=== PATIENT | female | born 1985 | race American Indian/Alaskan Native ===

== ENCOUNTER 2017-03-22 07:58 | Emergency (ER) | payer OTHER ==
--- NOTE | 2017-03-22 08:28 | Emergency Department Report ---
Minor Respiratory - HPI Chief Complaint: Sore Throat Stated Complaint: SORE THROAT Time Seen by Provider: 03/22/17 08:26 Duration: 3 Days Pain Location: Throat Severity: moderate Minor Respiratory: Yes Sore Throat, Yes Able to Tolerate Fluids, No Rhinorrhea, No Ear Pain, No Cough, No Sick Contacts (works in rest), No Hemoptysis, No Chest Pain, No Shortness of Breath, No Fever Other History: dm ED Review of Systems ROS: Stated complaint: SORE THROAT Other details as noted in HPI Comment: Unobtainable due to pts medical conditions Constitutional: no symptoms reported, see HPI. denies: chills, diaphoresis, fever, malaise, weakness Eyes: as per HPI. denies: eye pain, eye discharge, vision change ENT: as per HPI, throat pain, other (no exudate but does have 2 small opal appearing areas. no abscess.). denies: ear pain, dental pain, hearing loss, epistaxis, congestion Respiratory: no symptoms reported, see HPI. denies: cough, orthopnea, shortness of breath, SOB with exertion, SOB at rest, stridor, wheezing Cardiovascular: as per HPI. denies: chest pain, palpitations, dyspnea on exertion, orthopnea, edema, syncope, paroxysmal nocturnal dyspnea Endocrine: no symptoms reported, see HPI. denies: excessive sweating, flushing , intolerance to cold, intolerance to heat, increased hunger, increased thirst, increased urine, unexplained weight gain, unexplained weight loss Gastrointestinal: as per HPI. denies: abdominal pain, nausea, vomiting, diarrhea, constipation, hematemesis, melena, hematochezia Genitourinary: as per HPI. denies: urgency, dysuria, frequency, hematuria, discharge, abnormal menses, dyspareunia Musculoskeletal: as per HPI. denies: back pain, joint swelling, arthralgia, myalgia Skin: as per HPI. denies: rash, lesions, change in color, change in hair/nails , pruritus Neurological: as per HPI. denies: headache, weakness, numbness, paresthesias, confusion, abnormal gait, vertigo Psychiatric: as per HPI. denies: anxiety, depression, auditory hallucinations, visual hallucinations, homicidal thoughts, suicidal thoughts Hematological/Lymphatic: as per HPI. denies: easy bleeding, easy bruising, swollen glands ED Past Medical Hx - Past Medical History Previous Medical History?: Yes Hx Diabetes: Yes (for 3 y sees pcp) - Surgical History Past Surgical History?: Yes Additional Surgical History: 3 c-sections - Family History Family history: diabetes (mother) - Social History Smoking Status: Current Some Day Smoker Substance Use Type: None - Medications Home Medications: Home Medications Medication Instructions Recorded Confirmed Last Taken Type glipiZIDE [Glucotrol] 5 mg PO QDAY #30 tablet 07/18/14 05/14/15 05/14/15 08:00 Rx metFORMIN [Glucophage] 850 mg PO BID #60 tablet 07/18/14 05/14/15 05/14/15 08: 00 Rx Insulin Glargine [Lantus] 40 unit SUB-Q BID 05/14/15 05/14/15 Unknown History Amoxicillin [Trimox CAP] 500 mg PO BID #20 capsule 03/22/17 Unknown Rx Minor Respiratory Exam - Exam General: Vital signs noted. No distress. Alert and acting appropriately. HEENT: Yes Pharyngeal Erythema, Yes Moist Mucous Membranes, No Pharyngeal Exudates, No Rhinorrhea, No Conjuctival Injection, No Frontal Tenderness, No Maxillary Tenderness Ear: Neither TM Bulge, Neither TM Erythema, Neither EAC Pain, Neither EAC Discharge Neck: Yes Supple, No Adenopathy Lungs: Yes Good Air Exchange, No Wheezes, No Ronchi, No Stridor, No Cough, No Labored Respirations, No Retractions, No Use of Accessory Muscles, No Other Abnormal Lung Sounds Heart: Yes Regular, No Murmur Abdomen: Yes Normal Bowel Sounds, No Tenderness, No Peritoneal Signs Skin: No Rash, No Edema Neurologic: Alert and oriented, no deficits. Musculoskeletal: Unremarkable. 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 no cp no sob no dizziness no polyuria/dipsia/phasia did not take insulin today- she is only on insulin (not other meds on med rec on admit, rn notified) bs 494 insulin sq per orders pt educated given dm materials and referred to DM class at [facility]- free 03/22/17 09:50 bs trending down no tachy no hypotension no cp no sob no polyuria no polydipsia pt states pcp told her HgA1C was high but she can not remember number. She is not compliant w diet- she never got dm education bc her ins did not cover it. Reevaluation #2: 03/22/17 10:05 vss. no complaints on dc taking po bs trending down education reinforced fu pcp on Sunday ED Medical Decision Making - Medical Decision Making pharyngitis, non ill appearing DM- did not take insulin this am- hyperglycemic see note Critical care attestation.: If time is entered above; I have spent that time in minutes in the direct care of this critically ill patient, excluding procedure time. ED Disposition Clinical Impression: Pharyngitis, Diabetes, Hyperglycemia Disposition: DC-01 TO HOME OR SELFCARE Is pt being admited?: No Does the pt Need Aspirin: No Condition: Stable Instructions: How to Check Your Blood Sugar (ED), Diabetic Foot Care (ED), Diabetic Hypoglycemia (ED), Diabetes Mellitus Type 2 in Adults (ED), Managing Diabetes During Sick Days (ED), Hyperglycemia, Non-Diabetic (ED), Diabetic Hyperglycemia (ED) Additional Instructions: rest fluids good hand washing new tooth brush med as ordered monitor your blood sugar- it may go up due to illness, keep a record of bs in your phone or on paper to show your pcp. follow up pcp Sunday for recheck motrin and/or tylenol alternating for pain or fever diabetic diet as we discussed See attached papers diabetic class as we discussed Prescriptions: Amoxicillin [Trimox CAP] 500 mg PO BID #20 capsule Referrals: KODAK EPPERSON MD [Staff Physician] - 3-5 Days PRIMARY MD CELINA [Primary Care Provider] - 3-5 Days [facility] [Outside] - 3-5 Days [facility] [Outside] - 3-5 Days ASHISH MORALES MD [Referring] - 3-5 Days Forms: Work/School Release Form(ED) Time of Disposition: 08:39
[2017-03-22] MEDS ORDERED: TRIMOX PO ONE (08:37)
[2017-03-22 08:56] VITALS: BP 111/80
== END 2017-03-22 09:57 | disposition home or self-care (01) ==
LOC: ED 07:58
DX: J02.9 Acute pharyngitis, unspecified (principal); E11.65 Type 2 diabetes mellitus with hyperglycemia; Z72.0 Tobacco use; Z79.4 Long term (current) use of insulin
CPT/HCPCS: 82962; 96372; J1815

== ENCOUNTER 2017-09-24 10:05 | Inpatient (IN) | payer OTHER ==
[2017-09-24 10:45] LABS: BUN/Creatinine Ratio 16; Blood Urea Nitrogen 11 mg/dL (7-17); Calcium 9.1 mg/dL (8.4-10.2); Hemolysis Index 17
[2017-09-24 10:56] LABS: Basophils # (Auto) 0.1 K/mm3 (0.0-0.1); Basophils % (Auto) 0.5 % (0.0-1.8); Eosinophils % (Auto) 0.1 % (0.0-4.3); Hematocrit 50.1 % (30.3-42.9); Hemoglobin 16.2 gm/dl (10.1-14.3); Lymphocytes # (Auto) 1.8 K/mm3 (1.2-5.4); Lymphocytes % (Auto) 12.8 % (13.4-35.0); Mean Corpuscular HGB Conc 32 % (30-34); Mean Corpuscular Hemoglobin 32 pg (28-32); Mean Corpuscular Volume 99 fl (79-97); Monocytes # (Auto) 0.4 K/mm3 (0.0-0.8); Monocytes % (Auto) 2.9 % (0.0-7.3); Platelet Count 330 K/mm3 (140-440); Red Blood Count 5.09 M/mm3 (3.65-5.03); Red Cell Distribution Width 13.7 % (13.2-15.2)
[2017-09-24] MEDS ORDERED: NACL 0.9% 1000 ML 1,000 ML IV ONE ×2 (11:11→11:23)
[2017-09-24] MEDS ORDERED: D50W (25GM) Syringe IV PRN (11:12)
[2017-09-24 11:47] LABS: Bilirubin,Urine NEG (Negative); Blood,Urine SM (Negative); Color,Urine Straw (Yellow); Mucus,Urine FEW /HPF; Urobilinogen,Urine < 2.0 mg/dL (<2.0)
[2017-09-24 11:50] LABS: HCG Qualitative,Urine Negative (Negative)
[2017-09-24 12:18] LABS: INR 1.07 (0.87-1.13)
[2017-09-24 12:19] LABS: Partial Thromboplastin Time 24.2 Sec. (24.2-36.6)
[2017-09-24 12:28] LABS: BUN/Creatinine Ratio 17; Blood Urea Nitrogen 12 mg/dL (7-17); Calcium 9.2 mg/dL (8.4-10.2); Hemolysis Index 5
[2017-09-24 12:29] LABS: Creatine Kinase MB 2.2 ng/mL (0.0-4.0)
[2017-09-24 12:32] LABS: Albumin 5.1 g/dL (3.9-5); Bilirubin,Direct 0.3 mg/dL (0-0.2)
--- NOTE | 2017-09-24 12:44 | Emergency Department Report ---
ED General Adult HPI - General Chief complaint: Hyperglycemia Stated complaint: HIGH BLOOD SUGAR Time Seen by Provider: 09/24/17 11:06 Source: patient, family Mode of arrival: Ambulatory Limitations: No Limitations - History of Present Illness Initial comments: Patient is poorly communicative. She is able to communicate but is choosing not to at this point. She arrives here with her /significant other. He states that she always comes here and she was here last year for similar symptoms. I did not find a record of her being admitted for DKA here last year. In any case the principal concern has been elevated blood sugars. The patient herself is not answering questions. She takes 2 types of insulin but is not telling us which type. The gentleman with her in for his knee she has been vomiting. She took additional insulin during the night. -: Gradual, hour(s), days(s) Associated Symptoms: nausea/vomiting - Related Data Home Medications Medication Instructions Recorded Confirmed Last Taken Insulin Glargine [Lantus] 40 unit SUB-Q BID 05/14/15 05/14/15 Unknown Previous Rx's Medication Instructions Recorded Last Taken Type glipiZIDE [Glucotrol] 5 mg PO QDAY #30 tablet 07/18/14 05/14/15 08:00 Rx metFORMIN [Glucophage] 850 mg PO BID #60 tablet 07/18/14 05/14/15 08:00 Rx Amoxicillin [Trimox CAP] 500 mg PO BID #20 capsule 03/22/17 Unknown Rx Allergies Allergy/AdvReac Type Severity Reaction Status Date / Time No Known Allergies Allergy Verified 09/24/17 10:18 ED Review of Systems ROS: Stated complaint: HIGH BLOOD SUGAR Other details as noted in HPI Comment: Unobtainable due to pts medical conditions ED Past Medical Hx - Past Medical History Previous Medical History?: Yes Hx Diabetes: Yes - Surgical History Past Surgical History?: Yes Additional Surgical History: 3 c-sections - Social History Smoking Status: Current Every Day Smoker Substance Use Type: Alcohol - Medications Home Medications: Home Medications Medication Instructions Recorded Confirmed Last Taken Type glipiZIDE [Glucotrol] 5 mg PO QDAY #30 tablet 07/18/14 05/14/15 05/14/15 08:00 Rx metFORMIN [Glucophage] 850 mg PO BID #60 tablet 07/18/14 05/14/15 05/14/15 08: 00 Rx Insulin Glargine [Lantus] 40 unit SUB-Q BID 05/14/15 05/14/15 Unknown History Amoxicillin [Trimox CAP] 500 mg PO BID #20 capsule 03/22/17 Unknown Rx ED Physical Exam - General Limitations: Altered Mental Status General appearance: alert, lethargic - Head Head exam: Present: atraumatic, normocephalic - Eye Eye exam: Present: normal appearance. Absent: scleral icterus - ENT ENT exam: Present: mucous membranes dry - Neck Neck exam: Present: normal inspection. Absent: tenderness, meningismus - Respiratory Respiratory exam: Present: normal lung sounds bilaterally. Absent: respiratory distress - Cardiovascular Cardiovascular Exam: Present: normal rhythm, tachycardia. Absent: systolic murmur, diastolic murmur, rubs, gallop - GI/Abdominal GI/Abdominal exam: Present: soft, tenderness (past has some tenderness in the left lower quadrant without peritoneal signs), normal bowel sounds. Absent: distended, guarding, rebound, rigid, organomegaly, mass, bruit, pulsatile mass, hernia - Extremities Exam Extremities exam: Present: normal inspection - Back Exam Back exam: Present: normal inspection - Neurological Exam Neurological exam: Present: altered, CN II-XII intact. Absent: motor sensory deficit - Psychiatric Psychiatric exam: Present: anxious, flat affect - Skin Skin exam: Present: warm, dry, intact, normal color. Absent: rash ED Course Vital Signs 09/24/17 09/24/17 09/24/17 10:16 11:07 11:15 Temperature 97.4 F L Pulse Rate 104 H 94 H 99 H Respiratory 16 14 18 Rate Blood Pressure 107/72 118/77 O2 Sat by Pulse 100 98 100 Oximetry 09/24/17 09/24/17 09/24/17 11:31 11:45 12:05 Temperature Pulse Rate 100 H 101 H Respiratory 19 18 14 Rate Blood Pressure 120/78 127/82 O2 Sat by Pulse 99 99 98 Oximetry - Reevaluation(s) Reevaluation #1: Patient is getting IV fluids. Insulin drip has been ordered. She did have an elevated lactic acid level. Empiric antibiotics (Zosyn and vancomycin) have been ordered. CT of the abdomen and pelvis is pending. Hospitalist has been informed of the ICU admission. I have paged the eICU physician as well. 09/24/17 12:50 ED Medical Decision Making - Lab Data Result diagrams: 09/24/17 10:21 09/24/17 11:45 Laboratory Results - last 24 hr 09/24/17 09/24/17 09/24/17 10:21 10:21 10:21 WBC 13.8 H RBC 5.09 H Hgb 16.2 H Hct 50.1 H MCV 99 H MCH 32 MCHC 32 RDW 13.7 Plt Count 330 Lymph % (Auto) 12.8 L Alfalfa % (Auto) 2.9 Eos % (Auto) 0.1 Baso % (Auto) 0.5 Lymph # 1.8 Alfalfa # 0.4 Eos # 0.0 Baso # 0.1 Seg Neutrophils % 83.7 H Seg Neutrophils # 11.6 H PT INR APTT VBG pH 7.010 L* Sodium 132 L Potassium 4.5 Chloride 96.4 L Carbon Dioxide 9 L* Anion Gap 31 BUN 11 Creatinine 0.7 Estimated GFR > 60 BUN/Creatinine Ratio 16 Glucose 317 H POC Glucose Lactic Acid Calcium 9.1 Phosphorus Magnesium Total Bilirubin Direct Bilirubin Indirect Bilirubin AST ALT Alkaline Phosphatase Total Creatine Kinase CK-MB (CK-2) CK-MB (CK-2) Rel Index Troponin T Total Protein Albumin Albumin/Globulin Ratio HCG, Qual Urine Color Urine Turbidity Urine pH Ur Specific [place] Urine Protein Urine Glucose (UA) Urine Ketones Urine Blood Urine Nitrite Urine Bilirubin Urine Urobilinogen Ur Leukocyte Esterase Urine WBC (Auto) Urine RBC (Auto) U Epithel Cells (Auto) Urine Mucus Urine HCG, Qual 09/24/17 09/24/17 09/24/17 11:29 11:33 11:45 WBC RBC Hgb Hct MCV MCH MCHC RDW Plt Count Lymph % (Auto) Alfalfa % (Auto) Eos % (Auto) Baso % (Auto) Lymph # Alfalfa # Eos # Baso # Seg Neutrophils % Seg Neutrophils # PT INR APTT VBG pH Sodium Potassium Chloride Carbon Dioxide Anion Gap BUN Creatinine Estimated GFR BUN/Creatinine Ratio Glucose POC Glucose 269 H Lactic Acid Calcium Phosphorus 3.20 Magnesium 2.10 Total Bilirubin Direct Bilirubin Indirect Bilirubin AST ALT Alkaline Phosphatase Total Creatine Kinase CK-MB (CK-2) CK-MB (CK-2) Rel Index Troponin T Total Protein Albumin Albumin/Globulin Ratio HCG, Qual Urine Color Straw Urine Turbidity Clear Urine pH 5.0 Ur Specific [place] 1.022 Urine Protein 100 mg/dl Urine Glucose (UA) >=500 Urine Ketones 80 Urine Blood Sm Urine Nitrite Neg Urine Bilirubin Neg Urine Urobilinogen < 2.0 Ur Leukocyte Esterase Neg Urine WBC (Auto) 4.0 Urine RBC (Auto) 3.0 U Epithel Cells (Auto) 3.0 Urine Mucus Few Urine HCG, Qual Negative 09/24/17 09/24/17 09/24/17 11:45 11:45 11:45 WBC RBC Hgb Hct MCV MCH MCHC RDW Plt Count Lymph % (Auto) Alfalfa % (Auto) Eos % (Auto) Baso % (Auto) Lymph # Alfalfa # Eos # Baso # Seg Neutrophils % Seg Neutrophils # PT 14.5 INR 1.07 APTT 24.2 VBG pH Sodium 133 L Potassium 4.9 Chloride 95.5 L Carbon Dioxide 6 L* Anion Gap 36 BUN 12 Creatinine 0.7 Estimated GFR > 60 BUN/Creatinine Ratio 17 Glucose 326 H POC Glucose Lactic Acid Calcium 9.2 Phosphorus Magnesium Total Bilirubin 0.80 Direct Bilirubin 0.3 H Indirect Bilirubin 0.5 AST 16 ALT 18 Alkaline Phosphatase 109 Total Creatine Kinase 101 CK-MB (CK-2) 2.2 CK-MB (CK-2) Rel Index 2.1 Troponin T Total Protein 8.7 H Albumin 5.1 H Albumin/Globulin Ratio 1.4 HCG, Qual Urine Color Urine Turbidity Urine pH Ur Specific [place] Urine Protein Urine Glucose (UA) Urine Ketones Urine Blood Urine Nitrite Urine Bilirubin Urine Urobilinogen Ur Leukocyte Esterase Urine WBC (Auto) Urine RBC (Auto) U Epithel Cells (Auto) Urine Mucus Urine HCG, Qual 09/24/17 09/24/17 09/24/17 11:45 11:45 11:50 WBC RBC Hgb Hct MCV MCH MCHC RDW Plt Count Lymph % (Auto) Alfalfa % (Auto) Eos % (Auto) Baso % (Auto) Lymph # [place]alf[place] # Eos # Baso # Seg Neutrophils % Seg Neutrophils # PT INR APTT VBG pH Sodium Potassium Chloride Carbon Dioxide Anion Gap BUN Creatinine Estimated GFR BUN/Creatinine Ratio Glucose POC Glucose Lactic Acid 2.60 H* Calcium Phosphorus Magnesium Total Bilirubin Direct Bilirubin Indirect Bilirubin AST ALT Alkaline Phosphatase Total Creatine Kinase CK-MB (CK-2) CK-MB (CK-2) Rel Index Troponin T < 0.010 Total Protein Albumin Albumin/Globulin Ratio HCG, Qual Negative Urine Color Urine Turbidity Urine pH Ur Specific [place] Urine Protein Urine Glucose (UA) Urine Ketones Urine Blood Urine Nitrite Urine Bilirubin Urine Urobilinogen Ur Leukocyte Esterase Urine WBC (Auto) Urine RBC (Auto) U Epithel Cells (Auto) Urine Mucus Urine HCG, Qual Critical Care Time: Yes Critical care time in (mins) excluding proc time.: 75 Critical care attestation.: If time is entered above; I have spent that time in minutes in the direct care of this critically ill patient, excluding procedure time. ED Disposition Clinical Impression: Elevated lactic acid level DKA (diabetic ketoacidoses) Qualifiers: Diabetes mellitus type: type 1 Diabetes mellitus complication detail: without coma Qualified Code(s): E10.10 - Type 1 diabetes mellitus with ketoacidosis without coma Abdominal pain Qualifiers: Abdominal location: left lower quadrant Qualified Code(s): R10.32 - Left lower quadrant pain Disposition: DC-09 OP ADMIT IP TO THIS HOSP Is pt being admited?: Yes Does the pt Need Aspirin: Yes Condition: Stable Instructions: Diabetic Ketoacidosis (ED) Time of Disposition: 12:54
[2017-09-24] MEDS ORDERED: ZOSYN/NS 4.5GM/100ML 4.5 GM/100 ML VIAL IV SCH (13:00)
[2017-09-24] MEDS: HumuLIN R 100 UNITS in NACL 0.9% 99 ML IV SCH (13:10)
--- NOTE | 2017-09-24 13:19 | XRay Report ---
AP CHEST: HISTORY: Hypertension AP view of the chest demonstrates a normal mediastinal and cardiac contour with clear lungs and normal bony and soft tissue structures. IMPRESSION: Unremarkable AP chest.
--- NOTE | 2017-09-24 13:46 | Consultation ---
History of Present Illness Consult date: 09/24/17 Reason for consult: other (nausea,vomiting, uncontrolled BS/DKA) History of present illness: 32 y/o AAF , been admitted to the CCU with history of nausea, vomits, prostration,mild mid abdominal pain. Sx noted last night, presented to ED this morniong. No fever or chills. Some diarrhes or soft stool. HX provided by , patient not very communicative.On 2 insulin TX at home, reportedly compliant. No additional complains reported at this point. Medications and Allergies Allergies Allergy/AdvReac Type Severity Reaction Status Date / Time No Known Allergies Allergy Verified 09/24/17 10:18 Home Medications Medication Instructions Recorded Confirmed Last Taken Type glipiZIDE [Glucotrol] 5 mg PO QDAY #30 tablet 07/18/14 05/14/15 05/14/15 08:00 Rx metFORMIN [Glucophage] 850 mg PO BID #60 tablet 07/18/14 05/14/15 05/14/15 08: 00 Rx Insulin Glargine [Lantus] 40 unit SUB-Q BID 05/14/15 05/14/15 Unknown History Amoxicillin [Trimox CAP] 500 mg PO BID #20 capsule 03/22/17 Unknown Rx Active Meds: Active Medications Dextrose (D50w (25gm) Syringe) 0 ml IV ONCE PRN PRN Reason: Hypoglycemia Insulin Human Regular 100 (units/ Sodium Chloride) 100 mls @ 1 mls/hr IV TITR KATIE; Protocol Piperacillin Sod/Tazobactam Sod (Zosyn/Ns 4.5gm/100ml) 4.5 gm in 100 mls @ 200 mls/hr IV ONCE KATIE Physical Examination Vital signs: Vital Signs Temp Pulse Resp BP Pulse Ox 97.4 F L 104 H 16 107/72 100 09/24/17 10:16 09/24/17 10:16 09/24/17 10:16 09/24/17 10:16 09/24/17 10:16 General appearance: lethargic Eyes: non-icteric ENT: oropharynx dry Neck: supple, no JVD Ascultation: Bilateral: clear Cardiovascular: regular rate and rhythm Gastrointestinal: normoactive bowel sounds, non-distended Integumentary: normal Extremities: no cyanosis, no edema Musculoskeletal: no deformities non-focal exam, pupils equal and round, CN II-XII normal, motor strength normal and, other (partially cooperative, avoids talking herself) depressed Results - Laboratory Findings CBC and BMP: 09/24/17 10:21 09/24/17 11:45 PT/INR, D-dimer PT 14.5 Sec. (12.2-14.9) 09/24/17 11:45 INR 1.07 (0.87-1.13) 09/24/17 11:45 Abnormal lab findings: Abnormal Labs 09/24/17 09/24/17 09/24/17 10:21 10:21 10:21 WBC 13.8 H RBC 5.09 H Hgb 16.2 H Hct 50.1 H MCV 99 H Lymph % (Auto) 12.8 L Seg Neutrophils % 83.7 H Seg Neutrophils # 11.6 H VBG pH 7.010 L* Sodium 132 L Chloride 96.4 L Carbon Dioxide 9 L* Glucose 317 H POC Glucose Lactic Acid Direct Bilirubin Total Protein Albumin Salicylates 09/24/17 09/24/17 09/24/17 11:29 11:45 11:45 WBC RBC Hgb Hct MCV Lymph % (Auto) Seg Neutrophils % Seg Neutrophils # VBG pH Sodium 133 L Chloride 95.5 L Carbon Dioxide 6 L* Glucose 326 H POC Glucose 269 H Lactic Acid Direct Bilirubin 0.3 H Total Protein 8.7 H Albumin 5.1 H Salicylates 09/24/17 09/24/17 11:45 11:50 WBC RBC Hgb Hct MCV Lymph % (Auto) Seg Neutrophils % Seg Neutrophils # VBG pH Sodium Chloride Carbon Dioxide Glucose POC Glucose Lactic Acid 2.60 H* Direct Bilirubin Total Protein Albumin Salicylates < 0.3 L - Diagnostic Findings Chest x-ray: report reviewed Assessment and Plan DKA Metabolic/ lactate acidosis Abdominal pain. HCG negative. No obvious UTI per U/A. Lipase is normal Recommendations Agree with admission to the ICU Insulin drip , follow-up DKA protocol orders. Initiate insulin, sliding scale blood sugar monitoring closely Replace IV fluid normal saline 1 L, then follow with 0.45% saline at 200-250 mL per hour next 12-24 hours. Switch to 0.45/D5W once blood sugars under 250 mg/DL Monitor ph, serial electrolytes,AG, osmolality (avoid rapid drops) closely q 2- 4 hr Serial lactate levels Update ABGs once hydration in process of the ICU. Agree with Zosyn IV Procalcitonin level Continue oxygen support The patient nothing by mouth for the moment, initiate oral nutrition with blood sugar back to normal and anion gap has closed Discussed with staff in detail. Critical care time was 31 minutes of [id number] evaluation and coordination of care
[2017-09-24 13:53] LABS: BUN/Creatinine Ratio 18; Blood Urea Nitrogen 11 mg/dL (7-17); Calcium 8.4 mg/dL (8.4-10.2); Hemolysis Index 9
--- NOTE | 2017-09-24 14:42 | Cat Scan Report ---
CT ABDOMEN PELVIS WITH CONTRAST: HISTORY: Lower quadrant abdominal pain, lactic acidosis, diabetic ketoacidosis. COMPARISON: none. TECHNIQUE: Helical CT in 1.25mm intervals following IV contrast. Sagittal and coronal reconstructions. FINDINGS: Lung bases: Normal. Liver: Normal. Biliary system: Normal. Pancreas: Normal. Spleen: Normal. Kidneys/ureters/bladder: Within normal limits. Few tiny cysts measuring less than 1 cm are noted in the left kidney. Adrenal glands: Normal. Aorta: Normal. Intestines: Normal. Appendix: Normal. Pelvic viscera: Normal. An intrauterine device appears to be in good position. Ascites: None. Adenopathy: None. Musculoskeletal: Normal. IMPRESSION: Unremarkable CT scan of the abdomen and pelvis with contrast.
[2017-09-24 14:52] LABS: Amphetamine Screen,Urine PRESUMPTIVE NEGATIVE; Benzodiazepines Screen,Urine PRESUMPTIVE NEGATIVE; Cannabinoid Screen,Urine PRESUMPTIVE NEGATIVE; Cocaine Screen,Urine PRESUMPTIVE NEGATIVE; Methadone Screen,Urine PRESUMPTIVE NEGATIVE; Opiate Screen,Urine PRESUMPTIVE NEGATIVE
[2017-09-24] MEDS ORDERED: NACL 0.9% 1000 ML 1,000 ML ONE (15:27)
[2017-09-24 15:55] LABS: BUN/Creatinine Ratio 18; Blood Urea Nitrogen 11 mg/dL (7-17); Calcium 8.5 mg/dL (8.4-10.2); Hemolysis Index 61
--- NOTE | 2017-09-24 17:56 | History and Physical Report ---
History of Present Illness Date of examination: 09/24/17 Date of admission: 09/24/17 13:02 Chief complaint: CC:Nauseous and weak for 2 days History of present illness: History of Present Illness: A [age]-year-old -Polish female with history of diabetes not taking her insulin for the last 2 days comes in for feeling weak and nauseous. vomited couple of times Some abdominal discomfort present. No fever no chills. Patient has DKA's in the past. Intermittently noncompliant with medications. No shortness of breath. No recent travel. Past Medical History Previous Me onlydical History?: Yes Hx Diabetes: Yes - Surgical History Past Surgical History?: Yes Additional Surgical History: 3 c-sections - Social History Smoking Status: Current Every Day Smoker Substance Use Type: Alcohol Family history Htn - Medications Home Medications: Home Medications Medication Instructions Recorded Confirmed Last Taken Type glipiZIDE [Glucotrol] 5 mg PO QDAY #30 tablet 07/18/14 05/14/15 05/14/15 08:00 Rx metFORMIN [Glucophage] 850 mg PO BID #60 tablet 07/18/14 05/14/15 05/14/15 08: 00 Rx Insulin Glargine [Lantus] 40 unit SUB-Q BID 05/14/15 05/14/15 Unknown History Amoxicillin [Trimox CAP] 500 mg PO BID #20 capsule 03/22/17 Unknown Rx Medications and Allergies Allergies Allergy/AdvReac Type Severity Reaction Status Date / Time No Known Allergies Allergy Verified 09/24/17 10:18 Home Medications Medication Instructions Recorded Confirmed Last Taken Type Insulin Aspart [NovoLOG Flexpen] 10 units SQ AC 09/24/17 09/24/17 Unknown History Insulin Glargine/Lixisenatide 60 unit SQ DAILY 09/24/17 09/24/17 Unknown History [Soliqua 100 Unit-33 Mcg/ml Pen] Active Meds: Active Medications Dextrose (D50w (25gm) Syringe) 0 ml IV ONCE PRN PRN Reason: Hypoglycemia Insulin Human Regular 100 (units/ Sodium Chloride) 100 mls @ 1 mls/hr IV TITR KATIE; Protocol Piperacillin Sod/Tazobactam Sod (Zosyn/Ns 4.5gm/100ml) 4.5 gm in 100 mls @ 200 mls/hr IV ONCE KATIE Review of Systems All systems: negative Constitutional: no weight loss, no weight gain, no fever, no chills, no sweats, no night sweats Ears, nose, mouth and throat: no hoarseness, no sore throat, no swelling in mouth, no swelling in throat Breasts: deferred Cardiovascular: no chest pain, no orthopnea, no palpitations, no rapid/ irregular heart beat, no edema, no syncope, no lightheadedness, no shortness of breath Respiratory: no cough, no cough with sputum, no excessive sputum, no hemoptysis , no shortness of breath, no dyspnea on exertion Gastrointestinal: no abdominal pain, no nausea, no vomiting, no diarrhea, no constipation, no change in bowel habits, no hematemesis, no coffee ground emesis Genitourinary Female: no dysuria, no urinary frequency, no urgency, no stress incontinence, no post void dribbling, no incomplete emptying, no urge incontinence Rectal: no pain Musculoskeletal: no neck stiffness, no neck pain, no shooting arm pain, no arm numbness/tingling, no low back pain, no shooting leg pain, no leg numbness/ tingling, no redness of joints Integumentary: no rash, no pruritis, no redness, no sores, no wounds, no jaundice, no boils, no blisters Neurological: no seizures, no syncope Psychiatric: no anxiety, no memory loss, no change in sleep habits, no sleep disturbances, no insomnia, no hypersomnia, no change in appetite, no change in libido, no suicidal ideation, no disorientation, no hallucinations Endocrine: polyphagia, excessive thirst, polydipsia, nocturia, no cold intolerance, no heat intolerance, no polyuria Hematologic/Lymphatic: no easy bruising, no easy bleeding Allergic/Immunologic: no urticaria, no allergic rhinitis, no wheezing Exam - Constitutional Vitals: Temp Pulse Resp BP Pulse Ox 97.4 F L 101 H 14 127/82 98 09/24/17 10:16 09/24/17 11:45 09/24/17 12:05 09/24/17 11:45 09/24/17 12:05 General appearance: Present: mild distress, well-nourished - EENT Eyes: Present: PERRL ENT: hearing intact, clear oral mucosa - Neck Neck: Present: supple, normal ROM - Respiratory Respiratory effort: normal Respiratory: bilateral: CTA - Cardiovascular Heart rate: 80 Rhythm: regular Heart Sounds: Present: S1 & S2. Absent: rub, click - Extremities Extremities: no ischemia, pulses intact, pulses symmetrical, No edema Peripheral Pulses: within normal limits - Abdominal General gastrointestinal: Present: soft, non-tender, non-distended, normal bowel sounds Female genitourinary: Present: normal - Rectal Rectal Exam: deferred - Integumentary Integumentary: Present: clear, warm, dry - Musculoskeletal Musculoskeletal: gait normal, strength equal bilaterally - Psychiatric Psychiatric: appropriate mood/affect, intact judgment & insight - Neurologic Neurologic: CNII-XII intact, moves all extremities - Allied Health Allied health notes reviewed: nursing, case management Results - Labs CBC & Chem 7: 09/24/17 10:21 09/24/17 15:13 Labs: Laboratory Last Values WBC 13.8 K/mm3 (4.5-11.0) H 09/24/17 10:21 RBC 5.09 M/mm3 (3.65-5.03) H 09/24/17 10:21 Hgb 16.2 gm/dl (10.1-14.3) H 09/24/17 10:21 Hct 50.1 % (30.3-42.9) H 09/24/17 10:21 MCV 99 fl (79-97) H 09/24/17 10:21 MCH 32 pg (28-32) 09/24/17 10:21 MCHC 32 % (30-34) 09/24/17 10:21 RDW 13.7 % (13.2-15.2) 09/24/17 10:21 Plt Count 330 K/mm3 (140-440) 09/24/17 10:21 Lymph % (Auto) 12.8 % (13.4-35.0) L 09/24/17 10:21 [place] % (Auto) 2.9 % (0.0-7.3) 09/24/17 10:21 Eos % (Auto) 0.1 % (0.0-4.3) 09/24/17 10:21 Baso % (Auto) 0.5 % (0.0-1.8) 09/24/17 10:21 Lymph # 1.8 K/mm3 (1.2-5.4) 09/24/17 10:21 [place] # 0.4 K/mm3 (0.0-0.8) 09/24/17 10:21 Eos # 0.0 K/mm3 (0.0-0.4) 09/24/17 10:21 Baso # 0.1 K/mm3 (0.0-0.1) 09/24/17 10:21 Seg Neutrophils % 83.7 % (40.0-70.0) H 09/24/17 10:21 Seg Neutrophils # 11.6 K/mm3 (1.8-7.7) H 09/24/17 10:21 PT 14.5 Sec. (12.2-14.9) 09/24/17 11:45 INR 1.07 (0.87-1.13) 09/24/17 11:45 APTT 24.2 Sec. (24.2-36.6) 09/24/17 11:45 VBG pH 7.010 (7.320-7.420) L* 09/24/17 10:21 Sodium 137 mmol/L (137-145) 09/24/17 15:13 Potassium 5.1 mmol/L (3.6-5.0) H 09/24/17 15:13 Chloride 103.3 mmol/L (98-107) 09/24/17 15:13 Carbon Dioxide 3 mmol/L (22-30) L* 09/24/17 15:13 Anion Gap 36 mmol/L 09/24/17 15:13 BUN 11 mg/dL (7-17) 09/24/17 15:13 Creatinine 0.6 mg/dL (0.7-1.2) L 09/24/17 15:13 Estimated GFR > 60 ml/min 09/24/17 15:13 BUN/Creatinine Ratio 18 % 09/24/17 15:13 Glucose 245 mg/dL (65-100) H 09/24/17 15:13 POC Glucose 237 (70-105) H 09/24/17 17:34 Lactic Acid 2.50 mmol/L (0.7-2.0) H* 09/24/17 15:13 Calcium 8.5 mg/dL (8.4-10.2) 09/24/17 15:13 Phosphorus 3.20 mg/dL (2.5-4.5) 09/24/17 11:45 Magnesium 2.10 mg/dL (1.7-2.3) 09/24/17 11:45 Total Bilirubin 0.80 mg/dL (0.1-1.2) 09/24/17 11:45 Direct Bilirubin 0.3 mg/dL (0-0.2) H 09/24/17 11:45 Indirect Bilirubin 0.5 mg/dL 09/24/17 11:45 AST 16 units/L (5-40) 09/24/17 11:45 ALT 18 units/L (7-56) 09/24/17 11:45 Alkaline Phosphatase 109 units/L (35-129) 09/24/17 11:45 Total Creatine Kinase 101 units/L (30-135) 09/24/17 11:45 CK-MB (CK-2) 2.2 ng/mL (0.0-4.0) 09/24/17 11:45 CK-MB (CK-2) Rel Index 2.1 (0-4) 09/24/17 11:45 Troponin T < 0.010 ng/mL (0.00-0.029) 09/24/17 11:45 Total Protein 8.7 g/dL (6.3-8.2) H 09/24/17 11:45 Albumin 5.1 g/dL (3.9-5) H 09/24/17 11:45 Albumin/Globulin Ratio 1.4 % 09/24/17 11:45 Lipase 15 units/L (13-60) 09/24/17 11:45 HCG, Qual Negative (Negative) 09/24/17 11:45 Urine Color Straw (Yellow) 09/24/17 11:33 Urine Turbidity Clear (Clear) 09/24/17 11:33 Urine pH 5.0 (5.0-7.0) 09/24/17 11:33 Ur Specific [place] 1.022 (1.003-1.030) 09/24/17 11:33 Urine Protein 100 mg/dl mg/dL (Negative) 09/24/17 11:33 Urine Glucose (UA) >=500 mg/dL (Negative) 09/24/17 11:33 Urine Ketones 80 mg/dL (Negative) 09/24/17 11:33 Urine Blood Sm (Negative) 09/24/17 11:33 Urine Nitrite Neg (Negative) 09/24/17 11:33 Urine Bilirubin Neg (Negative) 09/24/17 11:33 Urine Urobilinogen < 2.0 mg/dL (<2.0) 09/24/17 11:33 Ur Leukocyte Esterase Neg (Negative) 09/24/17 11:33 Urine WBC (Auto) 4.0 /HPF (0.0-6.0) 09/24/17 11:33 Urine RBC (Auto) 3.0 /HPF (0.0-6.0) 09/24/17 11:33 U Epithel Cells (Auto) 3.0 /HPF (0-13.0) 09/24/17 11:33 Urine Mucus Few /HPF 09/24/17 11:33 Urine HCG, Qual Negative (Negative) 09/24/17 11:33 Salicylates < 0.3 mg/dL (2.8-20.0) L 09/24/17 11:45 Urine Opiates Screen Presumptive negative 09/24/17 Unknown Urine Methadone Screen Presumptive negative 09/24/17 Unknown Acetaminophen < 15.0 ug/mL (10.0-30.0) 09/24/17 11:45 Ur Barbiturates Screen Presumptive negative 09/24/17 Unknown Ur Phencyclidine Scrn Presumptive negative 09/24/17 Unknown Ur Amphetamines Screen Presumptive negative 09/24/17 Unknown U Benzodiazepines Scrn Presumptive negative 09/24/17 Unknown Urine Cocaine Screen Presumptive negative 09/24/17 Unknown U Marijuana (THC) Screen Presumptive negative 09/24/17 Unknown Drugs of Abuse Note Disclamer 09/24/17 Unknown Short CBC 09/24/17 Range/Units 10:21 WBC 13.8 H (4.5-11.0) K/mm3 Hgb 16.2 H (10.1-14.3) gm/dl Hct 50.1 H (30.3-42.9) % Plt Count 330 (140-440) K/mm3 BMP 09/24/17 09/24/17 09/24/17 10:21 11:45 13:19 Sodium 132 L 133 L 135 L Potassium 4.5 4.9 4.6 Chloride 96.4 L 95.5 L 102.6 Carbon Dioxide 9 L* 6 L* 4 L* BUN 11 12 11 Creatinine 0.7 0.7 0.6 L Glucose 317 H 326 H 278 H Calcium 9.1 9.2 8.4 09/24/17 15:13 Sodium 137 Potassium 5.1 H Chloride 103.3 Carbon Dioxide 3 L* BUN 11 Creatinine 0.6 L Glucose 245 H Calcium 8.5 Cardiac Enzymes 09/24/17 09/24/17 Range/Units 11:45 11:45 Total Creatine Kinase 101 (30-135) units/L CK-MB (CK-2) 2.2 (0.0-4.0) ng/mL Troponin T < 0.010 (0.00-0.029) ng/mL Liver Function 09/24/17 Range/Units 11:45 Total Bilirubin 0.80 (0.1-1.2) mg/dL Direct Bilirubin 0.3 H (0-0.2) mg/dL AST 16 (5-40) units/L ALT 18 (7-56) units/L Alkaline Phosphatase 109 (35-129) units/L Albumin 5.1 H (3.9-5) g/dL Urine 09/24/17 Range/Units 11:33 Urine Color Straw (Yellow) Urine pH 5.0 (5.0-7.0) Ur Specific [place] 1.022 (1.003-1.030) Urine Protein 100 mg/dl (Negative) mg/dL Urine Glucose (UA) >=500 (Negative) mg/dL US revisional Assessment and Plan Assessment and plan: Critical care statement The high probability of a clinically significant sudden or life-threatening deterioration of the pulmonary cardiac and renal systems required my full and direct attention intervention and personal management. The end and radiates critical care time was 32 minutes. This time is in addition to times when performing reported procedures but includes the following. 1 date of review and interpretation 2 patient assessment and monitoring of vital signs 3 documentation 4 Medication orders and management Advance Directives: Yes (full code) VTE prophylaxis?: Chemical Plan of care discussed with patient/family: Yes - Patient Problems (1) DKA (diabetic ketoacidoses) Current Visit: Yes Status: Acute Qualifiers: Diabetes mellitus type: type 1 Diabetes mellitus complication detail: without coma Qualified Code(s): E10.10 - Type 1 diabetes mellitus with ketoacidosis without coma Plan to address problem: Patient is noncompliant. Hence DKA after not taking insulin for 2 days. Patient counseled about compliance. DKA protocol initiated. Patient has severe metabolic acidosis with anion gap of about 33. IV insulin for now IV fluids for now (2) Metabolic acidosis Current Visit: Yes Status: Acute Plan to address problem: continue DKA protocol and monitor electrolytes (3) Obesity Current Visit: Yes Status: Acute Plan to address problem: Counseled (4) DVT prophylaxis Current Visit: Yes Status: Acute
[2017-09-24] MEDS ORDERED: PERCOCET 5/325 PO PRN (18:44)
[2017-09-24] MEDS ORDERED: SODIUM CHLORIDE FLUSH SYRINGE 10 ML IV PRN (18:44)
[2017-09-24] MEDS ORDERED: MORPHINE IV PRN (18:44)
[2017-09-24] MEDS ORDERED: DILAUDID IV PRN (18:44)
[2017-09-24] MEDS: ZOFRAN IV PRN (19:59)
[2017-09-24 20:44] LABS: BUN/Creatinine Ratio 15; Blood Urea Nitrogen 9 mg/dL (7-17); Calcium 8.8 mg/dL (8.4-10.2); Hemolysis Index 42
[2017-09-24] MEDS: SODIUM CHLORIDE FLUSH SYRINGE 10 ML IV SCH (22:05)
[2017-09-24] MEDS: D5/0.45NS 1,000 ML IV SCH (22:06)
[2017-09-24 23:52] LABS: BUN/Creatinine Ratio 15; Blood Urea Nitrogen 9 mg/dL (7-17); Hemolysis Index 11
[2017-09-25 03:59] LABS: BUN/Creatinine Ratio 20; Blood Urea Nitrogen 10 mg/dL (7-17); Calcium 8.8 mg/dL (8.4-10.2); Hemolysis Index 7
[2017-09-25] MEDS: ZOFRAN IV PRN ×3 (05:28→21:55)
[2017-09-25] MEDS: D5/0.45NS 1,000 ML IV SCH ×2 (05:32→16:24)
[2017-09-25] MEDS: HumuLIN R 100 UNITS in NACL 0.9% 99 ML IV SCH ×4 (08:00→11:20)
[2017-09-25] MEDS: SODIUM CHLORIDE FLUSH SYRINGE 10 ML IV SCH (09:13)
--- NOTE | 2017-09-25 09:24 | Progress Note ---
Assessment and Plan DKA. Currently improved and almost controlled. Responded to ongoing treatment , DKA protocol Metabolic/ lactate acidosis. Improved, lactate normal. AG improving Abdominal pain. HCG negative. No obvious UTI per U/A. Lipase is normal Recommendations Continue with Insulin drip , follow-up DKA protocol orders. We'll give some extra fluids, 1 L, then follow with 0.45% saline at 200-250 mL per hour next 12-24 hours. Switch to 0.45/D5W once blood sugars under 250 mg/DL Monitor ph, serial electrolytes,AG, osmolality (avoid rapid drops) closely q 2- 4 hr Initiate by mouth feedings once AG normal Procalcitonin level Once the above is completed, we'll consider transfer as per the ICU for additional management in the floor. We'll continue following patient at the ICU and will sign off once transferred out. not available for case discussion. Discussed with staff in detail. Critical care time was 31 minutes of [id number] evaluation and coordination of care Subjective Date of service: 09/25/17 Principal diagnosis: DKA,lactic acidosis Interval history: Patient asking for chicken broth. She denies any abdominal symptoms at the present time. No respiratory complaints. Objective Vital Signs - 12hr 09/24/17 09/24/17 09/24/17 21:30 21:46 22:00 Temperature Pulse Rate 131 H 131 H 135 H Pulse Rate [ From Monitor] Respiratory 20 19 21 Rate Blood Pressure 117/79 117/79 123/68 Blood Pressure [Left] O2 Sat by Pulse 98 95 98 Oximetry 09/24/17 09/24/17 09/24/17 22:10 22:16 22:58 Temperature 98.6 F Pulse Rate 131 H 135 H Pulse Rate [ 125 H From Monitor] Respiratory 19 20 21 Rate Blood Pressure 123/68 Blood Pressure 123/68 [Left] O2 Sat by Pulse 99 99 Oximetry 09/24/17 09/25/17 09/25/17 23:53 08:00 09:05 Temperature 98.4 F 98.0 F Pulse Rate 107 H Pulse Rate [ From Monitor] Respiratory 15 Rate Blood Pressure Blood Pressure [Left] O2 Sat by Pulse 100 Oximetry Constitutional: alert, lethargic Eyes: non-icteric ENT: oropharynx dry Neck: supple, no JVD Ascultation: Bilateral: clear Cardiovascular: regular rate and rhythm Gastrointestinal: normoactive bowel sounds, non-distended Integumentary: normal Extremities: no cyanosis, no edema Neurologic: non-focal exam, pupils equal and round, CN II-XII normal, motor strength normal and, other (partially cooperative, avoids talking herself) Psychiatric: other (evasive) CBC and BMP: 09/24/17 10:21 09/25/17 10:53 ABG, PT/INR, D-dimer: PT/INR, D-dimer PT 14.5 Sec. (12.2-14.9) 09/24/17 11:45 INR 1.07 (0.87-1.13) 09/24/17 11:45 Abnormal lab findings: Abnormal Labs 09/24/17 09/24/17 09/24/17 10:21 10:21 10:21 WBC 13.8 H RBC 5.09 H Hgb 16.2 H Hct 50.1 H MCV 99 H Lymph % (Auto) 12.8 L Seg Neutrophils % 83.7 H Seg Neutrophils # 11.6 H VBG pH 7.010 L* Sodium 132 L Potassium Chloride 96.4 L Carbon Dioxide 9 L* Creatinine Glucose 317 H POC Glucose Lactic Acid Direct Bilirubin Total Protein Albumin Salicylates 09/24/17 09/24/17 09/24/17 11:29 11:45 11:45 WBC RBC Hgb Hct MCV Lymph % (Auto) Seg Neutrophils % Seg Neutrophils # VBG pH Sodium 133 L Potassium Chloride 95.5 L Carbon Dioxide 6 L* Creatinine Glucose 326 H POC Glucose 269 H Lactic Acid Direct Bilirubin 0.3 H Total Protein 8.7 H Albumin 5.1 H Salicylates 09/24/17 09/24/17 09/24/17 11:45 11:50 13:19 WBC RBC Hgb Hct MCV Lymph % (Auto) Seg Neutrophils % Seg Neutrophils # VBG pH Sodium 135 L Potassium Chloride Carbon Dioxide 4 L* Creatinine 0.6 L Glucose 278 H POC Glucose Lactic Acid 2.60 H* Direct Bilirubin Total Protein Albumin Salicylates < 0.3 L 09/24/17 09/24/17 09/24/17 13:19 15:13 15:13 WBC RBC Hgb Hct MCV Lymph % (Auto) Seg Neutrophils % Seg Neutrophils # VBG pH Sodium Potassium 5.1 H Chloride Carbon Dioxide 3 L* Creatinine 0.6 L Glucose 245 H POC Glucose Lactic Acid 2.30 H* 2.50 H* Direct Bilirubin Total Protein Albumin Salicylates 09/24/17 09/24/17 09/24/17 17:34 19:10 20:09 WBC RBC Hgb Hct MCV Lymph % (Auto) Seg Neutrophils % Seg Neutrophils # VBG pH Sodium Potassium Chloride Carbon Dioxide 6 L* Creatinine 0.6 L Glucose 198 H POC Glucose 237 H 215 H Lactic Acid Direct Bilirubin Total Protein Albumin Salicylates 09/24/17 09/24/17 09/24/17 20:09 20:14 21:22 WBC RBC Hgb Hct MCV Lymph % (Auto) Seg Neutrophils % Seg Neutrophils # VBG pH Sodium Potassium Chloride Carbon Dioxide Creatinine Glucose POC Glucose 189 H 176 H Lactic Acid 2.10 H* Direct Bilirubin Total Protein Albumin Salicylates 09/24/17 09/24/17 09/24/17 22:19 23:10 23:10 WBC RBC Hgb Hct MCV Lymph % (Auto) Seg Neutrophils % Seg Neutrophils # VBG pH Sodium Potassium Chloride Carbon Dioxide 6 L* Creatinine 0.6 L Glucose 207 H POC Glucose 187 H Lactic Acid 2.60 H* Direct Bilirubin Total Protein Albumin Salicylates 09/24/17 09/25/17 09/25/17 23:25 00:15 00:54 WBC RBC Hgb Hct MCV Lymph % (Auto) Seg Neutrophils % Seg Neutrophils # VBG pH Sodium Potassium Chloride Carbon Dioxide Creatinine Glucose POC Glucose 212 H 219 H 223 H Lactic Acid Direct Bilirubin Total Protein Albumin Salicylates 09/25/17 09/25/17 09/25/17 03:24 04:01 05:13 WBC RBC Hgb Hct MCV Lymph % (Auto) Seg Neutrophils % Seg Neutrophils # VBG pH Sodium Potassium Chloride 107.7 H Carbon Dioxide 11 L Creatinine 0.5 L Glucose 186 H POC Glucose 178 H 215 H Lactic Acid Direct Bilirubin Total Protein Albumin Salicylates 09/25/17 09/25/17 06:07 06:47 WBC RBC Hgb Hct MCV Lymph % (Auto) Seg Neutrophils % Seg Neutrophils # VBG pH Sodium Potassium Chloride Carbon Dioxide Creatinine Glucose POC Glucose 169 H 163 H Lactic Acid Direct Bilirubin Total Protein Albumin Salicylates Chest x-ray: report reviewed, image reviewed CT scan - chest: report reviewed
--- NOTE | 2017-09-25 10:31 | Progress Note ---
Assessment and Plan Assessment and plan: A 32-year-old -[place] female with history of diabetes not taking her insulin for the last 2 days comes in for feeling weak and nauseous. vomited couple of times Some abdominal discomfort present. Admitted with DKA likely secondary to noncompliance of medication DKA Uncontrolled type 1 diabetes mellitus with hyperglycemia Severe metabolic acidosis likely secondary to DKA Peritoneal irritation Tobacco use disorder Plan * Continue supportive care in the ICU and DIC until gap closes and patient, transitioned to long-acting insulin therapy. * Consider insulin drip, continue half normal saline and D5 W metabolic sugar control wants about 250. * Per pateint did not have insurance to cover meds, will review any assistance available on discharg * Doubt an infectious process will likely recommend discontinuation of antibiotic therapy. * Taper off Nacrotics * CT Abd and chest xray unremarkable * Serial BMP * Counselling 15 mins provided on need to quit tobacco use * DVT and GI prophylaxis * Extensive counseling provided to the patient but compliant medication. The high probability of a clinically significant, sudden or life threatening deterioration of the [Endocrine] system(s) required my full and direct attention , intervention and personal management. The aggregate critical care time was [35 ] minutes. This time is in addition to time spent performing reported procedures but includes the following: [x] Data Review and interpretation [x] Patient assessment and monitoring of vital signs [x] Documentation [x] Medication orders and management History Interval history: Patient seen and examined in no acute distress. Hospitalist Physical - Physical exam Narrative exam: General appearance: Present: mild distress, well-nourished - EENT Eyes: Present: PERRL ENT: hearing intact, clear oral mucosa - Neck Neck: Present: supple, normal ROM - Respiratory Respiratory effort: normal Respiratory: bilateral: CTA - Cardiovascular Heart rate: 80 Rhythm: regular Heart Sounds: Present: S1 & S2. Absent: rub, click - Extremities Extremities: no ischemia, pulses intact, pulses symmetrical, No edema Peripheral Pulses: within normal limits - Abdominal General gastrointestinal: Present: soft, non-tender, non-distended, normal bowel sounds Female genitourinary: Present: normal - Rectal Rectal Exam: deferred - Integumentary Integumentary: Present: clear, warm, dry - Musculoskeletal Musculoskeletal: gait normal, strength equal bilaterally - Psychiatric Psychiatric: appropriate mood/affect, intact judgment & insight - Neurologic Neurologic: CNII-XII intact, moves all extremities - Allied Health Allied health notes reviewed: nursing, case management - Constitutional Vitals: Temp Pulse Resp BP Pulse Ox 98.0 F 107 H 15 123/68 100 09/25/17 08:00 09/25/17 09:05 09/25/17 08:00 09/24/17 22:58 09/25/17 08:00 General appearance: Present: mild distress, well-nourished Results - Labs CBC & Chem 7: 09/26/17 03:50 09/26/17 03:50 Labs: Laboratory Last Values WBC 13.8 K/mm3 (4.5-11.0) H 09/24/17 10:21 RBC 5.09 M/mm3 (3.65-5.03) H 09/24/17 10:21 Hgb 16.2 gm/dl (10.1-14.3) H 09/24/17 10:21 Hct 50.1 % (30.3-42.9) H 09/24/17 10:21 MCV 99 fl (79-97) H 09/24/17 10:21 MCH 32 pg (28-32) 09/24/17 10:21 MCHC 32 % (30-34) 09/24/17 10:21 RDW 13.7 % (13.2-15.2) 09/24/17 10:21 Plt Count 330 K/mm3 (140-440) 09/24/17 10:21 Lymph % (Auto) 12.8 % (13.4-35.0) L 09/24/17 10:21 [place] % (Auto) 2.9 % (0.0-7.3) 09/24/17 10:21 Eos % (Auto) 0.1 % (0.0-4.3) 09/24/17 10:21 Baso % (Auto) 0.5 % (0.0-1.8) 09/24/17 10:21 Lymph # 1.8 K/mm3 (1.2-5.4) 09/24/17 10:21 [place] # 0.4 K/mm3 (0.0-0.8) 09/24/17 10:21 Eos # 0.0 K/mm3 (0.0-0.4) 09/24/17 10:21 Baso # 0.1 K/mm3 (0.0-0.1) 09/24/17 10:21 Seg Neutrophils % 83.7 % (40.0-70.0) H 09/24/17 10:21 Seg Neutrophils # 11.6 K/mm3 (1.8-7.7) H 09/24/17 10:21 PT 14.5 Sec. (12.2-14.9) 09/24/17 11:45 INR 1.07 (0.87-1.13) 09/24/17 11:45 APTT 24.2 Sec. (24.2-36.6) 09/24/17 11:45 VBG pH 7.010 (7.320-7.420) L* 09/24/17 10:21 Sodium 138 mmol/L (137-145) 09/25/17 03:24 Potassium 3.9 mmol/L (3.6-5.0) 09/25/17 03:24 Chloride 107.7 mmol/L (98-107) H 09/25/17 03:24 Carbon Dioxide 11 mmol/L (22-30) L 09/25/17 03:24 Anion Gap 23 mmol/L 09/25/17 03:24 BUN 10 mg/dL (7-17) 09/25/17 03:24 Creatinine 0.5 mg/dL (0.7-1.2) L 09/25/17 03:24 Estimated GFR > 60 ml/min 09/25/17 03:24 BUN/Creatinine Ratio 20 % 09/25/17 03:24 Glucose 186 mg/dL (65-100) H 09/25/17 03:24 POC Glucose 147 (70-105) H 09/25/17 10:24 Lactic Acid 1.90 mmol/L (0.7-2.0) 09/25/17 03:24 Calcium 8.8 mg/dL (8.4-10.2) 09/25/17 03:24 Phosphorus 3.20 mg/dL (2.5-4.5) 09/24/17 11:45 Magnesium 2.10 mg/dL (1.7-2.3) 09/24/17 11:45 Total Bilirubin 0.80 mg/dL (0.1-1.2) 09/24/17 11:45 Direct Bilirubin 0.3 mg/dL (0-0.2) H 09/24/17 11:45 Indirect Bilirubin 0.5 mg/dL 09/24/17 11:45 AST 16 units/L (5-40) 09/24/17 11:45 ALT 18 units/L (7-56) 09/24/17 11:45 Alkaline Phosphatase 109 units/L (35-129) 09/24/17 11:45 Total Creatine Kinase 101 units/L (30-135) 09/24/17 11:45 CK-MB (CK-2) 2.2 ng/mL (0.0-4.0) 09/24/17 11:45 CK-MB (CK-2) Rel Index 2.1 (0-4) 09/24/17 11:45 Troponin T < 0.010 ng/mL (0.00-0.029) 09/24/17 11:45 Total Protein 8.7 g/dL (6.3-8.2) H 09/24/17 11:45 Albumin 5.1 g/dL (3.9-5) H 09/24/17 11:45 Albumin/Globulin Ratio 1.4 % 09/24/17 11:45 Lipase 15 units/L (13-60) 09/24/17 11:45 HCG, Qual Negative (Negative) 09/24/17 11:45 Urine Color Straw (Yellow) 09/24/17 11:33 Urine Turbidity Clear (Clear) 09/24/17 11:33 Urine pH 5.0 (5.0-7.0) 09/24/17 11:33 Ur Specific [place] 1.022 (1.003-1.030) 09/24/17 11:33 Urine Protein 100 mg/dl mg/dL (Negative) 09/24/17 11:33 Urine Glucose (UA) >=500 mg/dL (Negative) 09/24/17 11:33 Urine Ketones 80 mg/dL (Negative) 09/24/17 11:33 Urine Blood Sm (Negative) 09/24/17 11:33 Urine Nitrite Neg (Negative) 09/24/17 11:33 Urine Bilirubin Neg (Negative) 09/24/17 11:33 Urine Urobilinogen < 2.0 mg/dL (<2.0) 09/24/17 11:33 Ur Leukocyte Esterase Neg (Negative) 09/24/17 11:33 Urine WBC (Auto) 4.0 /HPF (0.0-6.0) 09/24/17 11:33 Urine RBC (Auto) 3.0 /HPF (0.0-6.0) 09/24/17 11:33 U Epithel Cells (Auto) 3.0 /HPF (0-13.0) 09/24/17 11:33 Urine Mucus Few /HPF 09/24/17 11:33 Urine HCG, Qual Negative (Negative) 09/24/17 11:33 Salicylates < 0.3 mg/dL (2.8-20.0) L 09/24/17 11:45 Urine Opiates Screen Presumptive negative 09/24/17 Unknown Urine Methadone Screen Presumptive negative 09/24/17 Unknown Acetaminophen < 15.0 ug/mL (10.0-30.0) 09/24/17 11:45 Ur Barbiturates Screen Presumptive negative 09/24/17 Unknown Ur Phencyclidine Scrn Presumptive negative 09/24/17 Unknown Ur Amphetamines Screen Presumptive negative 09/24/17 Unknown U Benzodiazepines Scrn Presumptive negative 09/24/17 Unknown Urine Cocaine Screen Presumptive negative 09/24/17 Unknown U Marijuana (THC) Screen Presumptive negative 09/24/17 Unknown Drugs of Abuse Note Disclamer 09/24/17 Unknown
[2017-09-25 11:23] LABS: BUN/Creatinine Ratio 22; Blood Urea Nitrogen 11 mg/dL (7-17); Calcium 8.9 mg/dL (8.4-10.2); Hemolysis Index 16
[2017-09-25] MEDS ORDERED: NACL 0.9% 1000 ML 1,000 ML IV ONE (12:00)
[2017-09-25 20:01] LABS: BUN/Creatinine Ratio 25; Blood Urea Nitrogen 10 mg/dL (7-17); Calcium 8.3 mg/dL (8.4-10.2); Hemolysis Index 40
[2017-09-25] MEDS: NACL 0.9% 1000 ML 1,000 ML IV SCH (21:55)
[2017-09-25] MEDS ORDERED: HumuLIN R SUB-Q SCH (22:00)
[2017-09-26] MEDS: SODIUM CHLORIDE FLUSH SYRINGE 10 ML IV SCH ×3 (01:42→22:28)
[2017-09-26 04:39] LABS: Hematocrit 39.4 % (30.3-42.9); Hemoglobin 13.6 gm/dl (10.1-14.3); Mean Corpuscular HGB Conc 35 % (30-34); Mean Corpuscular Hemoglobin 32 pg (28-32); Mean Corpuscular Volume 92 fl (79-97); Platelet Count 212 K/mm3 (140-440); Red Blood Count 4.27 M/mm3 (3.65-5.03); Red Cell Distribution Width 13.2 % (13.2-15.2)
[2017-09-26 04:56] LABS: BUN/Creatinine Ratio 23; Blood Urea Nitrogen 9 mg/dL (7-17); Calcium 8.5 mg/dL (8.4-10.2); Hemolysis Index 2
[2017-09-26] MEDS ORDERED: D50W (25GM) Syringe IV PRN (05:30)
[2017-09-26] MEDS ORDERED: NACL 0.9% 1000 ML 1,000 ML IV ONE (05:32)
[2017-09-26] MEDS: HumaLOG SUB-Q SCH ×4 (08:21→22:58)
[2017-09-26] MEDS: ZOFRAN IV PRN ×2 (08:21→13:56)
--- NOTE | 2017-09-26 09:31 | Progress Note ---
Assessment and Plan DKA. Currently improved and almost controlled. Responded to ongoing treatment , DKA protocol Metabolic/ lactate acidosis. Improved, lactate normal. AG improving Abdominal pain. HCG negative. No obvious UTI per U/A. Lipase is normal Tobacco abuse HX Recommendations Continue with Insulin drip , follow-up DKA protocol orders. K+ replacement Gentle 0.45/D5W hydration PO feedings, long support insulin once AG closes Once the above is completed, we'll consider transfer as per the ICU for additional management in the floor. Discussed with staff in detail. Critical care time was 31 minutes of [id number] evaluation and coordination of care Subjective Date of service: 09/26/17 Principal diagnosis: DKA,lactic acidosis Objective Vital Signs - 12hr 09/25/17 09/25/17 09/25/17 21:30 22:00 22:30 Temperature Pulse Rate 90 90 100 H Pulse Rate [ From Monitor] Respiratory 18 15 17 Rate Blood Pressure 109/75 105/68 105/68 O2 Sat by Pulse 100 100 100 Oximetry 09/25/17 09/25/17 09/26/17 23:00 23:31 00:00 Temperature 98.8 F Pulse Rate 93 H 100 H 96 H Pulse Rate [ From Monitor] Respiratory 21 16 16 Rate Blood Pressure 110/77 110/77 110/78 O2 Sat by Pulse 100 100 Oximetry 09/26/17 09/26/17 09/26/17 00:08 00:31 01:00 Temperature Pulse Rate 90 88 88 Pulse Rate [ 94 H From Monitor] Respiratory 14 15 15 Rate Blood Pressure 110/78 110/78 117/74 O2 Sat by Pulse 100 100 100 Oximetry 09/26/17 09/26/17 09/26/17 01:30 02:00 02:30 Temperature Pulse Rate 98 H 94 H 79 Pulse Rate [ From Monitor] Respiratory 17 15 14 Rate Blood Pressure 117/74 117/74 117/74 O2 Sat by Pulse 100 100 100 Oximetry 09/26/17 09/26/17 09/26/17 03:00 03:30 04:00 Temperature 98.6 F Pulse Rate 83 91 H 90 Pulse Rate [ From Monitor] Respiratory 14 17 14 Rate Blood Pressure 107/71 107/71 103/65 O2 Sat by Pulse 100 100 Oximetry 09/26/17 09/26/17 09/26/17 04:30 05:00 05:30 Temperature Pulse Rate 77 95 H 87 Pulse Rate [ From Monitor] Respiratory 14 14 15 Rate Blood Pressure 103/65 110/70 110/70 O2 Sat by Pulse 100 100 100 Oximetry 09/26/17 09/26/17 09/26/17 06:00 06:30 07:00 Temperature Pulse Rate 81 83 94 H Pulse Rate [ From Monitor] Respiratory 14 13 14 Rate Blood Pressure 110/75 110/75 106/72 O2 Sat by Pulse 100 100 Oximetry 09/26/17 09/26/17 09/26/17 07:30 08:00 08:30 Temperature 98.7 F Pulse Rate 79 79 81 Pulse Rate [ From Monitor] Respiratory 14 15 13 Rate Blood Pressure 106/72 102/67 102/67 O2 Sat by Pulse 100 100 Oximetry Constitutional: alert, lethargic Eyes: non-icteric ENT: oropharynx dry Neck: supple, no JVD Ascultation: Bilateral: clear Cardiovascular: regular rate and rhythm Gastrointestinal: normoactive bowel sounds, non-distended Integumentary: normal Extremities: no cyanosis, no edema Neurologic: non-focal exam, pupils equal and round, CN II-XII normal, motor strength normal and, other (partially cooperative, avoids talking herself) Psychiatric: other (evasive) CBC and BMP: 09/26/17 03:50 09/26/17 03:50 ABG, PT/INR, D-dimer: PT/INR, D-dimer PT 14.5 Sec. (12.2-14.9) 09/24/17 11:45 INR 1.07 (0.87-1.13) 09/24/17 11:45 Abnormal lab findings: Abnormal Labs 09/24/17 09/24/17 09/24/17 10:21 10:21 10:21 WBC 13.8 H RBC 5.09 H Hgb 16.2 H Hct 50.1 H MCV 99 H MCHC Lymph % (Auto) 12.8 L Seg Neutrophils % 83.7 H Seg Neutrophils # 11.6 H VBG pH 7.010 L* Sodium 132 L Potassium Chloride 96.4 L Carbon Dioxide 9 L* Creatinine Glucose 317 H POC Glucose Lactic Acid Calcium Direct Bilirubin Total Protein Albumin Salicylates 09/24/17 09/24/17 09/24/17 11:29 11:45 11:45 WBC RBC Hgb Hct MCV MCHC Lymph % (Auto) Seg Neutrophils % Seg Neutrophils # VBG pH Sodium 133 L Potassium Chloride 95.5 L Carbon Dioxide 6 L* Creatinine Glucose 326 H POC Glucose 269 H Lactic Acid Calcium Direct Bilirubin 0.3 H Total Protein 8.7 H Albumin 5.1 H Salicylates 09/24/17 09/24/17 09/24/17 11:45 11:50 13:19 WBC RBC Hgb Hct MCV MCHC Lymph % (Auto) Seg Neutrophils % Seg Neutrophils # VBG pH Sodium 135 L Potassium Chloride Carbon Dioxide 4 L* Creatinine 0.6 L Glucose 278 H POC Glucose Lactic Acid 2.60 H* Calcium Direct Bilirubin Total Protein Albumin Salicylates < 0.3 L 09/24/17 09/24/17 09/24/17 13:19 15:13 15:13 WBC RBC Hgb Hct MCV MCHC Lymph % (Auto) Seg Neutrophils % Seg Neutrophils # VBG pH Sodium Potassium 5.1 H Chloride Carbon Dioxide 3 L* Creatinine 0.6 L Glucose 245 H POC Glucose Lactic Acid 2.30 H* 2.50 H* Calcium Direct Bilirubin Total Protein Albumin Salicylates 09/24/17 09/24/17 09/24/17 17:34 19:10 20:09 WBC RBC Hgb Hct MCV MCHC Lymph % (Auto) Seg Neutrophils % Seg Neutrophils # VBG pH Sodium Potassium Chloride Carbon Dioxide 6 L* Creatinine 0.6 L Glucose 198 H POC Glucose 237 H 215 H Lactic Acid Calcium Direct Bilirubin Total Protein Albumin Salicylates 09/24/17 09/24/17 09/24/17 20:09 20:14 21:22 WBC RBC Hgb Hct MCV MCHC Lymph % (Auto) Seg Neutrophils % Seg Neutrophils # VBG pH Sodium Potassium Chloride Carbon Dioxide Creatinine Glucose POC Glucose 189 H 176 H Lactic Acid 2.10 H* Calcium Direct Bilirubin Total Protein Albumin Salicylates 09/24/17 09/24/17 09/24/17 22:19 23:10 23:10 WBC RBC Hgb Hct MCV MCHC Lymph % (Auto) Seg Neutrophils % Seg Neutrophils # VBG pH Sodium Potassium Chloride Carbon Dioxide 6 L* Creatinine 0.6 L Glucose 207 H POC Glucose 187 H Lactic Acid 2.60 H* Calcium Direct Bilirubin Total Protein Albumin Salicylates 09/24/17 09/25/17 09/25/17 23:25 00:15 00:54 WBC RBC Hgb Hct MCV MCHC Lymph % (Auto) Seg Neutrophils % Seg Neutrophils # VBG pH Sodium Potassium Chloride Carbon Dioxide Creatinine Glucose POC Glucose 212 H 219 H 223 H Lactic Acid Calcium Direct Bilirubin Total Protein Albumin Salicylates 09/25/17 09/25/17 09/25/17 02:12 03:24 03:29 WBC RBC Hgb Hct MCV MCHC Lymph % (Auto) Seg Neutrophils % Seg Neutrophils # VBG pH Sodium Potassium Chloride 107.7 H Carbon Dioxide 11 L Creatinine 0.5 L Glucose 186 H POC Glucose 233 H 185 H Lactic Acid Calcium Direct Bilirubin Total Protein Albumin Salicylates 09/25/17 09/25/17 09/25/17 04:01 05:13 06:07 WBC RBC Hgb Hct MCV MCHC Lymph % (Auto) Seg Neutrophils % Seg Neutrophils # VBG pH Sodium Potassium Chloride Carbon Dioxide Creatinine Glucose POC Glucose 178 H 215 H 169 H Lactic Acid Calcium Direct Bilirubin Total Protein Albumin Salicylates 09/25/17 09/25/17 09/25/17 06:47 09:07 10:24 WBC RBC Hgb Hct MCV MCHC Lymph % (Auto) Seg Neutrophils % Seg Neutrophils # VBG pH Sodium Potassium Chloride Carbon Dioxide Creatinine Glucose POC Glucose 163 H 138 H 147 H Lactic Acid Calcium Direct Bilirubin Total Protein Albumin Salicylates 09/25/17 09/25/17 09/25/17 10:53 12:53 14:21 WBC RBC Hgb Hct MCV MCHC Lymph % (Auto) Seg Neutrophils % Seg Neutrophils # VBG pH Sodium 135 L Potassium Chloride Carbon Dioxide 13 L Creatinine 0.5 L Glucose 146 H POC Glucose 147 H 139 H Lactic Acid Calcium Direct Bilirubin Total Protein Albumin Salicylates 09/25/17 09/25/17 09/25/17 15:04 18:54 19:18 WBC RBC Hgb Hct MCV MCHC Lymph % (Auto) Seg Neutrophils % Seg Neutrophils # VBG pH Sodium 133 L Potassium Chloride Carbon Dioxide 15 L Creatinine 0.4 L Glucose 212 H POC Glucose 233 H 201 H Lactic Acid Calcium 8.3 L Direct Bilirubin Total Protein Albumin Salicylates 09/25/17 09/26/17 09/26/17 20:29 03:50 03:50 WBC 12.1 H RBC Hgb Hct MCV MCHC 35 H Lymph % (Auto) Seg Neutrophils % Seg Neutrophils # VBG pH Sodium 135 L Potassium 3.2 L Chloride Carbon Dioxide 18 L Creatinine 0.4 L Glucose 194 H POC Glucose 237 H Lactic Acid Calcium Direct Bilirubin Total Protein Albumin Salicylates 09/26/17 07:25 WBC RBC Hgb Hct MCV MCHC Lymph % (Auto) Seg Neutrophils % Seg Neutrophils # VBG pH Sodium Potassium Chloride Carbon Dioxide Creatinine Glucose POC Glucose 180 H Lactic Acid Calcium Direct Bilirubin Total Protein Albumin Salicylates
[2017-09-26] MEDS: REGLAN IV PRN (15:49)
[2017-09-26] MEDS ORDERED: HALDOL IM ONE (17:00)
[2017-09-26 19:49] LABS: BUN/Creatinine Ratio 20; Blood Urea Nitrogen 8 mg/dL (7-17); Calcium 8.4 mg/dL (8.4-10.2); Hemolysis Index 5
--- NOTE | 2017-09-26 22:23 | Progress Note ---
Assessment and Plan Assessment and plan: A 32-year-old -[place] female with history of diabetes not taking her insulin for the last 2 days comes in for feeling weak and nauseous. vomited couple of times Some abdominal discomfort present. Admitted with DKA likely secondary to noncompliance of medication DKA Uncontrolled type 1 diabetes mellitus with hyperglycemia Severe metabolic acidosis likely secondary to DKA Peritoneal irritation Tobacco use disorder Hypokalemia Plan * Continue supportive care * Transition to long acting insulin and transfer to [facility] * Diabetic diet * Per patient did not have insurance to cover meds, will review any assistance available on discharge * Doubt an infectious process will likely recommend discontinuation of antibiotic therapy. * Taper off Nacrotics * CT Abd and chest xray unremarkable * Serial BMP * Counselling 15 mins provided on need to quit tobacco use * DVT and GI prophylaxis * Extensive counseling provided to the patient but compliant medication. * Transfer to medical floor History Interval history: Patient seen and examined in no acute distress. Doing well this am, reports still intermittent nausea with vomiiting and reports of retained Brianna IUD Hospitalist Physical - Physical exam Narrative exam: General appearance: Present: mild distress, well-nourished - EENT Eyes: Present: PERRL ENT: hearing intact, clear oral mucosa - Neck Neck: Present: supple, normal ROM - Respiratory Respiratory effort: normal Respiratory: bilateral: CTA - Cardiovascular Heart rate: 80 Rhythm: regular Heart Sounds: Present: S1 & S2. Absent: rub, click - Extremities Extremities: no ischemia, pulses intact, pulses symmetrical, No edema Peripheral Pulses: within normal limits - Abdominal General gastrointestinal: Present: soft, non-tender, non-distended, normal bowel sounds Female genitourinary: Present: normal - Rectal Rectal Exam: deferred - Integumentary Integumentary: Present: clear, warm, dry - Musculoskeletal Musculoskeletal: gait normal, strength equal bilaterally - Psychiatric Psychiatric: appropriate mood/affect, intact judgment & insight - Neurologic Neurologic: CNII-XII intact, moves all extremities - Allied Health Allied health notes reviewed: nursing, case management - Constitutional Vitals: Temp Pulse Resp BP Pulse Ox 98.6 F 64 18 102/72 100 09/26/17 19:28 09/26/17 19:28 09/26/17 19:28 09/26/17 19:28 09/26/17 19:28 General appearance: Present: mild distress, well-nourished Results - Labs CBC & Chem 7: 09/26/17 03:50 09/27/17 03:30 Labs: Laboratory Last Values WBC 12.1 K/mm3 (4.5-11.0) H 09/26/17 03:50 RBC 4.27 M/mm3 (3.65-5.03) 09/26/17 03:50 Hgb 13.6 gm/dl (10.1-14.3) 09/26/17 03:50 Hct 39.4 % (30.3-42.9) D 09/26/17 03:50 MCV 92 fl (79-97) 09/26/17 03:50 MCH 32 pg (28-32) 09/26/17 03:50 MCHC 35 % (30-34) H 09/26/17 03:50 RDW 13.2 % (13.2-15.2) 09/26/17 03:50 Plt Count 212 K/mm3 (140-440) 09/26/17 03:50 Lymph % (Auto) 12.8 % (13.4-35.0) L 09/24/17 10:21 [place] % (Auto) 2.9 % (0.0-7.3) 09/24/17 10:21 Eos % (Auto) 0.1 % (0.0-4.3) 09/24/17 10:21 Baso % (Auto) 0.5 % (0.0-1.8) 09/24/17 10:21 Lymph # 1.8 K/mm3 (1.2-5.4) 09/24/17 10:21 [place] # 0.4 K/mm3 (0.0-0.8) 09/24/17 10:21 Eos # 0.0 K/mm3 (0.0-0.4) 09/24/17 10:21 Baso # 0.1 K/mm3 (0.0-0.1) 09/24/17 10:21 Seg Neutrophils % 83.7 % (40.0-70.0) H 09/24/17 10:21 Seg Neutrophils # 11.6 K/mm3 (1.8-7.7) H 09/24/17 10:21 PT 14.5 Sec. (12.2-14.9) 09/24/17 11:45 INR 1.07 (0.87-1.13) 09/24/17 11:45 APTT 24.2 Sec. (24.2-36.6) 09/24/17 11:45 VBG pH 7.010 (7.320-7.420) L* 09/24/17 10:21 Sodium 135 mmol/L (137-145) L 09/26/17 19:13 Potassium 3.2 mmol/L (3.6-5.0) L 09/26/17 19:13 Chloride 98.2 mmol/L (98-107) 09/26/17 19:13 Carbon Dioxide 20 mmol/L (22-30) L 09/26/17 19:13 Anion Gap 20 mmol/L 09/26/17 19:13 BUN 8 mg/dL (7-17) 09/26/17 19:13 Creatinine 0.4 mg/dL (0.7-1.2) L 09/26/17 19:13 Estimated GFR > 60 ml/min 09/26/17 19:13 BUN/Creatinine Ratio 20 % 09/26/17 19:13 Glucose 165 mg/dL (65-100) H 09/26/17 19:13 POC Glucose 145 (70-105) H 09/26/17 21:43 Lactic Acid 1.90 mmol/L (0.7-2.0) 09/25/17 03:24 Calcium 8.4 mg/dL (8.4-10.2) 09/26/17 19:13 Phosphorus 3.20 mg/dL (2.5-4.5) 09/24/17 11:45 Magnesium 2.10 mg/dL (1.7-2.3) 09/24/17 11:45 Total Bilirubin 0.80 mg/dL (0.1-1.2) 09/24/17 11:45 Direct Bilirubin 0.3 mg/dL (0-0.2) H 09/24/17 11:45 Indirect Bilirubin 0.5 mg/dL 09/24/17 11:45 AST 16 units/L (5-40) 09/24/17 11:45 ALT 18 units/L (7-56) 09/24/17 11:45 Alkaline Phosphatase 109 units/L (35-129) 09/24/17 11:45 Total Creatine Kinase 101 units/L (30-135) 09/24/17 11:45 CK-MB (CK-2) 2.2 ng/mL (0.0-4.0) 09/24/17 11:45 CK-MB (CK-2) Rel Index 2.1 (0-4) 09/24/17 11:45 Troponin T < 0.010 ng/mL (0.00-0.029) 09/24/17 11:45 Total Protein 8.7 g/dL (6.3-8.2) H 09/24/17 11:45 Albumin 5.1 g/dL (3.9-5) H 09/24/17 11:45 Albumin/Globulin Ratio 1.4 % 09/24/17 11:45 Lipase 15 units/L (13-60) 09/24/17 11:45 HCG, Qual Negative (Negative) 09/24/17 11:45 Urine Color Straw (Yellow) 09/24/17 11:33 Urine Turbidity Clear (Clear) 09/24/17 11:33 Urine pH 5.0 (5.0-7.0) 09/24/17 11:33 Ur Specific [place] 1.022 (1.003-1.030) 09/24/17 11:33 Urine Protein 100 mg/dl mg/dL (Negative) 09/24/17 11:33 Urine Glucose (UA) >=500 mg/dL (Negative) 09/24/17 11:33 Urine Ketones 80 mg/dL (Negative) 09/24/17 11:33 Urine Blood Sm (Negative) 09/24/17 11:33 Urine Nitrite Neg (Negative) 09/24/17 11:33 Urine Bilirubin Neg (Negative) 09/24/17 11:33 Urine Urobilinogen < 2.0 mg/dL (<2.0) 09/24/17 11:33 Ur Leukocyte Esterase Neg (Negative) 09/24/17 11:33 Urine WBC (Auto) 4.0 /HPF (0.0-6.0) 09/24/17 11:33 Urine RBC (Auto) 3.0 /HPF (0.0-6.0) 09/24/17 11:33 U Epithel Cells (Auto) 3.0 /HPF (0-13.0) 09/24/17 11:33 Urine Mucus Few /HPF 09/24/17 11:33 Urine HCG, Qual Negative (Negative) 09/24/17 11:33 Salicylates < 0.3 mg/dL (2.8-20.0) L 09/24/17 11:45 Urine Opiates Screen Presumptive negative 09/24/17 Unknown Urine Methadone Screen Presumptive negative 09/24/17 Unknown Acetaminophen < 15.0 ug/mL (10.0-30.0) 09/24/17 11:45 Ur Barbiturates Screen Presumptive negative 09/24/17 Unknown Ur Phencyclidine Scrn Presumptive negative 09/24/17 Unknown Ur Amphetamines Screen Presumptive negative 09/24/17 Unknown U Benzodiazepines Scrn Presumptive negative 09/24/17 Unknown Urine Cocaine Screen Presumptive negative 09/24/17 Unknown U Marijuana (THC) Screen Presumptive negative 09/24/17 Unknown Drugs of Abuse Note Disclamer 09/24/17 Unknown
[2017-09-27 04:03] LABS: BUN/Creatinine Ratio 23; Blood Urea Nitrogen 7 mg/dL (7-17); Calcium 8.1 mg/dL (8.4-10.2); Hemolysis Index 16
[2017-09-27] MEDS: NACL 0.9% 1000 ML 1,000 ML IV SCH (06:27)
[2017-09-27] MEDS: HumaLOG SUB-Q SCH ×3 (07:30→16:04)
[2017-09-27] MEDS: REGLAN IV PRN ×2 (09:12→16:02)
[2017-09-27] MEDS: SODIUM CHLORIDE FLUSH SYRINGE 10 ML IV SCH (09:20)
--- NOTE | 2017-09-27 11:00 | Discharge Summary ---
Providers - Providers Date of Admission: 09/24/17 13:02 Attending physician: ELDON VÁZQUEZ MD 09/24/17 11:12 Consult to Case Management [CONS] Routine Services Needed at Discharge: Other Notified:: kari 09/24/17 13:04 Consult to Physician [CONS] Urgent Consulting Provider: LIZABETH COTTON Reason For Exam: ICU admission Notified:: page 09/24/17 18:45 Consult to Dietitian/Nutrition [CONS] Routine Physician Instructions: Reason For Exam: Reason for Consult: Diet education 09/25/17 21:10 Consult to Dietitian/Nutrition [CONS] Routine Physician Instructions: Reason For Exam: Reason for Consult: Diet education Primary care physician: [employer] Hospitalization Condition: Stable Hospital course: A 32-year-old -[place] female with history of diabetes not taking her insulin for the last 2 days comes in for feeling weak and nauseous. vomited couple of times Some abdominal discomfort present. Admitted with DKA likely secondary to noncompliance of medication DKA Uncontrolled type 1 diabetes mellitus with hyperglycemia Severe metabolic acidosis likely secondary to DKA Peritoneal irritation Tobacco use disorder Hypokalemia Plan * Continue supportive care * Transition to long acting insulin and transfer to [facility] * Diabetic diet * Per patient did not have insurance to cover meds, will review any assistance available on discharge * Doubt an infectious process will likely recommend discontinuation of antibiotic therapy. * Taper off Nacrotics * CT Abd and chest xray unremarkable * Serial BMP * Counselling 15 mins provided on need to quit tobacco use * DVT and GI prophylaxis * Extensive counseling provided to the patient but compliant medication. * Transfer to medical floor Disposition: TO HOME OR SELFCARE Time spent for discharge: 35 mins Core Measure Documentation - Palliative Care Palliative Care/ Comfort Measures: Not Applicable - Core Measures Any of the following diagnoses?: none - VTE Discharge Requirements Deep Vein Thrombosis/Pulmonary Embolism Present on Admission: Yes Exam - Physical Exam Narrative exam: General appearance: Present: mild distress, well-nourished - EENT Eyes: Present: PERRL ENT: hearing intact, clear oral mucosa - Neck Neck: Present: supple, normal ROM - Respiratory Respiratory effort: normal Respiratory: bilateral: CTA - Cardiovascular Heart rate: 80 Rhythm: regular Heart Sounds: Present: S1 & S2. Absent: rub, click - Extremities Extremities: no ischemia, pulses intact, pulses symmetrical, No edema Peripheral Pulses: within normal limits - Abdominal General gastrointestinal: Present: soft, non-tender, non-distended, normal bowel sounds Female genitourinary: Present: normal - Rectal Rectal Exam: deferred - Integumentary Integumentary: Present: clear, warm, dry - Musculoskeletal Musculoskeletal: gait normal, strength equal bilaterally - Psychiatric Psychiatric: appropriate mood/affect, intact judgment & insight - Neurologic Neurologic: CNII-XII intact, moves all extremities - Allied Health Allied health notes reviewed: nursing, case management - Constitutional Vitals: Temp Pulse Resp BP Pulse Ox 98.5 F 93 H 18 94/61 98 09/27/17 08:05 09/27/17 08:05 09/27/17 08:05 09/27/17 08:05 09/27/17 08:05 Plan Activity: advance as tolerated, fall precautions Diet: low cholesterol Special Instructions: record daily weights, record daily BP diary, record blood sugar diary Follow up with: PRIMARY CAREMD [Primary Care Provider] - 3-5 Days SHERRIE JUNIOR MD [Staff Physician] - 7 Days Forms: Accompanied Note Prescriptions: Insulin NPH/Regular [NovoLIN 70/30] 40 unit SUB-Q BIDDIAB #1 units Ondansetron [Zofran Odt] 4 mg PO Q4-6H PRN #30 tab.rapdis PRN Reason: Nausea
--- NOTE | 2017-09-27 17:29 | Event Note ---
Date: 09/27/17 Already outside the ICU with possible impending discharge. We'll sign off unless needed
[2017-09-27] MEDS ORDERED: REGLAN IV PRN (22:14)
--- NOTE | 2017-09-27 22:19 | Progress Note ---
Assessment and Plan Assessment and plan: A 32-year-old -[place] female with history of diabetes not taking her insulin for the last 2 days comes in for feeling weak and nauseous. vomited couple of times Some abdominal discomfort present. Admitted with DKA likely secondary to noncompliance of medication DKA Uncontrolled type 1 diabetes mellitus with hyperglycemia Severe metabolic acidosis likely secondary to DKA possible Diabetic Gastroparesis Peritoneal irritation Tobacco use disorder Hypokalemia Plan * Continue supportive care * Continue long acting insulin * Gastric Emptying scan * Diabetic diet * Per patient did not have insurance to cover meds, will review any assistance available on discharge * No new fever * Doubt an infectious process will likely recommend discontinuation of antibiotic therapy. * Taper off Nacrotics * CT Abd and chest xray unremarkable * Serial BMP * Counselling 15 mins provided on need to quit tobacco use * DVT and GI prophylaxis * Extensive counseling provided to the patient but compliant medication. History Interval history: Patient seen and examined in no acute distress. still with nasuea and vomiting, was pending discharge then began vomiting again. Hospitalist Physical - Physical exam Narrative exam: General appearance: Present: athergic, well-nourished - EENT Eyes: Present: PERRL ENT: hearing intact, clear oral mucosa - Neck Neck: Present: supple, normal ROM - Respiratory Respiratory effort: normal Respiratory: bilateral: CTA - Cardiovascular Heart rate: 80 Rhythm: regular Heart Sounds: Present: S1 & S2. Absent: rub, click - Extremities Extremities: no ischemia, pulses intact, pulses symmetrical, No edema Peripheral Pulses: within normal limits - Abdominal General gastrointestinal: Present: soft, non-tender, non-distended, normal bowel sounds Female genitourinary: Present: normal - Rectal Rectal Exam: deferred - Integumentary Integumentary: Present: clear, warm, dry - Musculoskeletal Musculoskeletal: gait normal, strength equal bilaterally - Psychiatric Psychiatric: appropriate mood/affect, intact judgment & insight - Neurologic Neurologic: CNII-XII intact, moves all extremities - Allied Health Allied health notes reviewed: nursing, case management - Constitutional Vitals: Temp Pulse Resp BP Pulse Ox 98.9 F 77 18 133/83 100 09/27/17 15:16 09/27/17 15:16 09/27/17 15:16 09/27/17 15:16 09/27/17 15:16 General appearance: Present: mild distress, well-nourished Results - Labs CBC & Chem 7: 09/26/17 03:50 09/27/17 03:30 Labs: Laboratory Last Values WBC 12.1 K/mm3 (4.5-11.0) H 09/26/17 03:50 RBC 4.27 M/mm3 (3.65-5.03) 09/26/17 03:50 Hgb 13.6 gm/dl (10.1-14.3) 09/26/17 03:50 Hct 39.4 % (30.3-42.9) D 09/26/17 03:50 MCV 92 fl (79-97) 09/26/17 03:50 MCH 32 pg (28-32) 09/26/17 03:50 MCHC 35 % (30-34) H 09/26/17 03:50 RDW 13.2 % (13.2-15.2) 09/26/17 03:50 Plt Count 212 K/mm3 (140-440) 09/26/17 03:50 Lymph % (Auto) 12.8 % (13.4-35.0) L 09/24/17 10:21 [place] % (Auto) 2.9 % (0.0-7.3) 09/24/17 10:21 Eos % (Auto) 0.1 % (0.0-4.3) 09/24/17 10:21 Baso % (Auto) 0.5 % (0.0-1.8) 09/24/17 10:21 Lymph # 1.8 K/mm3 (1.2-5.4) 09/24/17 10:21 [place] # 0.4 K/mm3 (0.0-0.8) 09/24/17 10:21 Eos # 0.0 K/mm3 (0.0-0.4) 09/24/17 10:21 Baso # 0.1 K/mm3 (0.0-0.1) 09/24/17 10:21 Seg Neutrophils % 83.7 % (40.0-70.0) H 09/24/17 10:21 Seg Neutrophils # 11.6 K/mm3 (1.8-7.7) H 09/24/17 10:21 PT 14.5 Sec. (12.2-14.9) 09/24/17 11:45 INR 1.07 (0.87-1.13) 09/24/17 11:45 APTT 24.2 Sec. (24.2-36.6) 09/24/17 11:45 VBG pH 7.010 (7.320-7.420) L* 09/24/17 10:21 Sodium 137 mmol/L (137-145) 09/27/17 03:30 Potassium 3.2 mmol/L (3.6-5.0) L 09/27/17 03:30 Chloride 98.9 mmol/L (98-107) 09/27/17 03:30 Carbon Dioxide 19 mmol/L (22-30) L 09/27/17 03:30 Anion Gap 22 mmol/L 09/27/17 03:30 BUN 7 mg/dL (7-17) 09/27/17 03:30 Creatinine 0.3 mg/dL (0.7-1.2) L 09/27/17 03:30 Estimated GFR > 60 ml/min 09/27/17 03:30 BUN/Creatinine Ratio 23 % 09/27/17 03:30 Glucose 232 mg/dL (65-100) H 09/27/17 03:30 POC Glucose 265 (70-105) H 09/27/17 06:26 Lactic Acid 1.90 mmol/L (0.7-2.0) 09/25/17 03:24 Calcium 8.1 mg/dL (8.4-10.2) L 09/27/17 03:30 Phosphorus 3.20 mg/dL (2.5-4.5) 09/24/17 11:45 Magnesium 2.10 mg/dL (1.7-2.3) 09/24/17 11:45 Total Bilirubin 0.80 mg/dL (0.1-1.2) 09/24/17 11:45 Direct Bilirubin 0.3 mg/dL (0-0.2) H 09/24/17 11:45 Indirect Bilirubin 0.5 mg/dL 09/24/17 11:45 AST 16 units/L (5-40) 09/24/17 11:45 ALT 18 units/L (7-56) 09/24/17 11:45 Alkaline Phosphatase 109 units/L (35-129) 09/24/17 11:45 Total Creatine Kinase 101 units/L (30-135) 09/24/17 11:45 CK-MB (CK-2) 2.2 ng/mL (0.0-4.0) 09/24/17 11:45 CK-MB (CK-2) Rel Index 2.1 (0-4) 09/24/17 11:45 Troponin T < 0.010 ng/mL (0.00-0.029) 09/24/17 11:45 Total Protein 8.7 g/dL (6.3-8.2) H 09/24/17 11:45 Albumin 5.1 g/dL (3.9-5) H 09/24/17 11:45 Albumin/Globulin Ratio 1.4 % 09/24/17 11:45 Lipase 15 units/L (13-60) 09/24/17 11:45 HCG, Qual Negative (Negative) 09/24/17 11:45 Urine Color Straw (Yellow) 09/24/17 11:33 Urine Turbidity Clear (Clear) 09/24/17 11:33 Urine pH 5.0 (5.0-7.0) 09/24/17 11:33 Ur Specific [place] 1.022 (1.003-1.030) 09/24/17 11:33 Urine Protein 100 mg/dl mg/dL (Negative) 09/24/17 11:33 Urine Glucose (UA) >=500 mg/dL (Negative) 09/24/17 11:33 Urine Ketones 80 mg/dL (Negative) 09/24/17 11:33 Urine Blood Sm (Negative) 09/24/17 11:33 Urine Nitrite Neg (Negative) 09/24/17 11:33 Urine Bilirubin Neg (Negative) 09/24/17 11:33 Urine Urobilinogen < 2.0 mg/dL (<2.0) 09/24/17 11:33 Ur Leukocyte Esterase Neg (Negative) 09/24/17 11:33 Urine WBC (Auto) 4.0 /HPF (0.0-6.0) 09/24/17 11:33 Urine RBC (Auto) 3.0 /HPF (0.0-6.0) 09/24/17 11:33 U Epithel Cells (Auto) 3.0 /HPF (0-13.0) 09/24/17 11:33 Urine Mucus Few /HPF 09/24/17 11:33 Urine HCG, Qual Negative (Negative) 09/24/17 11:33 Salicylates < 0.3 mg/dL (2.8-20.0) L 09/24/17 11:45 Urine Opiates Screen Presumptive negative 09/24/17 Unknown Urine Methadone Screen Presumptive negative 09/24/17 Unknown Acetaminophen < 15.0 ug/mL (10.0-30.0) 09/24/17 11:45 Ur Barbiturates Screen Presumptive negative 09/24/17 Unknown Ur Phencyclidine Scrn Presumptive negative 09/24/17 Unknown Ur Amphetamines Screen Presumptive negative 09/24/17 Unknown U Benzodiazepines Scrn Presumptive negative 09/24/17 Unknown Urine Cocaine Screen Presumptive negative 09/24/17 Unknown U Marijuana (THC) Screen Presumptive negative 09/24/17 Unknown Drugs of Abuse Note Disclamer 09/24/17 Unknown
[2017-09-28] MEDS: HumaLOG SUB-Q SCH ×5 (00:29→22:29)
[2017-09-28] MEDS: NACL 0.9% 1000 ML 1,000 ML IV SCH ×2 (00:33→16:31)
[2017-09-28] MEDS: SODIUM CHLORIDE FLUSH SYRINGE 10 ML IV SCH ×3 (00:35→22:31)
[2017-09-28 05:28] LABS: BUN/Creatinine Ratio 25; Blood Urea Nitrogen 5 mg/dL (7-17); Calcium 8.3 mg/dL (8.4-10.2); Hemolysis Index 13
[2017-09-28] MEDS: ZOFRAN IV PRN ×3 (06:21→19:23)
[2017-09-28] MEDS ORDERED: KCL 10MEQ/100ML 10 MEQ/100 ML BAG IV SCH ×3 (07:00→16:00)
[2017-09-28] MEDS ORDERED: KCL 20 MEQ in NACL 0.9% 250ML 250 ML IV ONE ×2 (07:00→15:30)
[2017-09-28] MEDS ORDERED: MAGNESIUM SULFATE IV ONE (07:45)
[2017-09-28] MEDS ORDERED: DILAUDID IV PRN (07:52)
--- NOTE | 2017-09-28 07:53 | Progress Note ---
Assessment and Plan Assessment and plan: A 32-year-old -[place] Citizen female with history of diabetes not taking her insulin for the last 2 days comes in for feeling weak and nauseous. vomited couple of times Some abdominal discomfort present. Admitted with DKA likely secondary to noncompliance of medication DKA Uncontrolled type 1 diabetes mellitus with hyperglycemia Severe metabolic acidosis likely secondary to DKA Hypokalemia-severe possible Diabetic Gastroparesis Peritoneal irritation Tobacco use disorder Hypokalemia Plan * Continue supportive care. Patient still a persistent nausea and vomiting we' ll hold discharge and perform gastric emptying scan * Continue long acting insulin * Will likely need adjustment of 70/30 that was sent to the pharmacy yesterday in anticipation of discharge. * Replace potassium and magnesium and recheck in am * Diabetic diet * Per patient did not have insurance to cover meds, will review any assistance available on discharge * Still remains afebrile * Taper off Nacrotics * CT Abd and chest xray unremarkable * Serial BMP * Counselling 15 mins provided on need to quit tobacco use * DVT and GI prophylaxis * Extensive counseling provided to the patient but compliant medication. * Discussed with nursing staff. History Interval history: Patient seen and examined in no acute distress. still with nasuea and vomiting, was pending discharge then began vomiting again. Hospitalist Physical - Physical exam Narrative exam: - Physical exam Narrative exam: General appearance: Present: athergic, well-nourished - EENT Eyes: Present: PERRL ENT: hearing intact, clear oral mucosa - Neck Neck: Present: supple, normal ROM - Respiratory Respiratory effort: normal Respiratory: bilateral: CTA - Cardiovascular Heart rate: 80 Rhythm: regular Heart Sounds: Present: S1 & S2. Absent: rub, click - Extremities Extremities: no ischemia, pulses intact, pulses symmetrical, No edema Peripheral Pulses: within normal limits - Abdominal General gastrointestinal: Present: soft, non-tender, non-distended, normal bowel sounds Female genitourinary: Present: normal - Rectal Rectal Exam: deferred - Integumentary Integumentary: Present: clear, warm, dry - Musculoskeletal Musculoskeletal: gait normal, strength equal bilaterally - Psychiatric Psychiatric: appropriate mood/affect, intact judgment & insight - Neurologic Neurologic: CNII-XII intact, moves all extremities - Allied Health Allied health notes reviewed: nursing, case management - Constitutional Vitals: Temp Pulse Resp BP Pulse Ox 98.9 F 80 20 133/83 100 09/27/17 15:16 09/27/17 22:00 09/27/17 22:00 09/27/17 15:16 09/27/17 15:16 General appearance: Present: mild distress, well-nourished Results - Labs CBC & Chem 7: 09/26/17 03:50 09/28/17 04:25 Labs: Laboratory Last Values WBC 12.1 K/mm3 (4.5-11.0) H 09/26/17 03:50 RBC 4.27 M/mm3 (3.65-5.03) 09/26/17 03:50 Hgb 13.6 gm/dl (10.1-14.3) 09/26/17 03:50 Hct 39.4 % (30.3-42.9) D 09/26/17 03:50 MCV 92 fl (79-97) 09/26/17 03:50 MCH 32 pg (28-32) 09/26/17 03:50 MCHC 35 % (30-34) H 09/26/17 03:50 RDW 13.2 % (13.2-15.2) 09/26/17 03:50 Plt Count 212 K/mm3 (140-440) 09/26/17 03:50 Lymph % (Auto) 12.8 % (13.4-35.0) L 09/24/17 10:21 [place] % (Auto) 2.9 % (0.0-7.3) 09/24/17 10:21 Eos % (Auto) 0.1 % (0.0-4.3) 09/24/17 10:21 Baso % (Auto) 0.5 % (0.0-1.8) 09/24/17 10:21 Lymph # 1.8 K/mm3 (1.2-5.4) 09/24/17 10:21 [place] # 0.4 K/mm3 (0.0-0.8) 09/24/17 10:21 Eos # 0.0 K/mm3 (0.0-0.4) 09/24/17 10:21 Baso # 0.1 K/mm3 (0.0-0.1) 09/24/17 10:21 Seg Neutrophils % 83.7 % (40.0-70.0) H 09/24/17 10:21 Seg Neutrophils # 11.6 K/mm3 (1.8-7.7) H 09/24/17 10:21 PT 14.5 Sec. (12.2-14.9) 09/24/17 11:45 INR 1.07 (0.87-1.13) 09/24/17 11:45 APTT 24.2 Sec. (24.2-36.6) 09/24/17 11:45 VBG pH 7.010 (7.320-7.420) L* 09/24/17 10:21 Sodium 140 mmol/L (137-145) 09/28/17 04:25 Potassium 2.6 mmol/L (3.6-5.0) L* 09/28/17 04:25 Chloride 101.2 mmol/L (98-107) 09/28/17 04:25 Carbon Dioxide 22 mmol/L (22-30) 09/28/17 04:25 Anion Gap 19 mmol/L 09/28/17 04:25 BUN 5 mg/dL (7-17) L 09/28/17 04:25 Creatinine 0.2 mg/dL (0.7-1.2) L 09/28/17 04:25 Estimated GFR > 60 ml/min 09/28/17 04:25 BUN/Creatinine Ratio 25 % 09/28/17 04:25 Glucose 95 mg/dL (65-100) 09/28/17 04:25 POC Glucose 265 (70-105) H 09/27/17 06:26 Lactic Acid 1.90 mmol/L (0.7-2.0) 09/25/17 03:24 Calcium 8.3 mg/dL (8.4-10.2) L 09/28/17 04:25 Phosphorus 3.20 mg/dL (2.5-4.5) 09/24/17 11:45 Magnesium 2.10 mg/dL (1.7-2.3) 09/24/17 11:45 Total Bilirubin 0.80 mg/dL (0.1-1.2) 09/24/17 11:45 Direct Bilirubin 0.3 mg/dL (0-0.2) H 09/24/17 11:45 Indirect Bilirubin 0.5 mg/dL 09/24/17 11:45 AST 16 units/L (5-40) 09/24/17 11:45 ALT 18 units/L (7-56) 09/24/17 11:45 Alkaline Phosphatase 109 units/L (35-129) 09/24/17 11:45 Total Creatine Kinase 101 units/L (30-135) 09/24/17 11:45 CK-MB (CK-2) 2.2 ng/mL (0.0-4.0) 09/24/17 11:45 CK-MB (CK-2) Rel Index 2.1 (0-4) 09/24/17 11:45 Troponin T < 0.010 ng/mL (0.00-0.029) 09/24/17 11:45 Total Protein 8.7 g/dL (6.3-8.2) H 09/24/17 11:45 Albumin 5.1 g/dL (3.9-5) H 09/24/17 11:45 Albumin/Globulin Ratio 1.4 % 09/24/17 11:45 Lipase 15 units/L (13-60) 09/24/17 11:45 HCG, Qual Negative (Negative) 09/24/17 11:45 Urine Color Straw (Yellow) 09/24/17 11:33 Urine Turbidity Clear (Clear) 09/24/17 11:33 Urine pH 5.0 (5.0-7.0) 09/24/17 11:33 Ur Specific [place] 1.022 (1.003-1.030) 09/24/17 11:33 Urine Protein 100 mg/dl mg/dL (Negative) 09/24/17 11:33 Urine Glucose (UA) >=500 mg/dL (Negative) 09/24/17 11:33 Urine Ketones 80 mg/dL (Negative) 09/24/17 11:33 Urine Blood Sm (Negative) 09/24/17 11:33 Urine Nitrite Neg (Negative) 09/24/17 11:33 Urine Bilirubin Neg (Negative) 09/24/17 11:33 Urine Urobilinogen < 2.0 mg/dL (<2.0) 09/24/17 11:33 Ur Leukocyte Esterase Neg (Negative) 09/24/17 11:33 Urine WBC (Auto) 4.0 /HPF (0.0-6.0) 09/24/17 11:33 Urine RBC (Auto) 3.0 /HPF (0.0-6.0) 09/24/17 11:33 U Epithel Cells (Auto) 3.0 /HPF (0-13.0) 09/24/17 11:33 Urine Mucus Few /HPF 09/24/17 11:33 Urine HCG, Qual Negative (Negative) 09/24/17 11:33 Salicylates < 0.3 mg/dL (2.8-20.0) L 09/24/17 11:45 Urine Opiates Screen Presumptive negative 09/24/17 Unknown Urine Methadone Screen Presumptive negative 09/24/17 Unknown Acetaminophen < 15.0 ug/mL (10.0-30.0) 09/24/17 11:45 Ur Barbiturates Screen Presumptive negative 09/24/17 Unknown Ur Phencyclidine Scrn Presumptive negative 09/24/17 Unknown Ur Amphetamines Screen Presumptive negative 09/24/17 Unknown U Benzodiazepines Scrn Presumptive negative 09/24/17 Unknown Urine Cocaine Screen Presumptive negative 09/24/17 Unknown U Marijuana (THC) Screen Presumptive negative 09/24/17 Unknown Drugs of Abuse Note Disclamer 09/24/17 Unknown
[2017-09-28] MEDS ORDERED: MAGNESIUM SULFATE 1 GM in NACL 0.9% 50 ML IV ONE (10:00)
[2017-09-28] MEDS ORDERED: KCL 40 MEQ in NACL 0.9% 500 ML 500 ML IV ONE (11:00)
[2017-09-29 06:22] LABS: Hematocrit 40.1 % (30.3-42.9); Mean Corpuscular HGB Conc 35 % (30-34); Mean Corpuscular Hemoglobin 32 pg (28-32); Mean Corpuscular Volume 92 fl (79-97); Platelet Count 209 K/mm3 (140-440); Red Blood Count 4.36 M/mm3 (3.65-5.03); Red Cell Distribution Width 12.9 % (13.2-15.2)
[2017-09-29 06:37] LABS: BUN/Creatinine Ratio 13; Blood Urea Nitrogen 4 mg/dL (7-17); Calcium 8.3 mg/dL (8.4-10.2); Hemolysis Index 2
[2017-09-29 08:10] VITALS: BP 132/91
--- NOTE | 2017-09-29 08:11 | Discharge Summary ---
Providers - Providers Date of Admission: 09/24/17 13:02 Date of discharge: 09/29/17 Attending physician: CHENTE BOONE 09/24/17 11:12 Consult to Case Management [CONS] Routine Services Needed at Discharge: Other Notified:: kari 09/24/17 13:04 Consult to Physician [CONS] Urgent Consulting Provider: LIZABETH COTTON Reason For Exam: ICU admission Notified:: lisandra 09/24/17 18:45 Consult to Dietitian/Nutrition [CONS] Routine Physician Instructions: Reason For Exam: Reason for Consult: Diet education 09/25/17 21:10 Consult to Dietitian/Nutrition [CONS] Routine Physician Instructions: Reason For Exam: Reason for Consult: Diet education Primary care physician: BEHAVIORAL HEALTH THERAPIST Hospitalization Reason for admission: DKA Condition: Stable Hospital course: A 32-year-old -[place] female with history of diabetes not taking her insulin for the last 2 days prior to admission presented to the ER with complaints of nausea and fatigue.patient reportedly vomited couple of times and had abdominal discomfort. She was admitted with DKA likely secondary to noncompliance of medication. The patient was placed on DKA protocol and treated with IV fluid hydration and IV insulin drip. The DKA resolved and patient was transferred to the floor out of the ICU. Other consultations during hospital stay included the abdominal discomfort. X-rays and CT scan of the abdomen and pelvis were found to be unremarkable. Etiology was felt to be most likely to gastroparesis and gastric emptying nuclear study is pending. The results can be followed up as an outpatient. The patient is able to tolerate by mouth and will be discharged home. Dedicated discharge time 32 minutes. Disposition: - TO HOME OR SELFCARE Time spent for discharge: 32 - Discharge Diagnoses (1) Abdominal pain Status: Acute Qualifiers: Abdominal location: left lower quadrant Qualified Code(s): R10.32 - Left lower quadrant pain (2) DKA (diabetic ketoacidoses) Status: Acute Qualifiers: Diabetes mellitus type: type 1 Diabetes mellitus complication detail: without coma Qualified Code(s): E10.10 - Type 1 diabetes mellitus with ketoacidosis without coma (3) Metabolic acidosis Status: Acute (4) Obesity Status: Acute (5) Hyperglycemia Status: Acute (6) Uncontrolled diabetes mellitus Status: Acute Core Measure Documentation - Palliative Care Palliative Care/ Comfort Measures: Not Applicable - Core Measures Any of the following diagnoses?: none Exam - Constitutional Vitals: Temp Pulse Resp BP Pulse Ox 99.0 F 99 H 18 123/80 100 09/28/17 23:11 09/28/17 23:11 09/28/17 23:11 09/28/17 23:11 09/28/17 23:11 General appearance: Present: no acute distress, well-nourished - EENT Eyes: Present: PERRL ENT: hearing intact, clear oral mucosa - Neck Neck: Present: supple, normal ROM - Respiratory Respiratory effort: normal Respiratory: bilateral: CTA - Cardiovascular Heart Sounds: Present: S1 & S2. Absent: rub, click - Extremities Extremities: pulses symmetrical, No edema Peripheral Pulses: within normal limits - Abdominal General gastrointestinal: Present: soft, non-tender, non-distended, normal bowel sounds Female genitourinary: Present: normal - Integumentary Integumentary: Present: clear, warm, dry - Musculoskeletal Musculoskeletal: gait normal, strength equal bilaterally - Psychiatric Psychiatric: appropriate mood/affect, intact judgment & insight - Neurologic Neurologic: CNII-XII intact, moves all extremities Plan Activity: no restrictions Weight Bearing Status: Weight Bear as Tolerated Diet: diabetic Follow up with: SHERRIE JUNIOR MD [Staff Physician] - 7 Days PRIMARY CARE, [Primary Care Provider] - 3-5 Days Forms: Accompanied Note Prescriptions: Insulin NPH/Regular [NovoLIN 70/30] 40 unit SUB-Q BIDDIAB #1 units Metoclopramide [Reglan] 10 mg PO TID #60 tab Ondansetron [Zofran Odt] 4 mg PO Q4-6H PRN #30 tab.rapdis PRN Reason: Nausea oxyCODONE /ACETAMINOPHEN [Percocet 5/325 mg] 1 tab PO Q6H PRN #20 tablet PRN Reason: Pain, Moderate (4-6)
[2017-09-29] MEDS: HumaLOG SUB-Q SCH (08:59)
--- NOTE | 2017-10-01 08:44 | Nuclear Medicine Report ---
GASTRIC EMPTYING SCAN History: Nausea. Findings: Anterior scintigraphic images were obtained for 90 minutes following ingestion of 1.0 mCi of technetium 99m sulfur colloid. The images demonstrate a half life for gastric imaging measuring 158 minutes. No scintigraphic evidence for reflux disease. Impression: Gastroparesis.
== END 2017-09-29 12:10 | disposition home or self-care (01) | DRG 74 ==
LOC: ED 10:05 → CC1 13:02 → 3A 09-26 09:39
PROVIDERS: ADMIT Internal Medicine; ATTEND Hospitalist
DX: E10.43 Type 1 diabetes mellitus with diabetic autonomic (poly)neuropathy (principal); E10.10 Type 1 diabetes mellitus with ketoacidosis without coma; F17.200 Nicotine dependence, unspecified, uncomplicated; E87.6 Hypokalemia; E66.9 Obesity, unspecified; K31.84 Gastroparesis; Z79.4 Long term (current) use of insulin; Z79.2 Long term (current) use of antibiotics; Z68.21 Body mass index [BMI] 21.0-21.9, adult; Z91.14 Patient's other noncompliance with medication regimen
CPT/HCPCS: 36415; 71045; 74177; 78264; 80048; 80074; 80307; 80320; 81001; 81025; 82140; 82550; 82553; 82805; 82962; 83690; 83735; 84100; 84484; 84703; 85025; 85027; 85610; 85730; 87040; 87086; 96361; 96365; 99291; A9541; G0480; J1630; J1815; J2405; J2543; J2765; J3475; J3480; J7030; J7040; J7050; Q9967

== ENCOUNTER 2018-10-20 16:42 | Emergency (ER) | payer OTHER ==
[2018-10-20 19:14] LABS: Basophils # (Auto) 0.1 K/mm3 (0.0-0.1); Basophils % (Auto) 0.9 % (0.0-1.8); Eosinophils % (Auto) 0.1 % (0.0-4.3); Hematocrit 36.7 % (30.3-42.9); Hemoglobin 12.8 gm/dl (10.1-14.3); Lymphocytes # (Auto) 1.6 K/mm3 (1.2-5.4); Lymphocytes % (Auto) 25.7 % (13.4-35.0); Mean Corpuscular HGB Conc 35 % (30-34); Mean Corpuscular Volume 94 fl (79-97); Monocytes # (Auto) 0.5 K/mm3 (0.0-0.8); Monocytes % (Auto) 7.2 % (0.0-7.3); Platelet Count 259 K/mm3 (140-440); Red Blood Count 3.91 M/mm3 (3.65-5.03); Red Cell Distribution Width 12.8 % (13.2-15.2)
[2018-10-20 19:26] LABS: Alanine Aminotransferase 32 units/L (7-56); Albumin 4.1 g/dL (3.9-5); BUN/Creatinine Ratio 20; Blood Urea Nitrogen 10 mg/dL (7-17); Hemolysis Index 5
[2018-10-20 20:22] LABS: Bilirubin,Urine NEG (Negative); Blood,Urine NEG (Negative); Color,Urine Yellow (Yellow); HCG Qualitative,Urine Negative (Negative); Mucus,Urine FEW /HPF; Protein,Urine <15 mg/dL mg/dL (Negative); Urobilinogen,Urine < 2.0 mg/dL (<2.0); WBC,Urine < 1.0 /HPF (0.0-6.0)
[2018-10-20] MEDS ORDERED: ZOFRAN IV ONE (21:33)
[2018-10-20] MEDS ORDERED: HumuLIN R IV ONE (21:33)
[2018-10-20] MEDS ORDERED: NACL 0.9% 1000 ML 1,000 ML IV ONE ×2 (21:33)
[2018-10-20] MEDS ORDERED: ATIVAN IV ONE (21:34)
--- NOTE | 2018-10-20 23:26 | XRay Report ---
PROCEDURE: XR CHEST ROUTINE 2V HISTORY: presyncope and tachycardia FINDINGS: Frontal and lateral views the chest were acquired and compared to the prior examination of April 26, 2018. The heart is normal in size. The lungs appear clear. The pleura and mediastinum are within normal alcantara its. IMPRESSION: No active disease in the chest This document is electronically signed by Wes Jeff MD., October 20 2018 11:24:46 PM ET
[2018-10-21 00:09] VITALS: BP 102/68
--- NOTE | 2018-10-21 00:55 | Emergency Department Report ---
ED General Adult HPI - General Chief complaint: Hyperglycemia Stated complaint: DIABETIC PROBLEMS Time Seen by Provider: 10/20/18 21:28 Source: patient Mode of arrival: Ambulatory Limitations: No Limitations - History of Present Illness Initial comments: Patient is a 33-year-old Female who states that work today she was feeling some lightheadedness and was having palpitations and trouble breathing. Patient felt as though she was having an anxiety attack. Patient's was seen to have elevated blood sugar per EMS. The patient has a history of diabetes and takes Novolin 70/30. Patient denies any vomiting but has mild nausea. States has been no maki st pain shortness of breath cough or congestion. Severity scale (0 -10): 0 - Related Data Previous Rx's Medication Instructions Recorded Last Taken Type Insulin NPH/Regular [NovoLIN 70/30] 40 unit SUB-Q BIDDIAB #1 units 09/27/17 Unknown Rx Ondansetron [Zofran Odt] 4 mg PO Q4-6H PRN #30 tab.rapdis 09/27/17 Unknown Rx oxyCODONE /ACETAMINOPHEN [Percocet 1 tab PO Q6H PRN #20 tablet 09/29/17 Unknown Rx 5/325 mg] oxyCODONE /ACETAMINOPHEN [Percocet 1 tab PO Q8H PRN #12 tablet 04/28/18 Unknown Rx 5/325 mg] Allergies Allergy/AdvReac Type Severity Reaction Status Date / Time No Known Allergies Allergy Verified 09/24/17 10:18 ED Review of Systems ROS: Stated complaint: DIABETIC PROBLEMS Other details as noted in HPI Comment: All other systems reviewed and negative ED Past Medical Hx - Past Medical History Hx Congestive Heart Failure: No Hx Diabetes: Yes Hx Asthma: No Hx COPD: No - Surgical History Additional Surgical History: 3 c-sections - Social History Smoking Status: Current Every Day Smoker Substance Use Type: Alcohol, Marijuana - Medications Home Medications: Home Medications Medication Instructions Recorded Confirmed Last Taken Type Insulin NPH/Regular [NovoLIN 70/30] 40 unit SUB-Q BIDDIAB #1 units 09/27/17 04/27/18 Unknown Rx Ondansetron [Zofran Odt] 4 mg PO Q4-6H PRN #30 tab.rapdis 09/27/17 04/27/18 Unknown Rx oxyCODONE /ACETAMINOPHEN [Percocet 1 tab PO Q6H PRN #20 tablet 09/29/17 04/27/18 Unknown Rx 5/325 mg] oxyCODONE /ACETAMINOPHEN [Percocet 1 tab PO Q8H PRN #12 tablet 04/28/18 Unknown Rx 5/325 mg] ED Physical Exam - General Limitations: No Limitations General appearance: alert, anxious - Head Head exam: Present: atraumatic, normocephalic - Eye Eye exam: Present: normal appearance, PERRL, EOMI - ENT ENT exam: Present: normal orophraynx, mucous membranes moist - Neck Neck exam: Present: normal inspection - Respiratory Respiratory exam: Present: normal lung sounds bilaterally. Absent: respiratory distress, wheezes, rales, rhonchi - Cardiovascular Cardiovascular Exam: Present: regular rate, tachycardia. Absent: systolic murmur, diastolic murmur, rubs, gallop - GI/Abdominal GI/Abdominal exam: Present: soft, normal bowel sounds. Absent: distended, tenderness, guarding, rebound - Extremities Exam Extremities exam: Present: normal inspection - Back Exam Back exam: Present: normal inspection - Neurological Exam Neurological exam: Present: alert, oriented X3 - Psychiatric Psychiatric exam: Present: normal affect, normal mood - Skin Skin exam: Present: warm, dry, intact, normal color. Absent: rash ED Course Vital Signs 10/20/18 10/20/18 10/20/18 17:28 22:04 22:16 Temperature 98.8 F Pulse Rate 127 H 95 H Respiratory 18 25 H 30 H Rate Blood Pressure 102/66 121/86 O2 Sat by Pulse 98 100 100 Oximetry 10/20/18 10/20/18 10/20/18 22:30 22:46 23:00 Temperature Pulse Rate 100 H 105 H 107 H Respiratory 23 13 18 Rate Blood Pressure 112/75 121/86 121/87 O2 Sat by Pulse 100 100 89 Oximetry 10/20/18 10/20/18 10/20/18 23:16 23:30 23:46 Temperature Pulse Rate 104 H 101 H 98 H Respiratory 20 24 17 Rate Blood Pressure 121/87 106/78 106/78 O2 Sat by Pulse 100 100 100 Oximetry 10/21/18 00:00 Temperature Pulse Rate 106 H Respiratory 18 Rate Blood Pressure 102/68 O2 Sat by Pulse 94 Oximetry ED Medical Decision Making - Lab Data Result diagrams: 10/20/18 19:03 10/20/18 19:03 Lab Results 10/20/18 10/20/18 10/20/18 Range/Units 16:52 19:03 19:03 WBC 6.4 (4.5-11.0) K/mm3 RBC 3.91 (3.65-5.03) M/mm3 Hgb 12.8 (10.1-14.3) gm/dl Hct 36.7 (30.3-42.9) % MCV 94 (79-97) fl MCH 33 H (28-32) pg MCHC 35 H (30-34) % RDW 12.8 L (13.2-15.2) % Plt Count 259 (140-440) K/mm3 Lymph % (Auto) 25.7 (13.4-35.0) % Dale % (Auto) 7.2 (0.0-7.3) % Eos % (Auto) 0.1 (0.0-4.3) % Baso % (Auto) 0.9 (0.0-1.8) % Lymph # 1.6 (1.2-5.4) K/mm3 Dale # 0.5 (0.0-0.8) K/mm3 Eos # 0.0 (0.0-0.4) K/mm3 Baso # 0.1 (0.0-0.1) K/mm3 Seg Neutrophils % 66.1 (40.0-70.0) % Seg Neutrophils # 4.2 (1.8-7.7) K/mm3 POC ABG pH (7.35-7.45) POC ABG pCO2 (35-45) POC ABG pO2 (80-105) POC ABG HCO3 (22-26 mml/L) POC ABG Total CO2 (23-27mmol/L) POC ABG O2 Sat POC ABG Base Excess ((-2) - (+3)mmol/L) FiO2 % Sodium 131 L (137-145) mmol/L Potassium 3.9 (3.6-5.0) mmol/L Chloride 95.6 L (98-107) mmol/L Carbon Dioxide 22 (22-30) mmol/L Anion Gap 17 mmol/L BUN 10 (7-17) mg/dL Creatinine 0.5 L (0.7-1.2) mg/dL Estimated GFR > 60 ml/min BUN/Creatinine Ratio 20 % Glucose 390 H (65-100) mg/dL POC Glucose 390 H (70-105) Calcium 9.0 (8.4-10.2) mg/dL Total Bilirubin 1.20 (0.1-1.2) mg/dL AST 22 (5-40) units/L ALT 32 (7-56) units/L Alkaline Phosphatase 137 H (35-129) units/L Total Protein 6.6 (6.3-8.2) g/dL Albumin 4.1 (3.9-5) g/dL Albumin/Globulin Ratio 1.6 % Urine Color (Yellow) Urine Turbidity (Clear) Urine pH (5.0-7.0) Urine Protein (Negative) mg/dL Urine Glucose (UA) (Negative) mg/dL Urine Ketones (Negative) mg/dL Urine Blood (Negative) Urine Nitrite (Negative) Urine Bilirubin (Negative) Urine Urobilinogen (<2.0) mg/dL Ur Leukocyte Esterase (Negative) Urine WBC (Auto) (0.0-6.0) /HPF Urine RBC (Auto) (0.0-6.0) /HPF U Epithel Cells (Auto) (0-13.0) /HPF Urine Mucus /HPF Urine HCG, Qual (Negative) 10/20/18 10/21/18 10/21/18 Range/Units Unknown 00:03 00:06 WBC (4.5-11.0) K/mm3 RBC (3.65-5.03) M/mm3 Hgb (10.1-14.3) gm/dl Hct (30.3-42.9) % MCV (79-97) fl MCH (28-32) pg MCHC (30-34) % RDW (13.2-15.2) % Plt Count (140-440) K/mm3 Lymph % (Auto) (13.4-35.0) % Dale % (Auto) (0.0-7.3) % Eos % (Auto) (0.0-4.3) % Baso % (Auto) (0.0-1.8) % Lymph # (1.2-5.4) K/mm3 Dale # (0.0-0.8) K/mm3 Eos # (0.0-0.4) K/mm3 Baso # (0.0-0.1) K/mm3 Seg Neutrophils % (40.0-70.0) % Seg Neutrophils # (1.8-7.7) K/mm3 POC ABG pH 7.454 H (7.35-7.45) POC ABG pCO2 34.0 L (35-45) POC ABG pO2 131 H (80-105) POC ABG HCO3 23.9 (22-26 mml/L) POC ABG Total CO2 25 (23-27mmol/L) POC ABG O2 Sat 99 POC ABG Base Excess 0 ((-2) - (+3)mmol/L) FiO2 21 % Sodium (137-145) mmol/L Potassium (3.6-5.0) mmol/L Chloride (98-107) mmol/L Carbon Dioxide (22-30) mmol/L Anion Gap mmol/L BUN (7-17) mg/dL Creatinine (0.7-1.2) mg/dL Estimated GFR ml/min BUN/Creatinine Ratio % Glucose (65-100) mg/dL POC Glucose 183 H (70-105) Calcium (8.4-10.2) mg/dL Total Bilirubin (0.1-1.2) mg/dL AST (5-40) units/L ALT (7-56) units/L Alkaline Phosphatase (35-129) units/L Total Protein (6.3-8.2) g/dL Albumin (3.9-5) g/dL Albumin/Globulin Ratio % Urine Color Yellow (Yellow) Urine Turbidity Slightly-cloudy (Clear) Urine pH 5.0 (5.0-7.0) Urine Protein <15 mg/dl (Negative) mg/dL Urine Glucose (UA) >=500 (Negative) mg/dL Urine Ketones 80 (Negative) mg/dL Urine Blood Neg (Negative) Urine Nitrite Neg (Negative) Urine Bilirubin Neg (Negative) Urine Urobilinogen < 2.0 (<2.0) mg/dL Ur Leukocyte Esterase Neg (Negative) Urine WBC (Auto) < 1.0 (0.0-6.0) /HPF Urine RBC (Auto) 3.0 (0.0-6.0) /HPF U Epithel Cells (Auto) < 1.0 (0-13.0) /HPF Urine Mucus Few /HPF Urine HCG, Qual Negative (Negative) - Radiology Data Radiology results: report reviewed (CXR WNL) - Medical Decision Making Patient is a 33-year-old asthmatic female presenting with some lightheadedness and elevated blood glucose. Patient states she has not missed any doses of her insulin. Patient's ABG shows that she is not in DKA. Patient does have some ketones present and the patient was aggressively hydrated. Patient was given 5 of insulin and her blood sugar is improving. Patient's likely with some dehydration causing ketosis and elevated glucose. Patient stable for discharge home. Critical care attestation.: If time is entered above; I have spent that time in minutes in the direct care of this critically ill patient, excluding procedure time. ED Disposition Clinical Impression: Hyperglycemia, Dehydration, Ketonuria Disposition: DC- TO HOME OR SELFCARE Is pt being admited?: No Does the pt Need Aspirin: No Condition: Stable Instructions: Dehydration (ED), Diabetic Hyperglycemia (ED) Referrals: ELENI CALDWELL MD [Primary Care Provider] - 3-5 Days Time of Disposition: 00:54
== END 2018-10-21 01:08 | disposition home or self-care (01) ==
LOC: ED 16:42
DX: E86.0 Dehydration (principal); R82.4 Acetonuria; R00.2 Palpitations; R06.00 Dyspnea, unspecified; E11.65 Type 2 diabetes mellitus with hyperglycemia; F17.200 Nicotine dependence, unspecified, uncomplicated; F12.10 Cannabis abuse, uncomplicated; Z79.4 Long term (current) use of insulin
CPT/HCPCS: 36415; 71046; 80053; 81001; 81025; 82803; 82962; 85025; 96361; 96374; 96375; 99284; J2060; J2405; J7030; J1815

== ENCOUNTER 2019-02-28 02:54 | Inpatient (IN) | payer OTHER ==
[2019-02-28] MEDS ORDERED: HumuLIN R IV ONE (03:26)
[2019-02-28] MEDS ORDERED: NACL 0.9% 1000 ML 1,000 ML IV ONE ×5 (03:26→22:44)
[2019-02-28] MEDS ORDERED: ZOFRAN IV ONE (03:26)
[2019-02-28] MEDS ORDERED: D50W (25GM) Syringe IV PRN ×2 (03:27→15:48)
[2019-02-28] MEDS ORDERED: NACL 0.9% 1000 ML 2,000 ML ONE ×2 (03:31→16:27)
[2019-02-28] MEDS ORDERED: HumuLIN R ONE (03:31)
[2019-02-28] MEDS ORDERED: HumuLIN R 100 UNITS in NACL 0.9% 99 ML IV SCH (04:00)
[2019-02-28 04:20] LABS: Basophils # (Auto) 0.1 K/mm3 (0.0-0.1); Eosinophils % (Auto) 0.2 % (0.0-4.3); Hematocrit 41.2 % (30.3-42.9); Hemoglobin 13.7 gm/dl (10.1-14.3); Lymphocytes # (Auto) 1.8 K/mm3 (1.2-5.4); Mean Corpuscular HGB Conc 33 % (30-34); Mean Corpuscular Volume 99 fl (79-97); Monocytes # (Auto) 0.4 K/mm3 (0.0-0.8); Monocytes % (Auto) 5.2 % (0.0-7.3); Platelet Count 273 K/mm3 (140-440); Red Blood Count 4.18 M/mm3 (3.65-5.03); Red Cell Distribution Width 13.2 % (13.2-15.2)
[2019-02-28 04:30] LABS: BUN/Creatinine Ratio 18; Blood Urea Nitrogen 11 mg/dL (7-17); Calcium 9.4 mg/dL (8.4-10.2); Hemolysis Index 5
[2019-02-28 04:32] LABS: Albumin 4.7 g/dL (3.9-5); Bilirubin,Direct 0.5 mg/dL (0-0.2)
--- NOTE | 2019-02-28 04:41 | Emergency Department Report ---
ED Altered Mental Status HPI - General Chief Complaint: Hyperglycemia Stated Complaint: VOMITING/DKA Time Seen by Provider: 02/28/19 03:23 Source: patient, family Mode of arrival: Wheelchair Limitations: Altered Mental Status - History of Present Illness Initial Comments: 33-year-old female with a past medical history insulin-dependent diabetes and previous TIA this hospital with altered mental status and nausea and vomiting since yesterday. She is brought in by her boyfriend. At the bedside she is is lethargic and unable to give any history of present illness. It is unclear whether or not patient has been compliant with her medication. As per RN boyfriend dropped her off stating he was going to move the car. He did not return back to the ED. He did mention that they got into a big argument last night. MD Complaint: altered mental status - Related Data Previous Rx's Medication Instructions Recorded Last Taken Type Insulin NPH/Regular [NovoLIN 70/30] 40 unit SUB-Q BIDDIAB #1 units 09/27/17 Unknown Rx Ondansetron [Zofran Odt] 4 mg PO Q4-6H PRN #30 tab.rapdis 09/27/17 Unknown Rx oxyCODONE /ACETAMINOPHEN [Percocet 1 tab PO Q6H PRN #20 tablet 09/29/17 Unknown Rx 5/325 mg] oxyCODONE /ACETAMINOPHEN [Percocet 1 tab PO Q8H PRN #12 tablet 04/28/18 Unknown Rx 5/325 mg] Allergies Allergy/AdvReac Type Severity Reaction Status Date / Time No Known Allergies Allergy Verified 09/24/17 10:18 ED Review of Systems ROS: Stated complaint: VOMITING/DKA Other details as noted in HPI Comment: Unobtainable due to pts medical conditions ED Past Medical Hx - Past Medical History Previous Medical History?: Yes Hx Congestive Heart Failure: No Hx Diabetes: Yes Hx Asthma: No Hx COPD: No - Surgical History Past Surgical History?: Yes Additional Surgical History: 3 c-sections - Social History Smoking Status: Current Every Day Smoker Substance Use Type: Marijuana - Medications Home Medications: Home Medications Medication Instructions Recorded Confirmed Last Taken Type Insulin NPH/Regular [NovoLIN 70/30] 40 unit SUB-Q BIDDIAB #1 units 18 04/27/18 Unknown Rx Ondansetron [Zofran Odt] 4 mg PO Q4-6H PRN #30 tab.rapdis 09/27/17 04/27/18 Unknown Rx oxyCODONE /ACETAMINOPHEN [Percocet 1 tab PO Q6H PRN #20 tablet 09/29/17 04/27/18 Unknown Rx 5/325 mg] oxyCODONE /ACETAMINOPHEN [Percocet 1 tab PO Q8H PRN #12 tablet 04/28/18 Unknown Rx 5/325 mg] ED Physical Exam - General Limitations: No Limitations - Other Other exam information: General: Altered Eyes: Normal appearance, pupils equal reactive to light ENT: Normal oropharynx Neck: Normal appearance, no C-spine tenderness, no meningismus Chest: Clear to auscultation bilaterally, no wheezes, rales, or crackles Cardiovascular: Regular rate and rhythm Abdomen: Soft, nondistended, lower abd tenderness, no rebound or guarding, normal bowel sounds Back: Normal inspection, nontender Extremity: Normal inspection, no deformity, full range of motion Neuro: lethargic, nods in response to questions then falls back asleep. No gross motor sensory deficit Skin: No rash, warmth or erythema ED Course Vital Signs 02/28/19 02/28/19 03:02 05:51 Temperature 98 F Pulse Rate 95 H 104 H Respiratory 20 18 Rate Blood Pressure 144/90 Blood Pressure 106/80 [Left] O2 Sat by Pulse 99 98 Oximetry - Reevaluation(s) Reevaluation #1: 02/28/19 04:45 pt appears to be in dka, however given hx the RN told me about the boyfriend and argument I added aspirin, Tylenol, and alcohol to blood work. Also with scant patient's head and abdomen to rule out other causes of alteration in mental status. - Lab Data Result diagrams: 02/28/19 03:27 02/28/19 03:27 Lab Results 02/28/19 02/28/19 02/28/19 Range/Units 03:05 03:27 03:27 WBC 7.1 (4.5-11.0) K/mm3 RBC 4.18 (3.65-5.03) M/mm3 Hgb 13.7 (10.1-14.3) gm/dl Hct 41.2 (30.3-42.9) % MCV 99 H (79-97) fl MCH 33 H (28-32) pg MCHC 33 (30-34) % RDW 13.2 (13.2-15.2) % Plt Count 273 (140-440) K/mm3 Lymph % (Auto) 25.0 (13.4-35.0) % [place] % (Auto) 5.2 (0.0-7.3) % Eos % (Auto) 0.2 (0.0-4.3) % Baso % (Auto) 1.0 (0.0-1.8) % Lymph # 1.8 (1.2-5.4) K/mm3 [place] # 0.4 (0.0-0.8) K/mm3 Eos # 0.0 (0.0-0.4) K/mm3 Baso # 0.1 (0.0-0.1) K/mm3 Seg Neutrophils % 68.6 (40.0-70.0) % Seg Neutrophils # 4.9 (1.8-7.7) K/mm3 VBG pH (7.320-7.420) Sodium 133 L (137-145) mmol/L Potassium 4.6 (3.6-5.0) mmol/L Chloride 94.6 L (98-107) mmol/L Carbon Dioxide 11 L (22-30) mmol/L Anion Gap 32 mmol/L BUN 11 (7-17) mg/dL Creatinine 0.6 L (0.7-1.2) mg/dL Estimated GFR > 60 ml/min BUN/Creatinine Ratio 18 % Glucose 582 H* (65-100) mg/dL POC Glucose > 500 H (70-105) Calcium 9.4 (8.4-10.2) mg/dL Phosphorus (2.5-4.5) mg/dL Magnesium (1.7-2.3) mg/dL Total Bilirubin (0.1-1.2) mg/dL Direct Bilirubin (0-0.2) mg/dL Indirect Bilirubin mg/dL AST (5-40) units/L ALT (7-56) units/L Alkaline Phosphatase (35-129) units/L Total Protein (6.3-8.2) g/dL Albumin (3.9-5) g/dL Albumin/Globulin Ratio % Lipase (13-60) units/L HCG, Qual (Negative) 02/28/19 02/28/1902/28/19 Range/Units 03:27 03:27 03:27 WBC (4.5-11.0) K/mm3 RBC (3.65-5.03) M/mm3 Hgb (10.1-14.3) gm/dl Hct (30.3-42.9) % MCV (79-97) fl MCH (28-32) pg MCHC (30-34) % RDW (13.2-15.2) % Plt Count (140-440) K/mm3 Lymph % (Auto) (13.4-35.0) % [place] % (Auto) (0.0-7.3) % Eos % (Auto) (0.0-4.3) % Baso % (Auto) (0.0-1.8) % Lymph # (1.2-5.4) K/mm3 [place] # (0.0-0.8) K/mm3 Eos # (0.0-0.4) K/mm3 Baso # (0.0-0.1) K/mm3 Seg Neutrophils % (40.0-70.0) % Seg Neutrophils # (1.8-7.7) K/mm3 VBG pH 7.150 L* (7.320-7.420) Sodium (137-145) mmol/L Potassium (3.6-5.0) mmol/L Chloride (98-107) mmol/L Carbon Dioxide (22-30) mmol/L Anion Gap mmol/L BUN (7-17) mg/dL Creatinine (0.7-1.2) mg/dL Estimated GFR ml/min BUN/Creatinine Ratio % Glucose (65-100) mg/dL POC Glucose (70-105) Calcium (8.4-10.2) mg/dL Phosphorus (2.5-4.5) mg/dL Magnesium (1.7-2.3) mg/dL Total Bilirubin 1.70 H (0.1-1.2) mg/dL Direct Bilirubin 0.5 H (0-0.2) mg/dL Indirect Bilirubin 1.2 mg/dL AST 26 (5-40) units/L ALT 38 (7-56) units/L Alkaline Phosphatase 180 H (35-129) units/L Total Protein 8.0 (6.3-8.2) g/dL Albumin 4.7 (3.9-5) g/dL Albumin/Globulin Ratio 1.4 % Lipase 14 (13-60) units/L HCG, Qual Negative (Negative) 02/28/19 Range/Units 03:27 WBC (4.5-11.0) K/mm3 RBC (3.65-5.03) M/mm3 Hgb (10.1-14.3) gm/dl Hct (30.3-42.9) % MCV (79-97) fl MCH (28-32) pg MCHC (30-34) % RDW (13.2-15.2) % Plt Count (140-440) K/mm3 Lymph % (Auto) (13.4-35.0) % [place] % (Auto) (0.0-7.3) % Eos % (Auto) (0.0-4.3) % Baso % (Auto) (0.0-1.8) % Lymph # (1.2-5.4) K/mm3 [place] # (0.0-0.8) K/mm3 Eos # (0.0-0.4) K/mm3 Baso # (0.0-0.1) K/mm3 Seg Neutrophils % (40.0-70.0) % Seg Neutrophils # (1.8-7.7) K/mm3 VBG pH (7.320-7.420) Sodium (137-145) mmol/L Potassium (3.6-5.0) mmol/L Chloride (98-107) mmol/L Carbon Dioxide (22-30) mmol/L Anion Gap mmol/L BUN (7-17) mg/dL Creatinine (0.7-1.2) mg/dL Estimated GFR ml/min BUN/Creatinine Ratio % Glucose (65-100) mg/dL POC Glucose (70-105) Calcium (8.4-10.2) mg/dL Phosphorus 3.10 (2.5-4.5) mg/dL Magnesium 2.10 (1.7-2.3) mg/dL Total Bilirubin (0.1-1.2) mg/dL Direct Bilirubin (0-0.2) mg/dL Indirect Bilirubin mg/dL AST (5-40) units/L ALT (7-56) units/L Alkaline Phosphatase (35-129) units/L Total Protein (6.3-8.2) g/dL Albumin (3.9-5) g/dL Albumin/Globulin Ratio % Lipase (13-60) units/L HCG, Qual (Negative) - EKG Data -: EKG Interpreted by [place] EKG shows normal: sinus rhythm (q), axis (qrs 57), QRS complexes (qrs ), ST-T waves (no stemi/t inv) Rate: tachycardia (101) - Radiology Data Radiology results: report reviewed CT ABDOMEN AND PELVIS WITH CONTRAST HISTORY: n,v, abd pain. COMPARISON: CT abdomen/pelvis from 09/24/2017 TECHNIQUE: CT images of the abdomen and pelvis were obtained following administration of intravenous contrast. All CT scans at this location are performed using CT dose reduction for ALARA by means of automated exposure control. CONTRAST: 100 ml of intravenous contrast administered. FINDINGS: Lungs/bones: Lung bases are clear. There is no acute osseous abnormality or significant DJD. Abdomen/pelvis: There is heterogeneous low attenuation along the ligamentum in the liver likely representing fatty infiltration. Liver otherwise appears unremarkable. The gallbladder, spleen, pancreas, adrenals, right kidney, and proximal GI tract appear unremarkable. There are simple cysts in the upper pole of the left kidney. Urinary bladder is unremarkable. An IUD is positioned within the uterus. There small bilateral ovarian follicles and trace simple pelvic free fluid. No acute colonic abnormality identified. The terminal ileum and appendix appear unremarkable. IMPRESSION: 1. No acute abnormality identified. 2. Incidental findings as above. CT head without contrast INDICATION : ams, possible dka. TECHNIQUE: Axial imaging performed from the skull apex through the skull base without the use of contrast. All CT scans at this location are performed using CT dose reduction for [place] by means of automated exposure control. COMPARISON: None FINDINGS: Parenchyma: No acute intracranial hemorrhage or parenchymal abnormality. Ventricles: Ventricles are normal in size and appear symmetric. Soft tissues: Soft tissues including the orbits appear normal. Bones: No acute osseous abnormality. Sinuses: Small left maxillary sinus mucus retention cyst. Remaining sinuses and mastoid air cells are clear. IMPRESSION: No acute abnormality. - Medical Decision Making DKA with alteration in mental status as well as nausea and vomiting. Imaging tests unremarkable. Patient treated with insulin bolus, drip, and normal saline. Hospitalist so far for admission. Patient will require ICU admission. urine collection/asa/tylenol/etoh pending at disp - Differential Diagnosis DKA, Overdose, encephalopathy, ICH, gastritis, pancreatitis, intra-abdomina Critical Care Time: Yes Critical care time in (mins) excluding proc time.: 60 Critical care attestation.: If time is entered above; I have spent that time in minutes in the direct care of this critically ill patient, excluding procedure time. ED Disposition Clinical Impression: DKA (diabetic ketoacidoses), Acute alteration in mental status Disposition: DC-09 OP ADMIT IP TO THIS HOSP Is pt being admited?: Yes Condition: Stable Time of Disposition: 05:56 (DR Pino/hosp)
--- NOTE | 2019-02-28 05:48 | Cat Scan Report ---
CT head without contrast INDICATION : ams, possible dka. TECHNIQUE: Axial imaging performed from the skull apex through the skull base without the use of con trast. All CT scans at this location are performed using CT dose reduction for ALARA by means of aut omated exposure control. COMPARISON: None FINDINGS: Parenchyma: No acute intracranial hemorrhage or parenchymal abnormality. Ventricles: Ventricles are normal in size and appear symmetric. Soft tissues: Soft tissues including the orbits appear normal. Bones: No acute osseous abnormality. Sinuses: Small left maxillary sinus mucus retention cyst. Remaining sinuses and mastoid air cells ar e clear. IMPRESSION: No acute abnormality. Signer Name: Armani Pina MD Signed: 02/28/2019 5:44 AM Workstation Name: [id number]
--- NOTE | 2019-02-28 05:51 | Cat Scan Report ---
CT ABDOMEN AND PELVIS WITH CONTRAST HISTORY: n,v, abd pain. COMPARISON: CT abdomen/pelvis from 09/24/2017 TECHNIQUE: CT images of the abdomen and pelvis were obtained following administration of intravenous contrast. All CT scans at this location are performed using CT dose reduction for ALARA by means of automated exposure control. CONTRAST: 100 ml of intravenous contrast administered. FINDINGS: Lungs/bones: Lung bases are clear. There is no acute osseous abnormality or significant DJD. Abdomen/pelvis: There is heterogeneous low attenuation along the ligamentum in the liver likely repre senting fatty infiltration. Liver otherwise appears unremarkable. The gallbladder, spleen, pancreas, adrenals, right kidney, and proximal GI tract appear unremarkable. There are simple cysts in the uppe r pole of the left kidney. Urinary bladder is unremarkable. An IUD is positioned within the uterus. There small bilateral ovaria n follicles and trace simple pelvic free fluid. No acute colonic abnormality identified. The terminal ileum and appendix appear unremarkable. IMPRESSION: 1. No acute abnormality identified. 2. Incidental findings as above. Signer Name: Armani Pina MD Signed: 02/28/2019 5:47 AM Workstation Name: [id number]
[2019-02-28 06:05] LABS: BUN/Creatinine Ratio 20; Blood Urea Nitrogen 10 mg/dL (7-17); Calcium 8.3 mg/dL (8.4-10.2); Hemolysis Index 4
[2019-02-28] MEDS ORDERED: ZOFRAN IV PRN (06:08)
[2019-02-28] MEDS ORDERED: SODIUM CHLORIDE FLUSH SYRINGE 10 ML IV PRN (06:08)
[2019-02-28] MEDS ORDERED: TYLENOL PO PRN (06:08)
--- NOTE | 2019-02-28 06:16 | History and Physical Report ---
History of Present Illness Chief complaint: Brought in by boyfriend for lethargy History of present illness: 33-year-old woman with history of insulin-dependent diabetes, previous TIA. She is brought in by her boyfriend for lethargy. Her boyfriend [facility] and demonstrated ER. It's unclear what happened prior to her coming, we do not know if she was compliant with her medications that she had any other symptoms. Her boyfriend dropped her off stating he had to move his car and he did not return. Prior to boyfriend he had a very big argument that night. Past medical history type 1 diabetes, insulin-dependent Past surgical history; 3 C-sections Social history; current every day smoker, marijuana abuse, alcohol use, unclear how much alcohol she drinks Family history; unknown Medications and Allergies Allergies Allergy/AdvReac Type Severity Reaction Status Date / Time No Known Allergies Allergy Verified 09/24/17 10:18 Home Medications Medication Instructions Recorded Confirmed Last Taken Type Insulin NPH/Regular [NovoLIN 70/30] 40 unit SUB-Q BIDDIAB #1 units 09/27/17 04/27/18 Unknown Rx Ondansetron [Zofran Odt] 4 mg PO Q4-6H PRN #30 tab.rapdis 09/27/17 04/27/18 Unknown Rx oxyCODONE /ACETAMINOPHEN [Percocet 1 tab PO Q6H PRN #20 tablet 09/29/17 04/27/18 Unknown Rx 5/325 mg] oxyCODONE /ACETAMINOPHEN [Percocet 1 tab PO Q8H PRN #12 tablet 04/28/18 Unknown Rx 5/325 mg] Active Meds: Active Medications Acetaminophen (Tylenol) 650 mg PO Q4H PRN PRN Reason: Pain MILD(1-3)/Fever >100.5/FRANCES Dextrose (D50w (25gm) Syringe) 0 ml IV PRN PRN PRN Reason: Hypoglycemia Enoxaparin Sodium (Lovenox) 40 mg SUB-Q QDAY KATIE Insulin Human Regular 100 (units/ Sodium Chloride) 100 mls @ 1 mls/hr IV TITR KATIE; Protocol Last Admin: 02/28/19 05:30 Dose: 6 units/hr, 6 mls/hr Documented by: Sodium Chloride (Nacl 0.9% 1000 Ml) 1,000 mls @ 999 mls/hr IV BOLUS ONE Stop: 02/28/19 06:36 Last Admin: 02/28/19 05:44 Dose: 999 mls/hr Documented by: Sodium Chloride (Nacl 0.9% 1000 Ml) 1,000 mls @ 150 mls/hr IV DIRECT KATIE Ondansetron HCl (Zofran) 4 mg IV Q8H PRN PRN Reason: Nausea And Vomiting Sodium Chloride (Sodium Chloride Flush Syringe 10 Ml) 10 ml IV BID KATIE Sodium Chloride (Sodium Chloride Flush Syringe 10 Ml) 10 ml IV PRN PRN PRN Reason: LINE FLUSH Review of Systems ROS unobtainable: due to mental status Exam - Constitutional Vitals: Temp Pulse Resp BP Pulse Ox 98 F 104 H 18 106/80 98 02/28/19 03:02 02/28/19 05:51 02/28/19 05:51 02/28/19 05:51 02/28/19 05:51 General appearance: Present: no acute distress, well-nourished, obese - EENT Eyes: Present: PERRL ENT: clear oral mucosa - Neck Neck: Present: supple, normal ROM - Respiratory Respiratory effort: normal Respiratory: bilateral: CTA - Cardiovascular Heart Sounds: Present: S1 & S2. Absent: rub, click - Extremities Extremities: pulses symmetrical, No edema Peripheral Pulses: within normal limits - Abdominal General gastrointestinal: Present: soft, non-tender, non-distended, normal bowel sounds Female genitourinary: Present: normal - Integumentary Integumentary: Present: clear, warm, dry - Musculoskeletal Musculoskeletal: gait normal, strength equal bilaterally - Psychiatric Psychiatric: no intact judgment & insight, other (lethargic) - Neurologic Neurologic: CNII-XII intact, moves all extremities Results - Labs CBC & Chem 7: 02/28/19 03:27 02/28/19 05:32 Labs: Laboratory Last Values WBC 7.1 K/mm3 (4.5-11.0) 02/28/19 03:27 RBC 4.18 M/mm3 (3.65-5.03) 02/28/19 03:27 Hgb 13.7 gm/dl (10.1-14.3) 02/28/19 03:27 Hct 41.2 % (30.3-42.9) 02/28/19 03:27 MCV 99 fl (79-97) H 02/28/19 03:27 MCH 33 pg (28-32) H 02/28/19 03:27 MCHC 33 % (30-34) 02/28/19 03:27 RDW 13.2 % (13.2-15.2) 02/28/19 03:27 Plt Count 273 K/mm3 (140-440) 02/28/19 03:27 Lymph % (Auto) 25.0 % (13.4-35.0) 02/28/19 03:27 [place] % (Auto) 5.2 % (0.0-7.3) 02/28/19 03:27 Eos % (Auto) 0.2 % (0.0-4.3) 02/28/19 03:27 Baso % (Auto) 1.0 % (0.0-1.8) 02/28/19 03:27 Lymph # 1.8 K/mm3 (1.2-5.4) 02/28/19 03:27 [place] # 0.4 K/mm3 (0.0-0.8) 02/28/19 03:27 Eos # 0.0 K/mm3 (0.0-0.4) 02/28/19 03:27 Baso # 0.1 K/mm3 (0.0-0.1) 02/28/19 03:27 Seg Neutrophils % 68.6 % (40.0-70.0) 02/28/19 03:27 Seg Neutrophils # 4.9 K/mm3 (1.8-7.7) 02/28/19 03:27 VBG pH 7.150 (7.320-7.420) L* 02/28/19 03:27 Sodium 136 mmol/L (137-145) L 02/28/19 05:32 Potassium 4.2 mmol/L (3.6-5.0) 02/28/19 05:32 Chloride 104.2 mmol/L (98-107) 02/28/19 05:32 Carbon Dioxide 13 mmol/L (22-30) L 02/28/19 05:32 23 mmol/L 02/28/19 05:32 BUN 10 mg/dL (7-17) 02/28/19 05:32 0.5 mg/dL (0.7-1.2) L 02/28/19 05:32 Estimated GFR > 60 ml/min 02/28/19 05:32 20 % 02/28/19 05:32 Glucose 329 mg/dL (65-100) H 02/28/19 05:32 POC Glucose > 500 (70-105) H 02/28/19 03:05 Calcium 8.3 mg/dL (8.4-10.2) L 02/28/19 05:32 Phosphorus 3.10 mg/dL (2.5-4.5) 02/28/19 03:27 Magnesium 2.10 mg/dL (1.7-2.3) 02/28/19 03:27 1.70 mg/dL (0.1-1.2) H 02/28/19 03:27 0.5 mg/dL (0-0.2) H 02/28/19 03:27 1.2 mg/dL 02/28/19 03:27 AST 26 units/L (5-40) 02/28/19 03:27 ALT 38 units/L (7-56) 02/28/19 03:27 180 units/L (35-129) H 02/28/19 03:27 8.0 g/dL (6.3-8.2) 02/28/19 03:27 4.7 g/dL (3.9-5) 02/28/19 03:27 1.4 % 02/28/19 03:27 14 units/L (13-60) 02/28/19 03:27 HCG, Qual Negative (Negative) 02/28/19 03:27 Salicylates < 0.3 mg/dL (2.8-20.0) L 02/28/19 05:32 Acetaminophen < 5.0 ug/mL (10.0-30.0) L 02/28/19 05:32 Plasma/Serum Alcohol < 0.01 % (0-0.07) 02/28/19 05:32 Assessment and Plan Assessment and plan: 33-year-old woman who is brought in by her boyfriend for lethargy, found to have DKA, unable to get any further history, patient was lethargic and her boyfriend left to go move his car and did not return CT abdomen and pelvis; no acute findings CT head, no acute abnormalities DKA Insulin ip, IV fluids, infectious workup including UA chest x-ray blood cultures which have been ordered Acute metabolic encephalopathy Most likely due to DKA Tobacco abuse Smoking cessation counseling , nicotine patches when necessary Follow-up UDS DVT prophylaxis; chemical CCT 33 mins
--- NOTE | 2019-02-28 06:38 | XRay Report ---
CHEST 1 VIEW INDICATION: lethargy. COMPARISON: 10/20/2018 FINDINGS: Support devices: None. Heart: Within normal limits. Lungs/Pleura: No acute air space or interstitial disease. Additional findings: None. IMPRESSION: 1. No acute findings. Signer Name: Armani Pina MD Signed: 02/28/2019 6:33 AM Workstation Name: [email or web address]
[2019-02-28] MEDS ORDERED: NACL 0.9% 1000 ML 1,000 ML IV SCH (07:00)
[2019-02-28] MEDS ORDERED: D5W/0.45% NACL/KCL 20 MEQ 20 MEQ/1,000 ML BAG IV SCH (08:00)
[2019-02-28] MEDS: HABITROL TD SCH (09:33)
[2019-02-28] MEDS: SODIUM CHLORIDE FLUSH SYRINGE 10 ML IV SCH ×2 (09:33→21:48)
[2019-02-28] MEDS: LOVENOX SUB-Q SCH (09:47)
[2019-02-28] MEDS ORDERED: LOVENOX SUB-Q ONE (09:48)
[2019-02-28 11:11] LABS: BUN/Creatinine Ratio 30; Blood Urea Nitrogen 9 mg/dL (7-17); Calcium 8.9 mg/dL (8.4-10.2); Hemolysis Index 59
[2019-02-28] MEDS ORDERED: NACL 0.9% 1000 ML 2,000 ML IV ONE (12:50)
[2019-02-28 13:40] LABS: BUN/Creatinine Ratio TNR; Blood Urea Nitrogen TNR mg/dL (7-17); Calcium TNR mg/dL (8.4-10.2); Hemolysis Index TNR
[2019-02-28 14:08] LABS: BUN/Creatinine Ratio 14; Blood Urea Nitrogen 7 mg/dL (7-17); Calcium 8.9 mg/dL (8.4-10.2); Hemolysis Index 19
--- NOTE | 2019-02-28 15:58 | Event Note ---
Date: 02/28/19 patient seen and evaluated, will continue current treatment as outlined.
[2019-02-28] MEDS: NACL 0.9% 1000 ML 1,000 ML IV SCH (16:29)
[2019-02-28] MEDS: HumuLIN R SUB-Q SCH ×3 (16:37→23:09)
[2019-02-28] MEDS: HumaLOG SUB-Q SCH (16:41)
--- NOTE | 2019-02-28 18:13 | Event Note ---
Date: 02/28/19 Patient down-graded to floor. Will cancel ICU consult. Please call if any questions.
[2019-02-28 21:56] LABS: BUN/Creatinine Ratio 20; Blood Urea Nitrogen 6 mg/dL (7-17); Calcium 8.7 mg/dL (8.4-10.2); Hemolysis Index 12
[2019-03-01] MEDS: HumuLIN R SUB-Q SCH ×2 (02:22→05:08)
[2019-03-01 06:00] LABS: Hematocrit 36.9 % (30.3-42.9); Hemoglobin 12.7 gm/dl (10.1-14.3); Mean Corpuscular HGB Conc 35 % (30-34); Mean Corpuscular Volume 96 fl (79-97); Platelet Count 240 K/mm3 (140-440); Red Blood Count 3.85 M/mm3 (3.65-5.03); Red Cell Distribution Width 13.1 % (13.2-15.2)
[2019-03-01 06:20] LABS: BUN/Creatinine Ratio 17; Blood Urea Nitrogen 5 mg/dL (7-17); Calcium 8.4 mg/dL (8.4-10.2); Hemolysis Index 6
[2019-03-01] MEDS: HumaLOG SUB-Q SCH ×4 (07:34→22:07)
[2019-03-01] MEDS: LOVENOX SUB-Q SCH (09:13)
[2019-03-01] MEDS: HABITROL TD SCH (09:13)
[2019-03-01] MEDS: ZOFRAN IV PRN ×2 (09:16→14:35)
[2019-03-01] MEDS: SODIUM CHLORIDE FLUSH SYRINGE 10 ML IV SCH ×2 (10:00→22:04)
[2019-03-01 14:50] LABS: Bilirubin,Urine NEG (Negative); Blood,Urine NEG (Negative); Color,Urine Yellow (Yellow); Mucus,Urine FEW /HPF; Protein,Urine <15 mg/dL mg/dL (Negative); Urobilinogen,Urine < 2.0 mg/dL (<2.0)
[2019-03-01 14:57] LABS: Amphetamine Screen,Urine PRESUMPTIVE NEGATIVE; Benzodiazepines Screen,Urine PRESUMPTIVE NEGATIVE; Cocaine Screen,Urine PRESUMPTIVE NEGATIVE; Methadone Screen,Urine PRESUMPTIVE NEGATIVE; Opiate Screen,Urine PRESUMPTIVE NEGATIVE
--- NOTE | 2019-03-01 15:23 | Progress Note ---
Assessment and Plan - Patient Problems (1) Nausea & vomiting Current Visit: Yes Status: Acute Plan to address problem: Secondary to DKA. Continue to follow electrolytes supportive care with fluids. (2) Acute alteration in mental status Current Visit: Yes Status: Acute Plan to address problem: Secondary to metabolic encephalopathy has resolved. (3) DKA (diabetic ketoacidoses) Current Visit: Yes Status: Acute Plan to address problem: DKA has been corrected with insulin. I think patient most likely noncompliant with insulin. Patient has poor historian when it comes to ask in about insulin doses. She responded well to the reinstitution of insulin clinically. No longer DKA no longer encephalopathic still has some nausea. We'll advance diet. (4) Abdominal pain Current Visit: No Status: Resolved Qualifiers: Abdominal location: left lower quadrant Qualified Code(s): R10.32 - Left lower quadrant pain (5) Dehydration Current Visit: No Status: Acute Plan to address problem: Secondary to DKA resolving with aggressive volume replacement. Subjective Date of service: 03/01/19 Principal diagnosis: nausea vomiting Interval history: She still has problem with nausea vomiting. Attempting to eat and advance diet. Patient could not tolerate applesauce today. Originally presented with gap of 32 blood sugar greater than 500. Patient now blood sugar much better control 171 137.12. Objective - Constitutional Vitals: Vital Signs - 12hr 03/01/19 03/01/19 06:09 12:30 Temperature 98.0 F 98.2 F Pulse Rate 93 H 84 Respiratory 16 20 Rate Blood Pressure 99/71 113/88 O2 Sat by Pulse 96 100 Oximetry General appearance: Present: no acute distress, well-nourished - EENT Eyes: PERRL, EOM intact ENT: hearing intact, clear oral mucosa Ears: bilateral: normal - Neck Neck: supple, normal ROM - Respiratory Respiratory effort: normal Respiratory: bilateral: CTA - Breasts Breasts: normal - Cardiovascular Rhythm: regular Heart Sounds: Present: S1 & S2. Absent: gallop, rub Extremities: pulses intact, No edema, normal color, Full ROM - Gastrointestinal General gastrointestinal: Present: soft, non-tender, non-distended, normal bowel sounds - Genitourinary Female genitourinary: normal - Integumentary Integumentary: clear, warm, dry - Musculoskeletal Musculoskeletal: 1, strength equal bilaterally - Neurologic Neurologic: moves all extremities - Psychiatric Psychiatric: memory intact, appropriate mood/affect, intact judgment & insight - Labs CBC & Chem 7: 03/01/19 05:41 03/01/19 05:41 Labs: Abnormal lab results 02/28/19 02/28/19 02/28/19 Range/Units 15:59 16:47 18:28 MCH (28-32) pg MCHC (30-34) % RDW (13.2-15.2) % Potassium (3.6-5.0) mmol/L Carbon Dioxide (22-30) mmol/L BUN (7-17) mg/dL Creatinine (0.7-1.2) mg/dL Glucose (65-100) mg/dL POC Glucose 116 H 139 H 171 H (70-105) Urine WBC (Auto) (0.0-6.0) /HPF 02/28/19 02/28/19 03/01/19 Range/Units 20:57 21:20 05:12 MCH (28-32) pg MCHC (30-34) % RDW (13.2-15.2) % Potassium (3.6-5.0) mmol/L Carbon Dioxide 18 L (22-30) mmol/L BUN 6 L (7-17) mg/dL Creatinine 0.3 L (0.7-1.2) mg/dL Glucose 129 H (65-100) mg/dL POC Glucose 134 H 112 H (70-105) Urine WBC (Auto) (0.0-6.0) /HPF 03/01/19 03/01/19 03/01/19 Range/Units 05:41 05:41 11:41 MCH 33 H (28-32) pg MCHC 35 H (30-34) % RDW 13.1 L (13.2-15.2) % Potassium 3.3 L (3.6-5.0) mmol/L Carbon Dioxide 20 L (22-30) mmol/L BUN 5 L (7-17) mg/dL Creatinine 0.3 L (0.7-1.2) mg/dL Glucose 118 H (65-100) mg/dL POC Glucose 270 H (70-105) Urine WBC (Auto) (0.0-6.0) /HPF 03/01/19 Range/Units 14:15 MCH (28-32) pg MCHC (30-34) % RDW (13.2-15.2) % Potassium (3.6-5.0) mmol/L Carbon Dioxide (22-30) mmol/L BUN (7-17) mg/dL Creatinine (0.7-1.2) mg/dL Glucose (65-100) mg/dL POC Glucose (70-105) Urine WBC (Auto) 10.0 H (0.0-6.0) /HPF
[2019-03-01 15:25] LABS: Cannabinoid Screen,Urine PRESUMPTIVE POSITIVE
[2019-03-01] MEDS: PROTONIX IV SCH (16:21)
[2019-03-01] MEDS: NACL 0.9% 1000 ML 1,000 ML IV SCH (18:04)
[2019-03-02] MEDS: NACL 0.9% 1000 ML 1,000 ML IV SCH ×2 (05:36→17:55)
[2019-03-02] MEDS: HumaLOG SUB-Q SCH ×4 (08:38→22:40)
[2019-03-02] MEDS: HABITROL TD SCH (10:27)
[2019-03-02] MEDS: LOVENOX SUB-Q SCH (10:27)
[2019-03-02] MEDS: SODIUM CHLORIDE FLUSH SYRINGE 10 ML IV SCH ×2 (10:27→22:41)
[2019-03-02] MEDS: PROTONIX IV SCH (10:27)
--- NOTE | 2019-03-02 14:41 | Progress Note ---
Assessment and Plan - Patient Problems (1) Nausea & vomiting Current Visit: Yes Status: Acute Plan to address problem: Resolving still from DKA. We'll give Zofran supportive care will try to advance diet to clear liquid diet today. If patient is tolerating diabetic diet a.m. stable for discharge. (2) Acute alteration in mental status Current Visit: Yes Status: Acute Plan to address problem: Secondary to metabolic encephalopathy has resolved. (3) DKA (diabetic ketoacidoses) Current Visit: Yes Status: Acute Plan to address problem: DKA has resolved. Patient gap is normal no further has any acidosis. Patient's blood sugars gone from 582 to consistently 1 7200. Chem dose titrate this as outpatient basis. Patient no longer acidotic. (4) Abdominal pain Current Visit: No Status: Resolved Qualifiers: Abdominal location: left lower quadrant Qualified Code(s): R10.32 - Left lower quadrant pain (5) Dehydration Current Visit: No Status: Acute Plan to address problem: Secondary to DKA resolving with aggressive volume replacement. History Interval history: A dennis states nausea is better. Still had an episode of nausea weakness today much improved. Anticipate discharge in the a.m. Hospitalist Physical - Constitutional Vitals: Temp Pulse Resp BP Pulse Ox 98.5 F 96 H 16 112/78 100 03/02/19 11:34 03/02/19 11:34 03/02/19 11:34 03/02/19 11:34 03/02/19 11:34 General appearance: Present: no acute distress, well-nourished - EENT Eyes: Present: PERRL, EOM intact ENT: hearing intact, clear oral mucosa, dentition normal - Neck Neck: Present: supple - Respiratory Respiratory effort: normal Respiratory: bilateral: CTA - Cardiovascular Rhythm: regular - Extremities Extremities: no ischemia, pulses intact, No edema, normal temperature, normal color Extremity abnormal: edema Peripheral Pulses: within normal limits - Abdominal General gastrointestinal: soft, non-tender, tender, normal bowel sounds, no hepatomegaly, no splenomegaly - Integumentary Integumentary: Present: clear, warm, dry - Psychiatric Psychiatric: appropriate mood/affect, intact judgment & insight, memory intact - Neurologic Neurologic: CNII-XII intact, moves all extremities Results - Labs CBC & Chem 7: 03/01/19 05:41 03/01/19 05:41 Labs: Laboratory Last Values WBC 7.9 K/mm3 (4.5-11.0) 03/01/19 05:41 RBC 3.85 M/mm3 (3.65-5.03) 03/01/19 05:41 Hgb 12.7 gm/dl (10.1-14.3) 03/01/19 05:41 Hct 36.9 % (30.3-42.9) 03/01/19 05:41 MCV 96 fl (79-97) 03/01/19 05:41 MCH 33 pg (28-32) H 03/01/19 05:41 MCHC 35 % (30-34) H 03/01/19 05:41 RDW 13.1 % (13.2-15.2) L 03/01/19 05:41 Plt Count 240 K/mm3 (140-440) 03/01/19 05:41 Lymph % (Auto) 25.0 % (13.4-35.0) 02/28/19 03:27 [place] % (Auto) 5.2 % (0.0-7.3) 02/28/19 03:27 Eos % (Auto) 0.2 % (0.0-4.3) 02/28/19 03:27 Baso % (Auto) 1.0 % (0.0-1.8) 02/28/19 03:27 Lymph # 1.8 K/mm3 (1.2-5.4) 02/28/19 03:27 [place] # 0.4 K/mm3 (0.0-0.8) 02/28/19 03:27 Eos # 0.0 K/mm3 (0.0-0.4) 02/28/19 03:27 Baso # 0.1 K/mm3 (0.0-0.1) 02/28/19 03:27 Seg Neutrophils % 68.6 % (40.0-70.0) 02/28/19 03:27 Seg Neutrophils # 4.9 K/mm3 (1.8-7.7) 02/28/19 03:27 VBG pH 7.150 (7.320-7.420) L* 02/28/19 03:27 Sodium 139 mmol/L (137-145) 03/01/19 05:41 Potassium 3.3 mmol/L (3.6-5.0) L 03/01/19 05:41 Chloride 106.0 mmol/L (98-107) 03/01/19 05:41 Carbon Dioxide 20 mmol/L (22-30) L 03/01/19 05:41 16 mmol/L 03/01/19 05:41 BUN 5 mg/dL (7-17) L 03/01/19 05:41 0.3 mg/dL (0.7-1.2) L 03/01/19 05:41 Estimated GFR > 60 ml/min 03/01/19 05:41 17 % 03/01/19 05:41 Glucose 118 mg/dL (65-100) H 03/01/19 05:41 POC Glucose 208 (70-105) H 03/02/19 11:19 13.3 % (4-6) H 02/28/19 07:22 Calcium 8.4 mg/dL (8.4-10.2) 03/01/19 05:41 Phosphorus 1.80 mg/dL (2.5-4.5) L D 02/28/19 07:22 Magnesium 2.00 mg/dL (1.7-2.3) 02/28/19 07:22 1.70 mg/dL (0.1-1.2) H 02/28/19 03:27 0.5 mg/dL (0-0.2) H 02/28/19 03:27 1.2 mg/dL 02/28/19 03:27 AST 26 units/L (5-40) 02/28/19 03:27 ALT 38 units/L (7-56) 02/28/19 03:27 180 units/L (35-129) H 02/28/19 03:27 8.0 g/dL (6.3-8.2) 02/28/19 03:27 4.7 g/dL (3.9-5) 02/28/19 03:27 1.4 % 02/28/19 03:27 14 units/L (13-60) 02/28/19 03:27 HCG, Qual Negative (Negative) 02/28/19 03:27 Yellow (Yellow) 03/01/19 14:15 Slightly-cloudy (Clear) 03/01/19 14:15 6.0 (5.0-7.0) 03/01/19 14:15 Ur Specific [place] 1.027 (1.003-1.030) 03/01/19 14:15 <15 mg/dl mg/dL (Negative) 03/01/19 14:15 >=500 mg/dL (Negative) 03/01/19 14:15 80 mg/dL (Negative) 03/01/19 14:15 Neg (Negative) 03/01/19 14:15 Neg (Negative) 03/01/19 14:15 Neg (Negative) 03/01/19 14:15 < 2.0 mg/dL (<2.0) 03/01/19 14:15 Ur Leukocyte Esterase Tr (Negative) 03/01/19 14:15 10.0 /HPF (0.0-6.0) H 03/01/19 14:15 5.0 /HPF (0.0-6.0) 03/01/19 14:15 U Epithel Cells (Auto) 5.0 /HPF (0-13.0) 03/01/19 14:15 Few /HPF 03/01/19 14:15 Salicylates < 0.3 mg/dL (2.8-20.0) L 02/28/19 05:32 Presumptive negative 03/01/19 14:15 Presumptive negative 03/01/19 14:15 Acetaminophen < 5.0 ug/mL (10.0-30.0) L 02/28/19 05:32 Ur Barbiturates Screen Presumptive negative 03/01/19 14:15 Ur Phencyclidine Scrn Presumptive negative 03/01/19 14:15 Ur Amphetamines Screen Presumptive negative 03/01/19 14:15 U Benzodiazepines Scrn Presumptive negative 03/01/19 14:15 Presumptive negative 03/01/19 14:15 U Marijuana (THC) Screen Presumptive positive 03/01/19 14:15 Disclamer 03/01/19 14:15 Plasma/Serum Alcohol < 0.01 % (0-0.07) 02/28/19 05:32 Active Medications - Current Medications Current Medications: Generic Name Dose Route Start Last Admin Trade Name Freq PRN Reason Stop Dose Admin Acetaminophen 650 mg 02/28/19 06:08 Tylenol PO Q4H PRN Pain MILD(1-3)/Fever >100.5/FRANCES Dextrose 0 ml 02/28/19 03:27 D50w (25gm) Syringe IV PRN PRN Hypoglycemia Dextrose 50 ml 02/28/19 15:48 D50w (25gm) Syringe IV PRN PRN Hypoglycemia Enoxaparin Sodium 40 mg 02/28/19 10:00 03/02/19 10:27 Lovenox SUB-Q 40 mg QDAY KATIE Administration Sodium Chloride 1,000 mls @ 75 mls/hr 02/28/19 16:00 03/02/19 05:36 Nacl 0.9% 1000 Ml IV 75 mls/hr DIRECT KATIE Administration Insulin Human Isoph/Insulin Regular 25 unit 02/28/19 17:00 03/02/19 08:38 Humulin 70/30 SUB-Q 25 unit BIDDIAB KATIE Administration Insulin Human Lispro 0 unit 03/01/19 11:30 03/02/19 13:26 Humalog SUB-Q 3 unit ACHS KATIE Administration Protocol Nicotine 14 mg 02/28/19 10:00 03/02/19 10:27 Habitrol TD Not Given QDAY KATIE Ondansetron HCl 4 mg 02/28/19 15:57 03/01/19 14:35 Zofran IV 4 mg Q4H PRN Administration Nausea And Vomiting Pantoprazole Sodium 40 mg 03/01/19 16:00 03/02/19 10:27 Protonix IV 40 mg QDAY KATIE Administration Sodium Chloride 10 ml 02/28/19 10:00 03/02/19 10:27 Sodium Chloride Flush Syringe 10 Ml IV 10 ml BID KATIE Administration Sodium Chloride 10 ml 02/28/19 06:08 Sodium Chloride Flush Syringe 10 Ml IV PRN PRN LINE FLUSH Nutrition/Malnutrition Assess - Dietary Evaluation Nutrition/Malnutrition Findings: Nutrition Notes Start: 03/01/19 15:01 Freq: Status: Active Protocol: Document 03/01/19 15:01 PACO (Rec: 03/01/19 15:08 PACO [id number]) Nutrition Notes Need for Assessment generated from: MD Order,inspector printed circuit boards Initial or Follow up Assessment Current Diagnosis Diabetes Other Pertinent Diagnosis DKA Current Diet Consistent CHO Labs/Tests A1C 13.3 Height 5 ft 8 in Weight 81.647 kg [place] Body Weight (kg) 63.63 BMI 27.3 Intake Prior to Admission Poor Subjective/Other Information RD consulted for diet education; pt also screened for new onset of DM (pt diagnosed with DM in 2012). She reports that she has been working too much and has not been paying attention to her BS. She does not check BS at home, but takes medications as prescribed. She does not adhere to CHO-controlled diet either. Her appetite is poor right now likely sec to DKA. She does not like Glucerna or any other "diet" foods. Burn Absent Trauma Absent GI Symptoms Nausea,Vomiting Current % PO Poor (25-49%) #1 Nutrition Diagnosis Inadequate oral intake Etiology DKA As Evidenced by Signs and Symptoms pt consuming <50% of meals at this time Is patient on ventilator? No Is Patient Ambulatory and/or Out of Bed No REE-([facility]-confined to bed) 8920.244 [facility] Additional Notes Pro needs 0.8-1g/k-82g/ day Fluid needs 1ml/kcal Nutrition Intervention Change Diet Order: Continue current diet order Teaching Recipient Patient Learning Readiness Fair Teaching Methods Discussion,Handout Response to Teaching Reinforcement needed Education Handouts Provided Hemoglobin A1C and Blood Sugar Control Carbohydrate Counting for People with Diabetes / Food Sources of Carbohydrates Barriers to Learning Motivation,Social RD phone number provided Yes Patient aware of follow up options Yes Actions To Overcome Barriers Other Goal #1 Improved BG control Goal #2 Adherence to CHO-controlled diet Goal #3 PO tolerance Anticipated Discharge Needs: CHO-controlled diet Follow-Up By: 03/05/19 Additional Comments F/U: intakes
[2019-03-02] MEDS ORDERED: MIRALAX 3350 PO PRN (23:11)
[2019-03-02] MEDS ORDERED: DULCOLAX PR PRN (23:11)
[2019-03-03 05:07] VITALS: BP 120/81
[2019-03-03] MEDS: NACL 0.9% 1000 ML 1,000 ML IV SCH (06:34)
[2019-03-03] MEDS: ZOFRAN IV PRN (08:34)
[2019-03-03] MEDS: SODIUM CHLORIDE FLUSH SYRINGE 10 ML IV SCH (09:04)
[2019-03-03] MEDS: PROTONIX IV SCH (09:04)
[2019-03-03] MEDS: LOVENOX SUB-Q SCH (09:07)
[2019-03-03] MEDS: HumaLOG SUB-Q SCH ×2 (09:08→13:22)
[2019-03-03] MEDS: COLACE PO SCH ×2 (09:13)
[2019-03-03] MEDS: HABITROL TD SCH (09:19)
[2019-03-03] MEDS ORDERED: PROTONIX PO SCH (10:00)
--- NOTE | 2019-03-03 13:02 | Discharge Summary ---
Providers - Providers Date of Admission: 02/28/19 06:08 Date of discharge: 03/03/19 Attending physician: ERON NATARAJAN 02/28/19 06:10 Consult to Dietitian/Nutrition [CONS] Routine Physician Instructions: Reason For Exam: Reason for Consult: Diet education 03/02/19 08:54 Physical Therapy Evaluation and Treat [CONS] Routine Comment: Reason For Exam: weakness [facility] Reason for admission: Diabetic ketoacidosis/metabolic encephalopathy/severe dehydration Condition: Stable Pertinent studies: CT abdomen and pelvis; no acute abnormality noted Head CT without contrast; Chest x-ray; no acute abnormality noted Hemoglobin A1c 13.3 Hospital course: 33-year-old woman with history of insulin-dependent diabetes, previous TIA. Admitted through emergency room with altered level of consciousness nausea vomiting and not feeling well with severe dehydration, initial workup is consistent with diabetic ketoacidosis and severe metabolic acidosis Patient was started on DKA protocol, on insulin drip and vigorous IV hydration, and blood sugars were reasonable level, insulin to discontinue transition to long-acting insulin, rigorous IV hydration, patient's hemoglobin A1c is 13.3, patient received diabetic education and nutrition consultation Blood sugars closely monitored medications optimized Patient's symptoms significantly improved Patient counseled the importance of adhering to the treatment plan and follow-up visits, verbalized understanding Smoking cessation counseling, advised nicotine patch, patient strongly advised to quit recreational drug use The patient is comfortable in no new complaints vital signs stable physical examination unremarkable Blood sugars are moderately controlled --DKA (diabetic ketoacidoses) Current Visit: Yes Status: Acute Plan to address problem: DKA has resolved. Patient's A gap and acidosis resolved. Blood sugars improved from 582 to consistently 170s and 180s. Accu-Chek sliding scale coverage and ADA diet, long-acting insulin Hemoglobin A1c 13.3, and advised to see private security compliance specialist upon discharge --Hypokalemia/hypophosphatemia Corrected , closely monitor electrolytes -- Nausea & vomiting Current Visit: Yes Status: Acute . Plan to address problem: Present on admission, probably secondary to DKA and mild gastroparesis Symptoms resolved, supportive care --Acute metabolic encephalopathy; present on admission Current Visit: Yes Status: Acute Plan to address problem: Secondary to very high sugars , acidosis encephalopathy has resolved. -- Abdominal pain Current Visit: No Status: Resolved Resolved, CT abdomen and pelvis no acute abnormality noted --Severe Dehydration Current Visit: No Status: Acute Plan to address problem: Secondary to DKA , advised plenty of oral fluids and aggressive volume replacement. --ongoing tobacco use/substance abuse; smoking cessation counseling, nicotine patch as needed strongly advised to quit recreational drug use Patient is stable at discharge Disposition: DC-01 TO HOME OR SELFCARE Time spent for discharge: 32 min Core Measure Documentation - Palliative Care Palliative Care/ Comfort Measures: Not Applicable - Core Measures Any of the following diagnoses?: none Exam - Constitutional Vitals: Temp Pulse Resp BP Pulse Ox 97.8 F 85 16 120/81 98 03/03/19 05:02 03/03/19 05:02 03/03/19 05:02 03/03/19 05:02 03/03/19 05:02 General appearance: Present: no acute distress, well-nourished - EENT Eyes: Present: PERRL, EOM intact - Neck Neck: Present: supple, normal ROM - Respiratory Respiratory effort: normal Respiratory: bilateral: diminished, negative: rales, rhonchi, wheezing - Cardiovascular Rhythm: regular Heart Sounds: Present: S1 & S2 - Extremities Extremities: no ischemia, No edema - Abdominal General gastrointestinal: Present: soft, non-tender, non-distended, normal bowel sounds - Integumentary Integumentary: Present: clear, warm - Musculoskeletal Musculoskeletal: strength equal bilaterally - Psychiatric Psychiatric: appropriate mood/affect, cooperative - Neurologic Neurologic: moves all extremities Plan Activity: no restrictions Diet: diabetic Special Instructions: smoking cessation Additional Instructions: Patient takes Novolin 7030, 30 units twice a day. Advised to continue the same dose, ajust as needed. Smoking cessation Follow up with: ELENI CALDWELL MD [Primary Care Provider] - 7 Days
== END 2019-03-03 13:26 | disposition home or self-care (01) | DRG 637 ==
LOC: ED 02:54 → SUATTDRO 02:54 → CC1 06:08 → 3A 17:25
PROVIDERS: ADMIT Internal Medicine; ATTEND Internal Medicine
DX: E10.10 Type 1 diabetes mellitus with ketoacidosis without coma (principal); G93.41 Metabolic encephalopathy; E86.0 Dehydration; F17.200 Nicotine dependence, unspecified, uncomplicated; F12.10 Cannabis abuse, uncomplicated; Z79.4 Long term (current) use of insulin; Z86.73 Personal history of transient ischemic attack (TIA), and cerebral infarction without residual deficits; Z72.89 Other problems related to lifestyle; Z71.6 Tobacco abuse counseling
CPT/HCPCS: 36415; 70450; 71045; 74177; 80048; 80076; 80307; 80320; 81001; 82805; 82962; 83036; 83690; 83735; 84100; 84703; 85025; 85027; 87040; 87086; 87116; 93005; 93010; 99406; G0378; C9113; G0480; J1650; J1815; J2405; J7030; Q9967

== ENCOUNTER 2019-07-11 06:48 | Emergency (ER) | payer OTHER ==
[2019-07-11 10:11] LABS: Basophils % (Auto) 0.9 % (0.0-1.8); Eosinophils % (Auto) 0.1 % (0.0-4.3); Hematocrit 42.2 % (30.3-42.9); Hemoglobin 14.5 gm/dl (10.1-14.3); Lymphocytes # (Auto) 0.8 K/mm3 (1.2-5.4); Mean Corpuscular HGB Conc 34 % (30-34); Mean Corpuscular Volume 93 fl (79-97); Monocytes # (Auto) 0.5 K/mm3 (0.0-0.8); Monocytes % (Auto) 14.7 % (0.0-7.3); Platelet Count 248 K/mm3 (140-440); Red Blood Count 4.53 M/mm3 (3.65-5.03); Red Cell Distribution Width 12.9 % (13.2-15.2)
[2019-07-11 10:22] LABS: BUN/Creatinine Ratio 28; Blood Urea Nitrogen 11 mg/dL (7-17); Calcium 9.7 mg/dL (8.4-10.2); Hemolysis Index 17
[2019-07-11] MEDS ORDERED: SODIUM CHLORIDE 0.9% 1000 ML 1,000 ML IV ONE (10:35)
[2019-07-11] MEDS ORDERED: KETOROLAC 30 MG/1 ML INJ IV STA (10:35)
[2019-07-11] MEDS ORDERED: ONDANSETRON 4 MG/2 ML INJ IV STA (10:35)
--- NOTE | 2019-07-11 11:28 | Emergency Department Report ---
ED General Adult HPI - General Chief complaint: Upper Respiratory Infection Stated complaint: FLU LIKE SYMPTOMS Time Seen by Provider: 07/11/19 10:29 Source: patient Mode of arrival: Ambulatory Limitations: No Limitations - History of Present Illness Initial comments: 33-year-old -Citizen Of [place] female since emergency department complaining of a 3-4 nausea and diarrhea associated with a 3 to four-day history of coughing, shortness of breath, diffuse myalgia, fever sensations and fatigue. She reports no hemoptysis, hematemesis and hematochezia. She denies any foreign travel or known sick contacts. Has been taken her insulin for the most part as prescribed but has missed today. -: Gradual, days(s), week(s) Radiation: non-radiation Quality: aching Consistency: constant Improves with: none Worsens with: none Associated Symptoms: cough, fever/chills, headaches, malaise, nausea/vomiting, weakness. denies: confusion - Related Data Previous Rx's Medication Instructions Recorded Last Taken Type Insulin NPH Hum/Reg Insulin Hm 30 units SUB-Q BID #1 vial 04/04/19 Unknown Rx [Novolin 70-30 100 Unit/ml Vial] Nicotine [Habitrol] 14 mg TD QDAY #30 patch 04/04/19 Unknown Rx Temazepam [Restoril] 15 mg PO QHS #7 capsule 04/04/19 Unknown Rx Ketorolac [Toradol] 10 mg PO Q6H PRN #15 tablet 07/11/19 Unknown Rx Ondansetron [Zofran ODT TAB] 8 mg PO Q12HR #14 tab.rapdis 07/11/19 Unknown Rx guaiFENesin/CODEINE [Robitussin AC] 5 ml PO Q6H PRN #120 ml 07/11/19 Unknown Rx Allergies Allergy/AdvReac Type Severity Reaction Status Date / Time No Known Allergies Allergy Verified 04/02/19 17:59 ED Review of Systems ROS: Stated complaint: FLU LIKE SYMPTOMS Other details as noted in HPI Comment: All other systems reviewed and negative ED Past Medical Hx - Past Medical History Previous Medical History?: Yes Hx Congestive Heart Failure: No Hx Diabetes: Yes Hx Asthma: No Hx COPD: No - Surgical History Past Surgical History?: Yes Additional Surgical History: 3 c-sections - Social History Smoking Status: Never Smoker Substance Use Type: None - Medications Home Medications: Home Medications Medication Instructions Recorded Confirmed Last Taken Type Insulin NPH Hum/Reg Insulin Hm 30 units SUB-Q BID #1 vial 04/04/19 Unknown Rx [Novolin 70-30 100 Unit/ml Vial] Nicotine [Habitrol] 14 mg TD QDAY #30 patch 04/04/19 Unknown Rx Temazepam [Restoril] 15 mg PO QHS #7 capsule 04/04/19 Unknown Rx Ketorolac [Toradol] 10 mg PO Q6H PRN #15 tablet 07/11/19 Unknown Rx Ondansetron [Zofran ODT TAB] 8 mg PO Q12HR #14 tab.rapdis 07/11/19 Unknown Rx guaiFENesin/CODEINE [Robitussin AC] 5 ml PO Q6H PRN #120 ml 07/11/19 Unknown Rx ED Physical Exam - General Limitations: No Limitations General appearance: alert, in no apparent distress - Head Head exam: Present: atraumatic, normocephalic - Eye Eye exam: Present: normal appearance, PERRL, EOMI - ENT ENT exam: Present: normal exam, mucous membranes moist - Neck Neck exam: Present: normal inspection, full ROM. Absent: tenderness - Respiratory Respiratory exam: Present: normal lung sounds bilaterally. Absent: respiratory distress, wheezes, rales - Cardiovascular Cardiovascular Exam: Present: normal rhythm, tachycardia. Absent: systolic murmur, diastolic murmur, rubs, gallop - GI/Abdominal GI/Abdominal exam: Present: soft, normal bowel sounds. Absent: distended, tenderness, guarding, hyperactive bowel sounds, hypoactive bowel sounds - Extremities Exam Extremities exam: Present: normal inspection, normal capillary refill - Back Exam Back exam: Present: normal inspection. Absent: CVA tenderness (R), CVA tenderness (L) - Neurological Exam Neurological exam: Present: alert, oriented X3, CN II-XII intact, normal gait - Psychiatric Psychiatric exam: Present: normal affect, normal mood - Skin Skin exam: Present: warm, dry, intact, normal color. Absent: rash ED Course Vital Signs 07/11/19 07/11/19 07/11/19 06:53 10:36 10:45 Temperature 98.6 F Pulse Rate 121 H 108 H 107 H Respiratory 18 16 19 Rate Blood Pressure 93/65 98/68 O2 Sat by Pulse 99 100 99 Oximetry 07/11/19 07/11/19 07/11/19 11:00 11:19 11:25 Temperature Pulse Rate 102 H 110 H Respiratory 9 L 23 18 Rate Blood Pressure 91/60 91/60 O2 Sat by Pulse 74 L 100 Oximetry 07/11/19 07/11/19 07/11/19 11:30 11:45 11:55 Temperature Pulse Rate 97 H 101 H Respiratory 19 22 16 Rate Blood Pressure 103/76 119/81 O2 Sat by Pulse 100 Oximetry 07/11/19 07/11/19 07/11/19 12:00 12:33 12:45 Temperature Pulse Rate 106 H 126 H 105 H Respiratory 27 H 23 Rate Blood Pressure 108/76 108/76 104/72 O2 Sat by Pulse 97 Oximetry 07/11/19 07/11/19 13:01 13:15 Temperature Pulse Rate 101 H 101 H Respiratory 19 22 Rate Blood Pressure 108/76 108/76 O2 Sat by Pulse 98 100 Oximetry ED Medical Decision Making - Lab Data Result diagrams: 07/11/19 09:53 07/11/19 09:53 - Radiology Data Radiology results: report reviewed [address] [address] XRay Report Signed Patient: DIOGENES FERNANDEZ MR# : [id number] : 1985 Acct:[id number] Age/Sex: 33 / F ADM Date: 07/11/19 Loc: ED Attending Dr: Ordering Physician: ROB CORDOBA Date of Service: 07/11/19 Procedure(s): XR chest 1V ap Accession Number(s): [id number] cc: ROB CORDOBA Fluoro Time In Minutes: CHEST 1 VIEW 07/11/2019 11:43 AM INDICATION / CLINICAL INFORMATION: cough. COMPARISON: 02/28/2019 FINDINGS: SUPPORT DEVICES: None. HEART / MEDIASTINUM: No significant abnormality. LUNGS / PLEURA: No significant pulmonary or pleural abnormality. No pneumothorax. ADDITIONAL FINDINGS: No significant additional findings. IMPRESSION: 1. No acute findings. Signer Name: Charli Tyler MD Signed: 07/11/2019 1:25 PM Workstation Name: [id number] Transcribed By: JOHAN Dictated By: Charli Tyler MD Electronically Authenticated By: Charli Tyler MD Signed Date/Time: 07/11/191324 DD/ 24 TD/TT: - Medical Decision Making This 33 y/o female patient presents with symptoms suspicious for likely viral upper respiratory infection. Differential includes bacterial pneumonia, sinusitis, allergic rhinitis,. Do not suspect underlying cardiopulmonary process. I considered, but think unlikely, dangerous causes of this patients symptoms to include ACS, CHF or COPD exacerbations, pneumonia, pneumothorax. Patient is nontoxic appearing and not in need of emergent medical intervention. Plan: reassurance, reassessment, over the counter medications, discharge with PCP followup Critical care attestation.: If time is entered above; I have spent that time in minutes in the direct care of this critically ill patient, excluding procedure time. ED Disposition Clinical Impression: Cough, Viral syndrome Disposition: DC-01 TO HOME OR SELFCARE Is pt being admited?: No Does the pt Need Aspirin: No Condition: Stable Instructions: Viral Syndrome (ED) Prescriptions: guaiFENesin/CODEINE [Robitussin AC] 5 ml PO Q6H PRN #120 ml PRN Reason: Cough Ketorolac [Toradol] 10 mg PO Q6H PRN #15 tablet PRN Reason: Pain Ondansetron [Zofran ODT TAB] 8 mg PO Q12HR #14 tab.rapdis Referrals: [facility] [Provider Group] - 3-5 Days
--- NOTE | 2019-07-11 13:29 | XRay Report ---
CHEST 1 VIEW 07/11/2019 11:43 AM INDICATION / CLINICAL INFORMATION: cough. COMPARISON: 02/28/2019 FINDINGS: SUPPORT DEVICES: None. HEART / MEDIASTINUM: No significant abnormality. LUNGS / PLEURA: No significant pulmonary or pleural abnormality. No pneumothorax. ADDITIONAL FINDINGS: No significant additional findings. IMPRESSION: 1. No acute findings. Signer Name: Charli Tyler MD Signed: 07/11/2019 1:25 PM Workstation Name: [id number]
[2019-07-11 16:32] VITALS: BP 111/71
== END 2019-07-11 16:00 | disposition home or self-care (01) ==
LOC: ED 06:48
DX: B34.9 Viral infection, unspecified (principal); E11.9 Type 2 diabetes mellitus without complications
CPT/HCPCS: 36415; 71045; 80048; 82805; 82962; 85025; 93005; 93010; 96361; 96374; 96375; 99284; J1885; J2405; J7030

== ENCOUNTER 2019-09-16 19:52 | Emergency (ER) | payer SELFPAY ==
--- NOTE | 2019-09-16 19:58 | Emergency Department Report ---
Blank Doc - Documentation Documentation: 34-year-old female that presents with abdominal pain with nausea. This initial assessment/diagnostic orders/clinical plan/treatment(s) is/are subject to change based on patient's health status, clinical progression and re- assessment by fellow clinical providers in the ED. Further treatment and workup at subsequent clinical providers discretion. Patient/guardians urged not to elope from the ED as their condition may be serious if not clinically assessed and managed. Initial orders include: 1- Patient sent to [facility] for further evaluation and treatment 2- labs 3- UA
[2019-09-16 20:36] LABS: Basophils # (Auto) 0.1 K/mm3 (0.0-0.1); Eosinophils % (Auto) 0.7 % (0.0-4.3); Hematocrit 36.7 % (30.3-42.9); Hemoglobin 12.6 gm/dl (10.1-14.3); Lymphocytes # (Auto) 3.2 K/mm3 (1.2-5.4); Lymphocytes % (Auto) 45.9 % (13.4-35.0); Mean Corpuscular HGB Conc 34 % (30-34); Mean Corpuscular Volume 93 fl (79-97); Monocytes # (Auto) 0.5 K/mm3 (0.0-0.8); Platelet Count 303 K/mm3 (140-440); Red Blood Count 3.96 M/mm3 (3.65-5.03); Red Cell Distribution Width 12.6 % (13.2-15.2)
[2019-09-16 20:59] LABS: Alanine Aminotransferase 33 units/L (7-56); Albumin 4.2 g/dL (3.9-5); BUN/Creatinine Ratio 43; Blood Urea Nitrogen 13 mg/dL (7-17); Calcium 9.4 mg/dL (8.4-10.2); Hemolysis Index 5
[2019-09-16 21:21] LABS: Bacteria,Urine 2+ /HPF (Negative); Bilirubin,Urine NEG (Negative); Blood,Urine NEG (Negative); Color,Urine Yellow (Yellow); Mucus,Urine 3+ /HPF; Urobilinogen,Urine < 2.0 mg/dL (<2.0)
[2019-09-16] MEDS ORDERED: ONDANSETRON 4 MG/2 ML INJ IV ONE (23:26)
[2019-09-16] MEDS ORDERED: SODIUM CHLORIDE 0.9% 1000 ML 1,000 ML IV ONE (23:26)
[2019-09-16] MEDS ORDERED: DICYCLOMINE 20 MG/2 ML INJ IM ONE (23:26)
[2019-09-16] MEDS ORDERED: POTASSIUM CHLORIDE ER 20 MEQ TAB PO ONE (23:27)
--- NOTE | 2019-09-16 23:49 | Emergency Department Report ---
ED General Adult HPI - General Chief complaint: Abdominal Pain Stated complaint: ABD PAIN/BODY /BRUISE STOMACH Time Seen by Provider: 09/16/19 19:59 Source: patient Mode of arrival: Ambulatory Limitations: No Limitations - History of Present Illness Initial comments: Patient is a 34-year-old female presents to the emergency room with complaints of diarrhea for 3 months. She has associated abdominal cramping. She states that she has not seen anybody for this complaint. She is not taking anything for her symptoms. She denies any fever, vomiting, urinary symptoms, blood or pus in the stool, melena. She denies any recent antibiotics, recent travel, camping. patient has a past medical history of diabetes. She states that she has an IUD for control. - Related Data Previous Rx's Medication Instructions Recorded Last Taken Type Insulin NPH Hum/Reg Insulin Hm 30 units SUB-Q BID #1 vial 04/04/19 Unknown Rx [Novolin 70-30 100 Unit/ml Vial] Nicotine [Habitrol] 14 mg TD QDAY #30 patch 04/04/19 Unknown Rx Temazepam [Restoril] 15 mg PO QHS #7 capsule 04/04/19 Unknown Rx Ketorolac [Toradol] 10 mg PO Q6H PRN #15 tablet 07/11/19 Unknown Rx Ondansetron [Zofran ODT TAB] 8 mg PO Q12HR #14 tab.rapdis 07/11/19 Unknown Rx guaiFENesin/CODEINE [Robitussin AC] 5 ml PO Q6H PRN #120 ml 07/11/19 Unknown Rx Dicyclomine [Bentyl] 20 mg PO Q8HR PRN #14 tablet 09/17/19 Unknown Rx Ondansetron [Zofran Odt] 4 mg PO Q8HR PRN #14 tab.rapdis 09/17/19 Unknown Rx cephALEXin [Keflex] 500 mg PO BID 7 Days #14 cap 09/17/19 Unknown Rx Allergies Allergy/AdvReac Type Severity Reaction Status Date / Time No Known Allergies Allergy Verified 04/02/19 17:59 ED Review of Systems ROS: Stated complaint: ABD PAIN/BODY /BRUISE STOMACH Other details as noted in HPI Comment: All other systems reviewed and negative ED Past Medical Hx - Past Medical History Previous Medical History?: Yes Hx Congestive Heart Failure: No Hx Diabetes: Yes Hx Asthma: No Hx COPD: No - Surgical History Past Surgical History?: Yes Additional Surgical History: 3 c-sections - Social History Smoking Status: Current Every Day Smoker Substance Use Type: None - Medications Home Medications: Home Medications Medication Instructions Recorded Confirmed Last Taken Type Insulin NPH Hum/Reg Insulin Hm 30 units SUB-Q BID #1 vial 04/04/19 Unknown Rx [Novolin 70-30 100 Unit/ml Vial] Nicotine [Habitrol] 14 mg TD QDAY #30 patch 04/04/19 Unknown Rx Temazepam [Restoril] 15 mg PO QHS #7 capsule 04/04/19 Unknown Rx Ketorolac [Toradol] 10 mg PO Q6H PRN #15 tablet 07/11/19 Unknown Rx Ondansetron [Zofran ODT TAB] 8 mg PO Q12HR #14 tab.rapdis 07/11/19 Unknown Rx guaiFENesin/CODEINE [Robitussin AC] 5 ml PO Q6H PRN #120 ml 07/11/19 Unknown Rx Dicyclomine [Bentyl] 20 mg PO Q8HR PRN #14 tablet 09/17/19 Unknown Rx Ondansetron [Zofran Odt] 4 mg PO Q8HR PRN #14 tab.rapdis 09/17/19 Unknown Rx cephALEXin [Keflex] 500 mg PO BID 7 Days #14 cap 09/17/19 Unknown Rx ED Physical Exam - General Limitations: No Limitations General appearance: alert, in no apparent distress - Head Head exam: Present: atraumatic, normocephalic - Eye Eye exam: Present: normal appearance - ENT ENT exam: Present: mucous membranes moist - Respiratory Respiratory exam: Present: normal lung sounds bilaterally. Absent: respiratory distress, wheezes, rales, rhonchi, stridor, chest wall tenderness, accessory muscle use, decreased breath sounds, prolonged expiratory - Cardiovascular Cardiovascular Exam: Present: regular rate, normal rhythm, normal heart sounds. Absent: systolic murmur, diastolic murmur, rubs, gallop - GI/Abdominal GI/Abdominal exam: Present: soft, normal bowel sounds, other (very small ecchymosis to the left abdomen, non tender to palpation, no dailey turners or cullens sign, no murphys or mcburneys point ttp). Absent: distended, tenderness, guarding, rebound, rigid - Neurological Exam Neurological exam: Present: alert, oriented X3 - Psychiatric Psychiatric exam: Present: normal affect, normal mood - Skin Skin exam: Present: warm, dry, intact ED Course Vital Signs 09/16/19 09/17/19 19:58 01:04 Temperature 98.5 F 98.0 F Pulse Rate 115 H 98 H Respiratory 18 16 Rate Blood Pressure 115/78 Blood Pressure 101/66 [Right] O2 Sat by Pulse 97 100 Oximetry ED Medical Decision Making - Lab Data Result diagrams: 09/16/19 20:20 09/16/19 20:20 Lab Results 09/16/19 09/16/19 09/16/19 Range/Units 20:20 20:20 20:20 WBC 6.9 (4.5-11.0) K/mm3 RBC 3.96 (3.65-5.03) M/mm3 Hgb 12.6 (10.1-14.3) gm/dl Hct 36.7 (30.3-42.9) % MCV 93 (79-97) fl MCH 32 (28-32) pg MCHC 34 (30-34) % RDW 12.6 L (13.2-15.2) % Plt Count 303 (140-440) K/mm3 Lymph % (Auto) 45.9 H (13.4-35.0) % [place] % (Auto) 7.0 (0.0-7.3) % Eos % (Auto) 0.7 (0.0-4.3) % Baso % (Auto) 1.0 (0.0-1.8) % Lymph # 3.2 (1.2-5.4) K/mm3 [place] # 0.5 (0.0-0.8) K/mm3 Eos # 0.0 (0.0-0.4) K/mm3 Baso # 0.1 (0.0-0.1) K/mm3 Seg Neutrophils % 45.4 (40.0-70.0) % Seg Neutrophils # 3.1 (1.8-7.7) K/mm3 Sodium 136 L (137-145) mmol/L Potassium 3.5 L (3.6-5.0) mmol/L Chloride 97.0 L (98-107) mmol/L Carbon Dioxide 25 (22-30) mmol/L Anion Gap 18 mmol/L BUN 13 (7-17) mg/dL Creatinine 0.3 L (0.7-1.2) mg/dL Estimated GFR > 60 ml/min BUN/Creatinine Ratio 43 % Glucose 209 H (65-100) mg/dL Calcium 9.4 (8.4-10.2) mg/dL Total Bilirubin 2.00 H (0.1-1.2) mg/dL AST 22 (5-40) units/L ALT 33 (7-56) units/L Alkaline Phosphatase 116 (35-129) units/L Total Protein 6.8 (6.3-8.2) g/dL Albumin 4.2 (3.9-5) g/dL Albumin/Globulin Ratio 1.6 % Lipase 21 (13-60) units/L HCG, Qual Negative (Negative) Urine Color (Yellow) Urine Turbidity (Clear) Urine pH (5.0-7.0) Ur Specific [place] (1.003-1.030) Urine Protein (Negative) mg/dL Urine Glucose (UA) (Negative) mg/dL Urine Ketones (Negative) mg/dL Urine Blood (Negative) Urine Nitrite (Negative) Urine Bilirubin (Negative) Urine Urobilinogen (<2.0) mg/dL Ur Leukocyte Esterase (Negative) Urine WBC (Auto) (0.0-6.0) /HPF Urine RBC (Auto) (0.0-6.0) /HPF U Epithel Cells (Auto) (0-13.0) /HPF Urine Bacteria (Auto) (Negative) /HPF Urine Mucus /HPF 03/03/ Range/Units 20:58 WBC (4.5-11.0) K/mm3 RBC (3.65-5.03) M/mm3 Hgb (10.1-14.3) gm/dl Hct (30.3-42.9) % MCV (79-97) fl MCH (28-32) pg MCHC (30-34) % RDW (13.2-15.2) % Plt Count (140-440) K/mm3 Lymph % (Auto) (13.4-35.0) % [place] % (Auto) (0.0-7.3) % Eos % (Auto) (0.0-4.3) % Baso % (Auto) (0.0-1.8) % Lymph # (1.2-5.4) K/mm3 [place] # (0.0-0.8) K/mm3 Eos # (0.0-0.4) K/mm3 Baso # (0.0-0.1) K/mm3 Seg Neutrophils % (40.0-70.0) % Seg Neutrophils # (1.8-7.7) K/mm3 Sodium (137-145) mmol/L Potassium (3.6-5.0) mmol/L Chloride (98-107) mmol/L Carbon Dioxide (22-30) mmol/L Anion Gap mmol/L BUN (7-17) mg/dL Creatinine (0.7-1.2) mg/dL Estimated GFR ml/min BUN/Creatinine Ratio % Glucose (65-100) mg/dL Calcium (8.4-10.2) mg/dL Total Bilirubin (0.1-1.2) mg/dL AST (5-40) units/L ALT (7-56) units/L Alkaline Phosphatase (35-129) units/L Total Protein (6.3-8.2) g/dL Albumin (3.9-5) g/dL Albumin/Globulin Ratio % Lipase (13-60) units/L HCG, Qual (Negative) Urine Color Yellow (Yellow) Urine Turbidity Slightly-cloudy (Clear) Urine pH 5.0 (5.0-7.0) Ur Specific [place] 1.026 (1.003-1.030) Urine Protein 30 mg/dl (Negative) mg/dL Urine Glucose (UA) 150 (Negative) mg/dL Urine Ketones Tr (Negative) mg/dL Urine Blood Neg (Negative) Urine Nitrite Pos (Negative) Urine Bilirubin Neg (Negative) Urine Urobilinogen < 2.0 (<2.0) mg/dL Ur Leukocyte Esterase Sm (Negative) Urine WBC (Auto) 16.0 H (0.0-6.0) /HPF Urine RBC (Auto) 3.0 (0.0-6.0) /HPF U Epithel Cells (Auto) 10.0 (0-13.0) /HPF Urine Bacteria (Auto) 2+ (Negative) /HPF Urine Mucus 3+ /HPF Vital Signs 09/16/19 09/17/19 19:58 01:04 Temperature 98.5 F 98.0 F Pulse Rate 115 H 98 H Respiratory 18 16 Rate Blood Pressure 115/78 Blood Pressure 101/66 [Right] O2 Sat by Pulse 97 100 Oximetry - Medical Decision Making Patient is a 34-year-old female presents to the emergency room with complaints of diarrhea for 3 months. She has associated abdominal cramping. She states that she has not seen anybody for this complaint. She is not taking anything for her symptoms. She denies any fever, vomiting, urinary symptoms, blood or pus in the stool, melena. She denies any recent antibiotics, recent travel, camping. patient has a past medical history of diabetes. She states that she has an IUD for control. Initial vitals with elevated heart rate which improved upon repeat. On exam no abdominal tenderness to palpation, no guarding, no rebound, no rigidity, no peritoneal signs, normal bowel sounds. La bs with very mild dehydration, patient given 1 L fluids and K-Dur. Blood sugar is stable. Bilirubin is stable, it has been elevated in the past. Patient given Zofran and Bentyl. Patient symptoms improved and she was resting comfortably, patient had no further episodes of nausea or diarrhea after medications. UA shows evidence of UTI. Urine culture sent. Patient given prescription for Zofran, Bentyl, Keflex. advised pt to please increase your water intake. Eat a bland diet. Avoid anything greasy or sugary. Please take medication as prescribed. Follow-up with your primary care doctor. Follow-up with a GI doctor. Return to the emergency room for any new or worsening symptoms. - Differential Diagnosis UTI, gastroenteritis, IBS, colitis, lactose deficiency, gluten intolerance Critical care attestation.: If time is entered above; I have spent that time in minutes in the direct care of this critically ill patient, excluding procedure time. ED Disposition Clinical Impression: Abdominal cramping, Nausea Diarrhea Qualifiers: Diarrhea type: unspecified type Qualified Code(s): R19.7 - Diarrhea, unspecified UTI (urinary tract infection) Qualifiers: Urinary tract infection type: acute cystitis Hematuria presence: without hematuria Qualified Code(s): N30.00 - Acute cystitis without hematuria Disposition: TO HOME OR SELFCARE Is pt being admited?: No Does the pt Need Aspirin: No Condition: Stable Instructions: Urinary Tract Infection in Women (ED), Acute Diarrhea (ED), Abd ominal Pain (ED) Additional Instructions: Increase your water intake. Eat a bland diet. Avoid anything greasy or sugary. Please take medication as prescribed. Follow-up with your primary care doctor. Follow-up with a GI doctor. Return to the emergency room for any new or worsening symptoms. Prescriptions: Dicyclomine [Bentyl] 20 mg PO Q8HR PRN #14 tablet PRN Reason: abdominal cramping cephALEXin [Keflex] 500 mg PO BID 7 Days #14 cap Ondansetron [Zofran Odt] 4 mg PO Q8HR PRN #14 tab.rapdis PRN Reason: Nausea And Vomiting Referrals: ZACARIAS BORJAS MD [Staff Physician] - 2-3 Days [facility] [Outside] - 2-3 Days [facility] [Outside] - 2-3 Days [facility] [Provider Group] - 2-3 Days Time of Disposition: 00:43 Print Language: SWEDISH
[2019-09-17 01:05] VITALS: BP 101/66
== END 2019-09-17 01:06 | disposition home or self-care (01) ==
LOC: ED 19:52
DX: N39.0 Urinary tract infection, site not specified (principal); R19.7 Diarrhea, unspecified; R11.0 Nausea; E11.9 Type 2 diabetes mellitus without complications; F17.200 Nicotine dependence, unspecified, uncomplicated; Z98.890 Other specified postprocedural states; Z79.4 Long term (current) use of insulin; Z79.899 Other long term (current) drug therapy
CPT/HCPCS: 36415; 80053; 81001; 83690; 84703; 85025; 87086; 96361; 96372; 96374; 99283; J0500; J2405; J7030; 87076; 87186

== ENCOUNTER 2020-04-23 08:12 | Inpatient (IN) | payer OTHER ==
[2020-04-23 09:03] LABS: Basophils # (Auto) 0.1 K/mm3 (0.0-0.1); Basophils % (Auto) 1.1 % (0.0-1.8); Eosinophils % (Auto) 0.3 % (0.0-4.3); Hematocrit 37.1 % (30.3-42.9); Hemoglobin 12.5 gm/dl (10.1-14.3); Lymphocytes # (Auto) 1.4 K/mm3 (1.2-5.4); Lymphocytes % (Auto) 28.8 % (13.4-35.0); Mean Corpuscular HGB Conc 34 % (30-34); Mean Corpuscular Volume 94 fl (79-97); Monocytes # (Auto) 0.2 K/mm3 (0.0-0.8); Monocytes % (Auto) 3.3 % (0.0-7.3); Platelet Count 241 K/mm3 (140-440); Red Blood Count 3.93 M/mm3 (3.65-5.03); Red Cell Distribution Width 12.7 % (13.2-15.2)
[2020-04-23 09:28] LABS: Alanine Aminotransferase 33 units/L (7-56); Blood Urea Nitrogen 13 mg/dL (7-17); Calcium 8.6 mg/dL (8.4-10.2); Hemolysis Index 6
[2020-04-23 09:31] LABS: BUN/Creatinine Ratio 33
[2020-04-23] MEDS ORDERED: ONDANSETRON 4 MG/2 ML INJ ONE ×4 (11:00→23:42)
[2020-04-23] MEDS ORDERED: SODIUM CHLORIDE 0.9% 1000 ML 1,000 ML IV ONE ×4 (11:08→15:15)
--- NOTE | 2020-04-23 11:22 | Emergency Department Report ---
ED N/V/D HPI - General Chief complaint: Hyperglycemia Stated complaint: HYPERGLYCEMIA/NAUSEA Time Seen by Provider: 04/23/20 10:46 Source: patient, EMS Mode of arrival: Wheelchair Limitations: No Limitations - History of Present Illness Initial comments: 34-year-old female, history of insulin-dependent diabetes, presents to ED with elevated glucose. Patient states glucose has been elevated since yesterday. States it was 365 at home. She reports nausea and vomiting since earlier this morning. She reports associated diffuse abdominal pain. Patient denies any diarrhea, fever, cough, shortness of breath. MD complaint: nausea, vomiting -: days(s) (1) Description of Vomiting: food contents Associated Abdominal Pain: Yes Location: diffuse Radiation: none Severity: mild Quality: cramping Consistency: intermittent Improves with: none Worsens with: none Associated Symptoms: denies: cough, fever/chills, shortness of breath - Related Data Previous Rx's Medication Instructions Recorded Last Taken Type Insulin NPH Hum/Reg Insulin Hm 30 units SUB-Q BID #1 vial 04/04/19 Unknown Rx [Novolin 70-30 100 Unit/ml Vial] Nicotine [Habitrol] 14 mg TD QDAY #30 patch 04/04/19 Unknown Rx Temazepam [Restoril] 15 mg PO QHS #7 capsule 04/04/19 Unknown Rx Ketorolac [Toradol] 10 mg PO Q6H PRN #15 tablet 07/11/19 Unknown Rx Ondansetron [Zofran ODT TAB] 8 mg PO Q12HR #14 tab.rapdis 07/11/19 Unknown Rx guaiFENesin/CODEINE [Robitussin AC] 5 ml PO Q6H PRN #120 ml 07/11/19 Unknown Rx Dicyclomine [Bentyl] 20 mg PO Q8HR PRN #14 tablet 09/17/19 Unknown Rx Ondansetron [Zofran Odt] 4 mg PO Q8HR PRN #14 tab.rapdis 09/17/19 Unknown Rx cephALEXin [Keflex] 500 mg PO BID 7 Days #14 cap 09/17/19 Unknown Rx Allergies Allergy/AdvReac Type Severity Reaction Status Date / Time No Known Allergies Allergy Verified 04/02/19 17:59 ED Review of Systems ROS: Stated complaint: HYPERGLYCEMIA/NAUSEA Other details as noted in HPI Comment: All other systems reviewed and negative Constitutional: denies: chills, fever Respiratory: denies: cough, shortness of breath Gastrointestinal: abdominal pain, nausea, vomiting. denies: diarrhea ED Past Medical Hx - Past Medical History Hx Congestive Heart Failure: No Hx Diabetes: Yes Hx Asthma: No Hx COPD: No - Surgical History Past Surgical History?: Yes Additional Surgical History: 3 c-sections - Social History Smoking Status: Never Smoker Substance Use Type: None - Medications Home Medications: Home Medications Medication Instructions Recorded Confirmed Last Taken Type Insulin NPH Hum/Reg Insulin Hm 30 units SUB-Q BID #1 vial 04/04/19 Unknown Rx [Novolin 70-30 100 Unit/ml Vial] Nicotine [Habitrol] 14 mg TD QDAY #30 patch 04/04/19 Unknown Rx Temazepam [Restoril] 15 mg PO QHS #7 capsule 04/04/19 Unknown Rx Ketorolac [Toradol] 10 mg PO Q6H PRN #15 tablet 07/11/19 Unknown Rx Ondansetron [Zofran ODT TAB] 8 mg PO Q12HR #14 tab.rapdis 07/11/19 Unknown Rx guaiFENesin/CODEINE [Robitussin AC] 5 ml PO Q6H PRN #120 ml 07/11/19 Unknown Rx Dicyclomine [Bentyl] 20 mg PO Q8HR PRN #14 tablet 09/17/19 Unknown Rx Ondansetron [Zofran Odt] 4 mg PO Q8HR PRN #14 tab.rapdis 09/17/19 Unknown Rx cephALEXin [Keflex] 500 mg PO BID 7 Days #14 cap 09/17/19 Unknown Rx ED Physical Exam - General Limitations: No Limitations General appearance: alert, in no apparent distress - Head Head exam: Present: atraumatic, normocephalic - Eye Eye exam: Present: normal appearance, EOMI - ENT ENT exam: Present: mucous membranes moist - Neck Neck exam: Present: normal inspection - Respiratory Respiratory exam: Present: normal lung sounds bilaterally. Absent: respiratory distress - Cardiovascular Cardiovascular Exam: Present: regular rate, normal rhythm - GI/Abdominal GI/Abdominal exam: Present: soft, tenderness (Mild diffuse), other (Patient is actively vomiting). Absent: distended - Extremities Exam Extremities exam: Present: normal inspection - Neurological Exam Neurological exam: Present: alert, oriented X3 - Psychiatric Psychiatric exam: Present: normal affect, normal mood - Skin Skin exam: Present: warm, dry, intact, normal color ED Course Vital Signs 04/23/20 04/23/20 04/23/20 08:19 10:55 11:00 Temperature 97.7 F Pulse Rate 104 H 97 H 104 H Respiratory 17 15 19 Rate Blood Pressure 100/64 123/72 O2 Sat by Pulse 100 Oximetry 04/23/20 04/23/20 04/23/20 11:08 11:15 11:31 Temperature Pulse Rate 97 H 94 H Respiratory 18 24 20 Rate Blood Pressure 123/72 123/72 O2 Sat by Pulse 100 100 100 Oximetry 04/23/20 04/23/20 04/23/20 11:45 12:00 12:10 Temperature Pulse Rate 102 H Respiratory 22 18 18 Rate Blood Pressure 123/72 120/76 O2 Sat by Pulse 68 L 100 Oximetry 04/23/20 12:15 Temperature Pulse Rate Respiratory 19 Rate Blood Pressure 123/72 O2 Sat by Pulse 100 Oximetry ED Medical Decision Making - Lab Data Result diagrams: 04/23/20 08:35 04/23/20 17:09 - Radiology Data Radiology results: report reviewed, image reviewed - Medical Decision Making 34-year-old female presents to ED with nausea, vomiting, elevated glucose. Patient with active vomiting that appears to be coffee-ground emesis. Labs show evidence of DKA, with glucose of 358, bicarb of 15, VBG 7.20, anion gap 26, with moderate serum ketones present. CT abdomen pelvis shows no acute abdominal pathology. I have intractable nausea and vomiting and has been given several doses of antiemetics. Patient given IV fluids and placed on insulin drip for her DKA. Spoke with hospitalist, Dr. Goodwin, for admission and further management. - Differential Diagnosis DKA, gastritis, dehydration, bowel obstruction Critical Care Time: Yes Critical care time in (mins) excluding proc time.: 35 Critical care attestation.: If time is entered above; I have spent that time in minutes in the direct care of this critically ill patient, excluding procedure time. Critical Care Time: 35 min ED Disposition Clinical Impression: DKA (diabetic ketoacidoses), Gastritis Disposition: OP ADMIT IP TO THIS HOSP Is pt being admited?: Yes Condition: Stable Time of Disposition: 15:06
[2020-04-23] MEDS ORDERED: MORPHINE 4 MG/1 ML INJ ONE (11:30)
[2020-04-23] MEDS ORDERED: ONDANSETRON 4 MG/2 ML INJ IV ONE ×3 (11:41→18:15)
[2020-04-23] MEDS ORDERED: MORPHINE 4 MG/1 ML INJ IV ONE (11:41)
[2020-04-23] MEDS ORDERED: METOCLOPRAMIDE 10 MG/2 ML INJ IV ONE (12:21)
[2020-04-23] MEDS ORDERED: D5W/0.45% NACL/KCL 20 MEQ 20 MEQ/1,000 ML BAG IV SCH ×2 (14:00→21:00)
[2020-04-23] MEDS ORDERED: INSULIN REGULAR, HUMAN 100 UNITS in SODIUM CHLORIDE 0.9% 99 ML IV SCH ×2 (14:00→21:00)
--- NOTE | 2020-04-23 14:39 | Cat Scan Report ---
CT ABDOMEN AND PELVIS WITH CONTRAST HISTORY: Vomiting, abdominal pain COMPARISON: 02/28/2019 TECHNIQUE: Axial CT images were obtained through the abdomen and pelvis after 100 cc of Omnipaque 300 intravenously. Sagittal and coronal reformatted images. All CT scans at this location are performed using CT dose reduction for ALARA by means of automated exposure control. FINDINGS: CT ABDOMEN: Lung Bases: Clear. Liver: No significant abnormality. Biliary: No significant abnormality. Spleen: No significant abnormality. Unenlarged. Pancreas: No significant abnormality. Adrenals: No significant abnormality. Kidneys: No significant abnormality. Lymphatics: No lymphadenopathy. Vasculature: No significant abnormality. Bowel/Peritoneum: No significant abnormality. No free air. No free fluid. Normal appendix. CT PELVIS: : No significant abnormality. IUD is in place. Osseous Structures: No significant abnormality. Additional Findings: None IMPRESSION: No acute abdominal process is identified. No significant change since 02/28/2019 exam. Signer Name: Juan Diego Benjamin Jr, MD Signed: 04/23/2020 2:34 PM Workstation Name: [id number]
[2020-04-23] MEDS ORDERED: HYDROmorphone 1 MG/1 ML INJ IV ONE (14:40)
[2020-04-23] MEDS ORDERED: HYDROmorphone 1 MG/1 ML INJ ONE (14:41)
[2020-04-23] MEDS ORDERED: PANTOPRAZOLE 40 MG INJ IV ONE (15:05)
[2020-04-23 15:11] LABS: Blood Urea Nitrogen 16 mg/dL (7-17); Calcium 8.6 mg/dL (8.4-10.2); Hemolysis Index 42
[2020-04-23 15:14] LABS: BUN/Creatinine Ratio 53
[2020-04-23 16:20] LABS: Blood Urea Nitrogen 15 mg/dL (7-17); Calcium 8.4 mg/dL (8.4-10.2); Hemolysis Index 23
[2020-04-23 16:21] LABS: BUN/Creatinine Ratio 50
[2020-04-23 17:44] LABS: Blood Urea Nitrogen 13 mg/dL (7-17); Hemolysis Index 8
[2020-04-23 17:48] LABS: BUN/Creatinine Ratio 43
--- NOTE | 2020-04-23 19:41 | History and Physical Report ---
History of Present Illness Date of examination: 04/23/20 Date of admission: 04/23/20 17:43 Chief complaint: Abdominal pain and vomiting since a.m. History of present illness: 38-year-old -[place] female with history of diabetes type 1 comes in for nausea and vomiting since this morning. Patient also has epigastric pain. No fever or chills. Patient has been taking insulin from early age. Patient apparently takes 30 units of 70/30 insulin twice a day. Patient also has history of smoking. No fever no coronavirus exposure. No shortness of breath. No chest pain. Some epigastric discomfort present. - Past Medical History --Diabetes: Yes -- Surgical History Past Surgical History?: Yes Additional Surgical History: 3 c-sections - -Social History Smoking Status: Never Smoker Substance Use Type: None -- Family history Htn - Medications Home Medications: Home Medications Medication Instructions Recorded Confirmed Last Taken Type Insulin NPH Hum/Reg Insulin Hm 30 units SUB-Q BID #1 vial 04/04/19 Unknown Rx [Novolin 70-30 100 Unit/ml Vial] Nicotine [Habitrol] 14 mg TD QDAY #30 patch 04/04/19 Unknown Rx Temazepam [Restoril] 15 mg PO QHS #7 capsule 04/04/19 Unknown Rx Ketorolac [Toradol] 10 mg PO Q6H PRN #15 tablet 07/11/19 Unknown Rx Ondansetron [Zofran ODT TAB] 8 mg PO Q12HR #14 tab.rapdis 07/11/19 Unknown Rx guaiFENesin/CODEINE [Robitussin AC] 5 ml PO Q6H PRN #120 ml 07/11/19 Unknown Rx Dicyclomine [Bentyl] 20 mg PO Q8HR PRN #14 tablet 09/17/19 Unknown Rx Ondansetron [Zofran Odt] 4 mg PO Q8HR PRN #14 tab.rapdis 09/17/19 Unknown Rx cephALEXin [Keflex] 500 mg PO BID 7 Days #14 cap 09/17/19 Unknown Rx Review of Systems ROS: Stated complaint: HYPERGLYCEMIA/NAUSEA/vomiting Constitutional no weight loss or weight gain no fever or chills HEENT no sore throat no post nasal drip no diplopia Neck no neck stiffness no lymph gland enlargement Chest and lungs no shortness of breath cough or wheezing CVS no chest pain no diaphoresis no palpitations GI nausea and vomiting since a.m. and epigastric pain which is crampy Genitourinary system no dysuria no flank pain Musculoskeletal system no muscle pains no joint pains [employer] no syncope no seizures Skin no rash no itching Psychiatric no depression no homicidal or suicidal tendencies Hematologic no lymphedema or bruising Endocrine no polydipsia no polyuria no cold intolerance no heat intolerance Medications and Allergies Allergies Allergy/AdvReac Type Severity Reaction Status Date / Time No Known Allergies Allergy Verified 04/02/19 17:59 Home Medications Medication Instructions Recorded Confirmed Last Taken Type Insulin NPH Hum/Reg Insulin Hm 30 units SUB-Q BID #1 vial 04/04/19 Unknown Rx [Novolin 70-30 100 Unit/ml Vial] Nicotine [Habitrol] 14 mg TD QDAY #30 patch 04/04/19 Unknown Rx Temazepam [Restoril] 15 mg PO QHS #7 capsule 04/04/19 Unknown Rx Ketorolac [Toradol] 10 mg PO Q6H PRN #15 tablet 07/11/19 Unknown Rx Ondansetron [Zofran ODT TAB] 8 mg PO Q12HR #14 tab.rapdis 07/11/19 Unknown Rx guaiFENesin/CODEINE [Robitussin AC] 5 ml PO Q6H PRN #120 ml 07/11/19 Unknown Rx Dicyclomine [Bentyl] 20 mg PO Q8HR PRN #14 tablet 09/17/19 Unknown Rx Ondansetron [Zofran Odt] 4 mg PO Q8HR PRN #14 tab.rapdis 09/17/19 Unknown Rx cephALEXin [Keflex] 500 mg PO BID 7 Days #14 cap 09/17/19 Unknown Rx Active Meds: Active Medications Insulin Human Regular 100 (units/ Sodium Chloride) 100 mls @ 1 mls/hr IV TITR KATIE; Protocol Last Titration: 04/23/20 18:51 Dose: 2 units/hr, 2 mls/hr Documented by: Potassium Chloride/Dextrose/Sod Cl (D5w/0.45% Nacl/Kcl 20 Meq) 20 meq in 1,000 mls @ 125 mls/hr IV DIRECT KATIE Last Admin: 04/23/20 16:51 Dose: 125 mls/hr Documented by: Exam - Constitutional Vitals: Temp Pulse Resp BP Pulse Ox 97.7 F 90 15 128/76 100 10/09/20 08:19 04/23/20 18:31 04/23/20 18:31 04/23/20 18:31 04/23/20 18:31 General appearance: Present: no acute distress, well-nourished - EENT Eyes: Present: PERRL ENT: hearing intact, clear oral mucosa - Neck Neck: Present: supple, normal ROM - Respiratory Respiratory effort: normal Respiratory: bilateral: CTA - Cardiovascular Heart rate: 78 Rhythm: regular Heart Sounds: Present: S1 & S2. Absent: rub, click - Extremities Extremities: pulses symmetrical, No edema Peripheral Pulses: within normal limits - Abdominal General gastrointestinal: Present: soft, tender, non-distended, normal bowel sounds Localized gastrointestinal: tender: diffuse Female genitourinary: Present: normal - Integumentary Integumentary: Present: clear, warm, dry - Musculoskeletal Musculoskeletal: gait normal, strength equal bilaterally - Psychiatric Psychiatric: appropriate mood/affect, intact judgment & insight - Neurologic Neurologic: CNII-XII intact, moves all extremities - Allied Health Allied health notes reviewed: nursing, case management Results - Labs CBC & Chem 7: 04/23/20 08:35 04/23/20 17:09 Labs: Laboratory Last Values WBC 4.8 K/mm3 (4.5-11.0) 04/23/20 08:35 RBC 3.93 M/mm3 (3.65-5.03) 04/23/20 08:35 Hgb 12.5 gm/dl (10.1-14.3) 04/23/20 08:35 Hct 37.1 % (30.3-42.9) 04/23/20 08:35 MCV 94 fl (79-97) 04/23/20 08:35 MCH 32 pg (28-32) 04/23/20 08:35 MCHC 34 % (30-34) 04/23/20 08:35 RDW 12.7 % (13.2-15.2) L 04/23/20 08:35 Plt Count 241 K/mm3 (140-440) 04/23/20 08:35 Lymph % (Auto) 28.8 % (13.4-35.0) 04/23/20 08:35 [place] % (Auto) 3.3 % (0.0-7.3) 04/23/20 08:35 Eos % (Auto) 0.3 % (0.0-4.3) 04/23/20 08:35 Baso % (Auto) 1.1 % (0.0-1.8) 04/23/20 08:35 Lymph # (Auto) 1.4 K/mm3 (1.2-5.4) 04/23/20 08:35 [place] # (Auto) 0.2 K/mm3 (0.0-0.8) 04/23/20 08:35 Eos # (Auto) 0.0 K/mm3 (0.0-0.4) 04/23/20 08:35 Baso # (Auto) 0.1 K/mm3 (0.0-0.1) 04/23/20 08:35 Seg Neutrophils % 66.5 % (40.0-70.0) 04/23/20 08:35 Seg Neutrophils # 3.2 K/mm3 (1.8-7.7) 04/23/20 08:35 VBG pH 7.200 (7.320-7.420) L 04/23/20 11:34 Sodium 136 mmol/L (137-145) L 04/23/20 17:09 Potassium 3.8 mmol/L (3.6-5.0) 04/23/20 17:09 Chloride 104.7 mmol/L (98-107) 04/23/20 17:09 Carbon Dioxide 10 mmol/L (22-30) L 04/23/20 17:09 Anion Gap 25 mmol/L 04/23/20 17:09 BUN 13 mg/dL (7-17) 04/23/20 17:09 Creatinine 0.3 mg/dL (0.6-1.2) L 04/23/20 17:09 Estimated GFR > 60 ml/min 04/23/20 17:09 BUN/Creatinine Ratio 43 % 04/23/20 17:09 Glucose 183 mg/dL (65-100) H 04/23/20 17:09 POC Glucose 159 (70-105) H 04/23/20 19:05 Ketones Quantitative Moderate (Negative) 04/23/20 12:45 Calcium 8.0 mg/dL (8.4-10.2) L 04/23/20 17:09 Phosphorus 2.80 mg/dL (2.5-4.5) 04/23/20 08:35 Magnesium 1.90 mg/dL (1.7-2.3) 04/23/20 08:35 Total Bilirubin 2.20 mg/dL (0.1-1.2) H 04/23/20 08:35 AST 21 units/L (5-40) 04/23/20 08:35 ALT 33 units/L (7-56) 04/23/20 08:35 Alkaline Phosphatase 135 units/L (35-129) H 04/23/20 08:35 Total Protein 6.7 g/dL (6.3-8.2) 04/23/20 08:35 Albumin 4.0 g/dL (3.9-5) 04/23/20 08:35 Albumin/Globulin Ratio 1.5 % 04/23/20 08:35 HCG, Qual Negative (Negative) 04/23/20 12:45 Short CBC 04/23/20 Range/Units 08:35 WBC 4.8 (4.5-11.0) K/mm3 Hgb 12.5 (10.1-14.3) gm/dl Hct 37.1 (30.3-42.9) % Plt Count 241 (140-440) K/mm3 BMP 04/23/20 04/23/20 04/23/20 08:35 14:37 15:45 Sodium 135 L 135 L 137 Potassium 4.3 4.7 4.1 Chloride 98.3 100.7 102.8 Carbon Dioxide 15 L 9 L* 11 L BUN 13 16 15 Creatinine 0.4 L 0.3 L 0.3 L Glucose 350 H 312 H 254 H Calcium 8.6 8.6 8.4 04/23/20 17:09 Sodium 136 L Potassium 3.8 Chloride 104.7 Carbon Dioxide 10 L BUN 13 Creatinine 0.3 L Glucose 183 H Calcium 8.0 L Liver Function 04/23/20 Range/Units 08:35 Total Bilirubin 2.20 H (0.1-1.2) mg/dL AST 21 (5-40) units/L ALT 33 (7-56) units/L Alkaline Phosphatase 135 H (35-129) units/L Albumin 4.0 (3.9-5) g/dL - Imaging and Cardiology Imaging and Cardiology: CT abdomen and pelvis IMPRESSION: No acute abdominal process is identified. No significant change since 02/28/2019 exam Mae/IV: IV Catheter Type [Left] INT / Saline Lock Assessment and Plan Assessment and plan: Critical care statement on 10 The high probability OF a clinically significant sudden or life-threatening deterioration of the cardiorespiratory system and endocrine system required my full and direct attention, intervention and postoperative management. The aggregate medical care time was 40 minutes. The time is in addition to time spent performing reported procedures but includes the followin: Data review and interpretation 2: Patient assessment and monitoring of vital signs 3: Documentation 4:: Medication orders and management Advance Directives: Yes (Full code) VTE prophylaxis?: Chemical Plan of care discussed with patient/family: Yes - Patient Problems (1) DKA (diabetic ketoacidoses) Current Visit: Yes Status: Acute Qualifiers: Diabetes mellitus type: type 1 Diabetes mellitus complication detail: without coma Qualified Code(s): E10.10 - Type 1 diabetes mellitus with ketoacidosis without coma Plan to address problem: 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
[2020-04-23] MEDS ORDERED: DEXTROSE 50% IN WATER (25GM) 50 ML SYRINGE IV PRN (20:02)
[2020-04-23 20:41] LABS: Blood Urea Nitrogen 12 mg/dL (7-17); Hemolysis Index 4
[2020-04-23 20:42] LABS: BUN/Creatinine Ratio 30
[2020-04-23] MEDS ORDERED: POTASSIUM CHLORIDE 10 MEQ 10 MEQ/100 ML BAG IV ONE (23:04)
[2020-04-23 23:18] LABS: Blood Urea Nitrogen 10 mg/dL (7-17); Calcium 8.4 mg/dL (8.4-10.2); Hemolysis Index 8
[2020-04-23 23:21] LABS: BUN/Creatinine Ratio 33
[2020-04-23] MEDS: ONDANSETRON 4 MG/2 ML INJ IV PRN (23:53)
[2020-04-24 00:51] LABS: Blood Urea Nitrogen 8 mg/dL (7-17); Calcium 8.2 mg/dL (8.4-10.2); Hemolysis Index 18
[2020-04-24 00:54] LABS: BUN/Creatinine Ratio 27
[2020-04-24 04:20] LABS: BUN/Creatinine Ratio 23; Blood Urea Nitrogen 7 mg/dL (7-17); Calcium 8.4 mg/dL (8.4-10.2); Hemolysis Index 6
[2020-04-24] MEDS ORDERED: D5W/0.45% NACL/KCL 20 MEQ 20 MEQ/1,000 ML BAG IV ONE (05:20)
[2020-04-24 06:45] LABS: Blood Urea Nitrogen 6 mg/dL (7-17); Calcium 8.6 mg/dL (8.4-10.2); Hemolysis Index 7
[2020-04-24] MEDS ORDERED: K-PHOS NEUTRAL 250 MG TAB PO ONE (06:45)
[2020-04-24 06:50] LABS: BUN/Creatinine Ratio 20
[2020-04-24] MEDS: POTASSIUM CHLORIDE 10 MEQ 10 MEQ/100 ML BAG IV SCH ×2 (09:30→09:31)
[2020-04-24] MEDS: ONDANSETRON 4 MG/2 ML INJ IV PRN (09:38)
[2020-04-24] MEDS: INSULIN GLARGINE 100 UNITS/ML SUB-Q SCH (09:39)
[2020-04-24] MEDS ORDERED: DEXTROSE 50% IN WATER (25GM) 50 ML SYRINGE IV PRN (11:00)
--- NOTE | 2020-04-24 11:26 | History and Physical Report ---
History of Present Illness Date of admission: 04/23/20 17:43 Medications and Allergies Allergies Allergy/AdvReac Type Severity Reaction Status Date / Time No Known Allergies Allergy Verified 04/02/19 17:59 Home Medications Medication Instructions Recorded Confirmed Last Taken Type Insulin NPH Hum/Reg Insulin Hm 30 units SUB-Q BID #1 vial 04/04/19 Unknown Rx [Novolin 70-30 100 Unit/ml Vial] Nicotine [Habitrol] 14 mg TD QDAY #30 patch 04/04/19 Unknown Rx Temazepam [Restoril] 15 mg PO QHS #7 capsule 04/04/19 Unknown Rx Ketorolac [Toradol] 10 mg PO Q6H PRN #15 tablet 07/11/19 Unknown Rx Ondansetron [Zofran ODT TAB] 8 mg PO Q12HR #14 tab.rapdis 07/11/19 Unknown Rx guaiFENesin/CODEINE [Robitussin AC] 5 ml PO Q6H PRN #120 ml 07/11/19 Unknown Rx Dicyclomine [Bentyl] 20 mg PO Q8HR PRN #14 tablet 09/17/19 Unknown Rx Ondansetron [Zofran Odt] 4 mg PO Q8HR PRN #14 tab.rapdis 09/17/19 Unknown Rx cephALEXin [Keflex] 500 mg PO BID 7 Days #14 cap 09/17/19 Unknown Rx Active Meds: Active Medications Dextrose (D50w (25gm) Syringe) 50 ml IV Q30MIN PRN; Protocol PRN Reason: Hypoglycemia Potassium Chloride/Dextrose/Sod Cl (D5w/0.45% Nacl/Kcl 20 Meq) 20 meq in 1,000 mls @ 125 mls/hr IV DIRECT KATIE Insulin Glargine (Lantus) 20 units SUB-Q QAMDIAB [facility] Last Admin: 04/24/20 09:39 Dose: 20 units Documented by: Insulin Human Lispro (Humalog) 18 unit SUB-Q ACHS [facility] Insulin Human Lispro (Humalog) 0 unit SUB-Q ACHS [facility]; Protocol Ondansetron HCl (Zofran) 4 mg IV Q8H PRN PRN Reason: Nausea And Vomiting Last Admin: 04/24/20 09:38 Dose: 4 mg Documented by: Exam - Constitutional Vitals: Temp Pulse Resp BP Pulse Ox 97.7 F 103 H 14 128/76 100 04/23/20 08:19 04/24/20 08:31 04/24/20 08:31 04/23/20 23:01 04/24/20 08:31 Results - Labs CBC & Chem 7: 04/23/20 08:35 04/24/20 05:44 Labs: Laboratory Last Values WBC 4.8 K/mm3 (4.5-11.0) 04/23/20 08:35 RBC 3.93 M/mm3 (3.65-5.03) 04/23/20 08:35 Hgb 12.5 gm/dl (10.1-14.3) 04/23/20 08:35 Hct 37.1 % (30.3-42.9) 04/23/20 08:35 MCV 94 fl (79-97) 04/23/20 08:35 MCH 32 pg (28-32) 04/23/20 08:35 MCHC 34 % (30-34) 04/23/20 08:35 RDW 12.7 % (13.2-15.2) L 04/23/20 08:35 Plt Count 241 K/mm3 (140-440) 04/23/20 08:35 Lymph % (Auto) 28.8 % (13.4-35.0) 04/23/20 08:35 [place] % (Auto) 3.3 % (0.0-7.3) 04/23/20 08:35 Eos % (Auto) 0.3 % (0.0-4.3) 04/23/20 08:35 Baso % (Auto) 1.1 % (0.0-1.8) 04/23/20 08:35 Lymph # (Auto) 1.4 K/mm3 (1.2-5.4) 04/23/20 08:35 [place] # (Auto) 0.2 K/mm3 (0.0-0.8) 04/23/20 08:35 Eos # (Auto) 0.0 K/mm3 (0.0-0.4) 04/23/20 08:35 Baso # (Auto) 0.1 K/mm3 (0.0-0.1) 04/23/20 08:35 Seg Neutrophils % 66.5 % (40.0-70.0) 04/23/20 08:35 Seg Neutrophils # 3.2 K/mm3 (1.8-7.7) 04/23/20 08:35 VBG pH 7.200 (7.320-7.420) L 04/23/20 11:34 Sodium 135 mmol/L (137-145) L 04/24/20 05:44 Potassium 3.6 mmol/L (3.6-5.0) 04/24/20 05:44 Chloride 105.6 mmol/L (98-107) 04/24/20 05:44 Carbon Dioxide 19 mmol/L (22-30) L 04/24/20 05:44 Anion Gap 14 mmol/L 04/24/20 05:44 BUN 6 mg/dL (7-17) L 04/24/20 05:44 Creatinine 0.3 mg/dL (0.6-1.2) L 04/24/20 05:44 Estimated GFR > 60 ml/min 04/24/20 05:44 BUN/Creatinine Ratio 20 % 04/24/20 05:44 Glucose 109 mg/dL (65-100) H 04/24/20 05:44 POC Glucose 237 (70-105) H 04/24/20 08:50 Hemoglobin A1c 9.0 % (4-6) H 04/23/20 20:12 Ketones Quantitative Moderate (Negative) 04/23/20 12:45 Calcium 8.6 mg/dL (8.4-10.2) 04/24/20 05:44 Phosphorus 2.30 mg/dL (2.5-4.5) L 04/23/20 20:12 Magnesium 1.90 mg/dL (1.7-2.3) 04/23/20 20:12 Total Bilirubin 2.20 mg/dL (0.1-1.2) H 04/23/20 08:35 AST 21 units/L (5-40) 04/23/20 08:35 ALT 33 units/L (7-56) 04/23/20 08:35 Alkaline Phosphatase 135 units/L (35-129) H 04/23/20 08:35 Total Protein 6.7 g/dL (6.3-8.2) 04/23/20 08:35 Albumin 4.0 g/dL (3.9-5) 04/23/20 08:35 Albumin/Globulin Ratio 1.5 % 04/23/20 08:35 HCG, Qual Negative (Negative) 04/23/20 12:45 Mae/IV: IV Catheter Type [Left] INT / Saline Lock
--- NOTE | 2020-04-24 11:35 | Progress Note ---
Assessment and Plan Assessment and plan: 38-year-old -[place] female with history of type 1 diabetes who presented to the emergency room with chief complaint of nausea vomiting since the day of presentation. She also complains of epigastric discomfort. She reports missing her insulin dosage as she left 8 at work. She uses 30 units of 70/30 insulin twice a day. She denies any chills or fever. In the ER, she was noted to have DKA with started on insulin drip. 04/24. Patient anion gap is closed. She was started on Lantus. She still has nausea but no vomiting. I also added lispro for now Assessment and plan Diabetes ketoacidosis-from poorly controlled diabetes-hemoglobin A1c 9.0 Insulin drip has been discontinued Now on Lantus and lispro Continue to monitor blood glucose closely Continue consistent carb diet Zofran for nausea. Pantoprazole for dyspepsia Needs to follow-up with program architect - Patient Problems (1) DKA (diabetic ketoacidoses) Current Visit: Yes Status: Acute Qualifiers: Diabetes mellitus type: type 1 Diabetes mellitus complication detail: without coma Qualified Code(s): E10.10 - Type 1 diabetes mellitus with ketoacidosis without coma (2) Gastritis Current Visit: Yes Status: Acute History Interval history: She has no vomiting but she has nausea. Abdominal discomfort is better. Started patient on a diet Hospitalist Physical - Constitutional Vitals: Temp Pulse Resp BP Pulse Ox 97.7 F 103 H 14 128/76 100 04/23/20 08:19 04/24/20 08:31 04/24/20 08:31 04/23/20 23:01 04/24/20 08:31 General appearance: Present: no acute distress, well-nourished - EENT Eyes: Present: PERRL - Respiratory Respiratory: bilateral: CTA - Cardiovascular Rhythm: regular - Abdominal General gastrointestinal: soft, non-tender, non-distended, normal bowel sounds - Psychiatric Psychiatric: appropriate mood/affect - Neurologic Neurologic: CNII-XII intact Results - Labs CBC & Chem 7: 04/23/20 08:35 04/24/20 05:44 Labs: Laboratory Last Values WBC 4.8 K/mm3 (4.5-11.0) 04/23/20 08:35 RBC 3.93 M/mm3 (3.65-5.03) 04/23/20 08:35 Hgb 12.5 gm/dl (10.1-14.3) 04/23/20 08:35 Hct 37.1 % (30.3-42.9) 04/23/20 08:35 MCV 94 fl (79-97) 04/23/20 08:35 MCH 32 pg (28-32) 04/23/20 08:35 MCHC 34 % (30-34) 04/23/20 08:35 RDW 12.7 % (13.2-15.2) L 04/23/20 08:35 Plt Count 241 K/mm3 (140-440) 04/23/20 08:35 Lymph % (Auto) 28.8 % (13.4-35.0) 04/23/20 08:35 Miner % (Auto) 3.3 % (0.0-7.3) 04/23/20 08:35 Eos % (Auto) 0.3 % (0.0-4.3) 04/23/20 08:35 Baso % (Auto) 1.1 % (0.0-1.8) 04/23/20 08:35 Lymph # (Auto) 1.4 K/mm3 (1.2-5.4) 04/23/20 08:35 Miner # (Auto) 0.2 K/mm3 (0.0-0.8) 04/23/20 08:35 Eos # (Auto) 0.0 K/mm3 (0.0-0.4) 04/23/20 08:35 Baso # (Auto) 0.1 K/mm3 (0.0-0.1) 04/23/20 08:35 Seg Neutrophils % 66.5 % (40.0-70.0) 04/23/20 08:35 Seg Neutrophils # 3.2 K/mm3 (1.8-7.7) 04/23/20 08:35 VBG pH 7.200 (7.320-7.420) L 04/23/20 11:34 Sodium 135 mmol/L (137-145) L 04/24/20 05:44 Potassium 3.6 mmol/L (3.6-5.0) 04/24/20 05:44 Chloride 105.6 mmol/L (98-107) 04/24/20 05:44 Carbon Dioxide 19 mmol/L (22-30) L 04/24/20 05:44 Anion Gap 14 mmol/L 04/24/20 05:44 BUN 6 mg/dL (7-17) L 04/24/20 05:44 Creatinine 0.3 mg/dL (0.6-1.2) L 04/24/20 05:44 Estimated GFR > 60 ml/min 04/24/20 05:44 BUN/Creatinine Ratio 20 % 04/24/20 05:44 Glucose 109 mg/dL (65-100) H 04/24/20 05:44 POC Glucose 237 (70-105) H 04/24/20 08:50 Hemoglobin A1c 9.0 % (4-6) H 04/23/20 20:12 Ketones Quantitative Moderate (Negative) 04/23/20 12:45 Calcium 8.6 mg/dL (8.4-10.2) 04/24/20 05:44 Phosphorus 2.30 mg/dL (2.5-4.5) L 04/23/20 20:12 Magnesium 1.90 mg/dL (1.7-2.3) 04/23/20 20:12 Total Bilirubin 2.20 mg/dL (0.1-1.2) H 04/23/20 08:35 AST 21 units/L (5-40) 04/23/20 08:35 ALT 33 units/L (7-56) 04/23/20 08:35 Alkaline Phosphatase 135 units/L (35-129) H 04/23/20 08:35 Total Protein 6.7 g/dL (6.3-8.2) 04/23/20 08:35 Albumin 4.0 g/dL (3.9-5) 04/23/20 08:35 Albumin/Globulin Ratio 1.5 % 04/23/20 08:35 HCG, Qual Negative (Negative) 04/23/20 12:45 Mae/IV: IV Catheter Type [Left] INT / Saline Lock Active Medications - Current Medications Current Medications: Generic Name Dose Route Start Last Admin Trade Name Freq PRN Reason Stop Dose Admin Dextrose 50 ml 04/24/20 11:00 D50w (25gm) Syringe IV Q30MIN PRN Hypoglycemia Protocol Potassium Chloride/Dextrose/Sod Cl 20 meq in 1,000 mls @ 125 mls/hr 04/23/20 21:00 D5w/0.45% Nacl/Kcl 20 Meq IV DIRECT KATIE Insulin Glargine 20 units 04/24/20 08:00 04/24/20 09:39 Lantus SUB-Q 20 units QAMDIAB KATIE Administration Insulin Human Lispro 18 unit 04/24/20 11:30 Humalog SUB-Q ACHS [facility] Insulin Human Lispro 0 unit 04/24/20 11:30 Humalog SUB-Q ACHS [facility] Protocol Ondansetron HCl 4 mg 04/23/20 23:17 04/24/20 09:38 Zofran IV 4 mg Q8H PRN Administration Nausea And Vomiting
[2020-04-24] MEDS ORDERED: SODIUM CHLORIDE 0.9% 1000 ML 1,000 ML IV SCH (11:45)
[2020-04-24] MEDS: INSULIN LISPRO 100 UNIT/ML VIAL 3 mL SUB-Q SCH ×6 (12:34→22:36)
[2020-04-24] MEDS: PANTOPRAZOLE 40 MG INJ IV SCH ×2 (12:39→22:35)
[2020-04-24 14:53] LABS: Blood Urea Nitrogen 7 mg/dL (7-17); Calcium 8.6 mg/dL (8.4-10.2); Hemolysis Index 8
[2020-04-24 14:56] LABS: BUN/Creatinine Ratio 18
[2020-04-24] MEDS: METOCLOPRAMIDE 10 MG/2 ML INJ IV SCH ×2 (17:35→22:35)
[2020-04-24 20:42] LABS: BUN/Creatinine Ratio 15; Blood Urea Nitrogen 6 mg/dL (7-17); Calcium 8.3 mg/dL (8.4-10.2); Hemolysis Index 7
[2020-04-25 05:25] VITALS: BP 104/71
[2020-04-25] MEDS: ONDANSETRON 4 MG/2 ML INJ IV PRN (07:24)
[2020-04-25] MEDS: METOCLOPRAMIDE 10 MG/2 ML INJ IV SCH (07:24)
[2020-04-25] MEDS: INSULIN LISPRO 100 UNIT/ML VIAL 3 mL SUB-Q SCH ×2 (08:09)
[2020-04-25] MEDS: INSULIN GLARGINE 100 UNITS/ML SUB-Q SCH (08:09)
--- NOTE | 2020-04-25 09:14 | Discharge Summary ---
Providers - Providers Date of Admission: 04/23/20 17:43 Date of discharge: 04/25/20 Attending physician: SERAFIN FLEMING 04/23/20 20:02 Consult to Dietitian/Nutrition [CONS] Routine Physician Instructions: Reason For Exam: DKA Reason for Consult: Nutrition Recommendations Reason for Consult: Diet education Primary care physician: VISUALIZATION DEVELOPER Hospitalization Condition: Stable Hospital course: 38-year-old -[place] female with history of type 1 diabetes who presented to the emergency room with chief complaint of nausea vomiting since the day of presentation. She also complains of epigastric discomfort. She reports missing her insulin dosage as she left 8 at work. She uses 30 units of 70/30 insulin twice a day. She denies any chills or fever. In the ER, she was noted to have DKA with started on insulin drip. 04/24. Patient anion gap is closed. She was started on Lantus. She still has nausea but no vomiting. I also added lispro for now 04/25. She is feeling great. Has no nausea or vomiting. She is tolerating diet. Her blood glucose fluctuates but she says this usually happens at home. She says she has type 2 DM and not type 1. Her hbA1c is 9. Her insulin dose has been increased to 38 units with breakfast and 34 units with dinner. I have advised her to see her primary medical doctor in 1-2 weeks. She will need to keep record of her blood glucose levels after discharge. Disposition: TO HOME OR SELFCARE - Discharge Diagnoses (1) DKA (diabetic ketoacidoses) Status: Acute Qualifiers: Diabetes mellitus type: type 1 Diabetes mellitus complication detail: without coma Qualified Code(s): E10.10 - Type 1 diabetes mellitus with ketoacidosis without coma (2) Gastritis Status: Acute Core Measure Documentation - Palliative Care Palliative Care/ Comfort Measures: Not Applicable - Core Measures Any of the following diagnoses?: none Exam - Constitutional Vitals: Temp Pulse Resp BP Pulse Ox 98.1 F 92 H 18 104/71 100 04/25/20 04:20 04/25/20 04:20 04/25/20 04:20 04/25/20 04:20 04/25/20 04:20 General appearance: Present: no acute distress, well-nourished - EENT Eyes: Present: PERRL ENT: hearing intact, clear oral mucosa - Neck Neck: Present: supple, normal ROM - Respiratory Respiratory effort: normal Respiratory: bilateral: CTA - Cardiovascular Heart Sounds: Present: S1 & S2. Absent: rub, click - Extremities Extremities: pulses symmetrical, No edema Peripheral Pulses: within normal limits - Abdominal General gastrointestinal: Present: soft, non-tender, non-distended, normal bowel sounds Female genitourinary: Present: normal - Integumentary Integumentary: Present: clear, warm, dry - Musculoskeletal Musculoskeletal: gait normal, strength equal bilaterally - Psychiatric Psychiatric: appropriate mood/affect, intact judgment & insight - Neurologic Neurologic: CNII-XII intact, moves all extremities Plan Activity: no restrictions Diet: diabetic Additional Instructions: Your insulin dose has been increased to 38 units with breakfast and 34 units with dinner. Always measure your blood glucose reading twice a day. Follow up with your primary medical doctor in 1-2 weeks. Follow up with: PRIMARY CARE, [Primary Care Provider] - 3-5 Days Prescriptions: Insulin NPH Hum/Reg Insulin Hm [Novolin 70-30 100 Unit/ml Vial] 34 unit SQ QPM #2 vial Insulin NPH Hum/Reg Insulin Hm [Novolin 70-30 100 Unit/ml Vial] 38 units SUB-Q QAM #2 vial
[2020-04-25] MEDS: PANTOPRAZOLE 40 MG INJ IV SCH (09:34)
[2020-04-25] MEDS ORDERED: PANTOPRAZOLE 40 MG TAB PO SCH (16:30)
== END 2020-04-25 13:01 | disposition home or self-care (01) | DRG 639 ==
LOC: ED 08:12 → CC1 17:43 → 3A 04-24 07:45
PROVIDERS: ADMIT Internal Medicine; ATTEND Internal Medicine
DX: E10.10 Type 1 diabetes mellitus with ketoacidosis without coma (principal); K29.70 Gastritis, unspecified, without bleeding
CPT/HCPCS: 36415; 74177; 80048; 80053; 82010; 82805; 82962; 83036; 83735; 84100; 84703; 85025; G0378; C9113; J1170; J1815; J2270; J2405; J2765; J3480; J7030; Q9967

== ENCOUNTER 2020-11-30 01:18 | Emergency (ER) | payer SELFPAY ==
[2020-11-30] MEDS ORDERED: SODIUM CHLORIDE 0.9% 1000 ML 1,000 ML IV ONE ×2 (01:34→01:35)
--- NOTE | 2020-11-30 01:48 | Emergency Department Report ---
ED Alcohol HPI - General Chief Complaint: Alcohol Stated Complaint: ALCOHOL USE Time Seen by Provider: 11/30/20 01:30 Source: patient, EMS Mode of arrival: Stretcher Limitations: No Limitations - History of Present Illness Initial Comments: Chief complaint: "She drank too much. She would not talk. She would not respond. HPI: This is a 35-year-old female with history of type 1 diabetes and diabetic gastroparesis who presents with alcohol intoxication. Recently the patient has been drinking alcohol which is a new behavior with a new friend. gave history per home. denies depression. However she just appears to want to have fun with a new friend. Patient would not respond or speak. Consequently family members called 911. Patient will ambulate with assistance. However she would not give any history. 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 Alcohol Use: No Previous Visits for Alcohol Intoxication?: Yes Recent Trauma: No - Related Data Previous Rx's Medication Instructions Recorded Last Taken Type Nicotine [Habitrol] 14 mg TD QDAY #30 patch 04/04/19 04/23/20 00:00 Rx 14 Temazepam [Restoril] 15 mg PO QHS #7 capsule 04/04/19 04/23/20 00:00 Rx 15 Ondansetron [Zofran ODT TAB] 8 mg PO Q12HR #14 tab.rapdis 07/11/19 04/23/20 00:00 Rx 8 guaiFENesin/CODEINE [Robitussin AC] 5 ml PO Q6H PRN #120 ml 07/11/19 04/23/20 03:00 Rx Dicyclomine [Bentyl] 20 mg PO Q8HR PRN #14 tablet 09/17/19 04/23/20 00:00 Rx Ondansetron [Zofran ODT TAB] 4 mg PO Q8HR PRN #14 tab.rapdis 09/17/19 04/23/20 00:00 Rx 4 Insulin NPH Hum/Reg Insulin Hm 34 unit SQ QPM #2 vial 04/25/20 Unknown Rx [Novolin 70-30 100 Unit/ml Vial] Insulin NPH Hum/Reg Insulin Hm 38 units SUB-Q QAM #2 vial 04/25/20 Unknown Rx [Novolin 70-30 100 Unit/ml Vial] Metoclopramide HCl [Reglan TAB] 5 mg PO TIDAC #21 tablet 04/25/20 Unknown Rx Ondansetron [Zofran Odt] 4 mg PO Q8HR PRN #10 tab.rapdis 11/30/20 Unknown Rx Allergies Allergy/AdvReac Type Severity Reaction Status Date / Time No Known Allergies Allergy Verified 04/02/19 17:59 ED Review of Systems ROS: Stated complaint: ALCOHOL USE Other details as noted in HPI Comment: Unobtainable due to pts medical conditions (Acute alcohol intoxication) ED Past Medical Hx - Past Medical History Previous Medical History?: Yes Hx Congestive Heart Failure: No Hx Diabetes: Yes Hx Asthma: No Hx COPD: No - Surgical History Past Surgical History?: Yes Additional Surgical History: 3 c-sections - Social History Smoking Status: Current Every Day Smoker Substance Use Type: Alcohol - Medications Home Medications: Home Medications Medication Instructions Recorded Confirmed Last Taken Type Nicotine [Habitrol] 14 mg TD QDAY #30 patch 04/04/19 04/23/20 00:00 Rx 14 Temazepam [Restoril] 15 mg PO QHS #7 capsule 04/04/19 04/23/20 00:00 Rx 15 Ondansetron [Zofran ODT TAB] 8 mg PO Q12HR #14 tab.rapdis 07/11/19 04/23/20 00 :00 Rx 8 guaiFENesin/CODEINE [Robitussin AC] 5 ml PO Q6H PRN #120 ml 07/11/19 04/23/20 03:00 Rx Dicyclomine [Bentyl] 20 mg PO Q8HR PRN #14 tablet 09/17/19 04/25/20 04/23/20 00:00 Rx Ondansetron [Zofran ODT TAB] 4 mg PO Q8HR PRN #14 tab.rapdis 09/17/19 04/23/20 00:00 Rx 4 Insulin NPH Hum/Reg Insulin Hm 34 unit SQ QPM #2 vial 04/25/20 Unknown Rx [Novolin 70-30 100 Unit/ml Vial] Insulin NPH Hum/Reg Insulin Hm 38 units SUB-Q QAM #2 vial 04/25/20 Unknown Rx [Novolin 70-30 100 Unit/ml Vial] Metoclopramide HCl [Reglan TAB] 5 mg PO TIDAC #21 tablet 04/25/20 Unknown Rx Ondansetron [Zofran Odt] 4 mg PO Q8HR PRN #10 tab.rapdis 11/30/20 Unknown Rx ED Physical Exam - General Limitations: No Limitations General appearance: appears intoxicated, lethargic, other (Patient was able to get up from wheelchair and walks a stretcher with assistance. She then flopped onto stretcher.) - Head Head exam: Present: atraumatic, normocephalic - Eye Eye exam: Present: normal appearance - ENT ENT exam: Present: mucous membranes moist - Neck Neck exam: Present: normal inspection, full ROM - Respiratory Respiratory exam: Present: normal lung sounds bilaterally. Absent: respiratory distress, wheezes, rales, rhonchi - Cardiovascular Cardiovascular Exam: Present: regular rate, normal rhythm, normal heart sounds. Absent: systolic murmur, diastolic murmur, rubs, gallop - GI/Abdominal GI/Abdominal exam: Present: soft, normal bowel sounds. Absent: distended, tenderness, guarding, rebound - Extremities Exam Extremities exam: Present: normal inspection - Neurological Exam Neurological exam: Present: altered - Psychiatric Psychiatric exam: Present: flat affect - Skin Skin exam: Present: warm, dry, intact, normal color. Absent: rash ED Course Vital Signs 11/30/20 01:40 Temperature 97.3 F L Pulse Rate 82 Respiratory 16 Rate Blood Pressure 132/89 O2 Sat by Pulse 98 Oximetry ED Medical Decision Making - Lab Data Result diagrams: 11/30/20 01:55 - Medical Decision Making Acute alcohol intoxication, after 3 hours observation, patient is now awake alert sober. She denies pain or discomfort. She is ambulatory with steady gait. She received 2 L normal saline as well as IV Zofran. She will be discharged. Once blood was drawn, patient's blood alcohol level was below the legal limit. I suspect that copious nausea vomiting is related to diabetic gastroparesis. Patient received prescription for Zofran. Discharge home stable condition. Critical care attestation.: If time is entered above; I have spent that time in minutes in the direct care of this critically ill patient, excluding procedure time. ED Disposition Clinical Impression: Acute alcohol intoxication, Diabetic gastroparesis Disposition: DC-01 TO HOME OR SELFCARE Is pt being admited?: No Does the pt Need Aspirin: No Condition: Stable Instructions: Diabetes Mellitus Type 2 in Adults (ED), Gastroparesis Prescriptions: Ondansetron [Zofran Odt] 4 mg PO Q8HR PRN #10 tab.rapdis PRN Reason: Nausea Referrals: ZACARIAS BORJAS MD [Staff Physician] - 3-5 Days
[2020-11-30] MEDS ORDERED: ONDANSETRON 4 MG/2 ML INJ IV ONE (01:51)
[2020-11-30] MEDS ORDERED: diphenhydrAMINE 50 MG/ML VIAL IV ONE (01:54)
[2020-11-30] MEDS ORDERED: HALOPERIDOL LACTATE 5 MG/1 ML INJ IV ONE (02:16)
[2020-11-30] MEDS ORDERED: HALOPERIDOL LACTATE 5 MG/1 ML INJ ONE (02:19)
[2020-11-30 02:37] LABS: BUN/Creatinine Ratio 27; Blood Urea Nitrogen 8 mg/dL (7-17); Calcium 9.1 mg/dL (8.4-10.2); Hemolysis Index 8
[2020-11-30 07:34] VITALS: BP 131/79
== END 2020-11-30 05:40 | disposition home or self-care (01) ==
LOC: ED 01:18
DX: F10.129 Alcohol abuse with intoxication, unspecified (principal); E10.43 Type 1 diabetes mellitus with diabetic autonomic (poly)neuropathy; K31.84 Gastroparesis; F17.200 Nicotine dependence, unspecified, uncomplicated; Z98.890 Other specified postprocedural states; Z79.4 Long term (current) use of insulin; Y90.9 Presence of alcohol in blood, level not specified
CPT/HCPCS: 36415; 80048; 82805; 96361; 96374; 96375; 99284; J1630; J2405; J7030; 80320; G0480

== ENCOUNTER 2022-01-15 17:43 | Emergency (ER) | payer SELFPAY ==
[2022-01-15] MEDS ORDERED: SODIUM CHLORIDE 0.9% 1000 ML 1,000 ML IV ONE ×3 (18:07→23:54)
[2022-01-15] MEDS ORDERED: POTASSIUM CHLORIDE 10 MEQ 10 MEQ/100 ML BAG IV PRN ×2 (18:07)
[2022-01-15] MEDS ORDERED: DEXTROSE 50% IN WATER (25GM) 50 ML SYRINGE IV PRN (18:07)
[2022-01-15] MEDS ORDERED: diphenhydrAMINE 50 MG/ML VIAL IV ONE ×2 (18:08→18:45)
[2022-01-15] MEDS ORDERED: ONDANSETRON 4 MG/2 ML INJ IV ONE (18:08)
[2022-01-15] MEDS ORDERED: METOCLOPRAMIDE 10 MG/2 ML INJ IV ONE (18:08)
--- NOTE | 2022-01-15 18:17 | Emergency Department Report ---
<ALICE PRITCHETTAbbe - Last Filed: 01/16/22 03:34> ED N/V/D HPI - General Chief complaint: Hyperglycemia Stated complaint: HYPERGLYCEMIA Time Seen by Provider: 01/15/22 18:06 - Related Data Previous Rx's Medication Instructions Recorded Last Taken Type HYDROcodone/APAP 5-325 [[place] 1 each PO Q6HR PRN #10 tablet 01/16/22 Unknown Rx 5/325] Metoclopramide [Reglan] 10 mg PO TID #30 tab 01/16/22 Unknown Rx Promethazine [Phenergan] 25 mg RI Q6HR PRN #5 supp.rect 01/16/22 Unknown Rx Allergies Allergy/AdvReac Type Severity Reaction Status Date / Time No Known Allergies Allergy Verified 01/15/22 17:47 ED Past Medical Hx - Medications Home Medications: Home Medications Medication Instructions Recorded Confirmed Last Taken Type HYDROcodone/APAP 5-325 [[place] 1 each PO Q6HR PRN #10 tablet 01/16/22 Unknown Rx 5/325] Metoclopramide [Reglan] 10 mg PO TID #30 tab 01/16/22 Unknown Rx Promethazine [Phenergan] 25 mg RI Q6HR PRN #5 supp.rect 01/16/22 Unknown Rx ED Course - Reevaluation(s) Reevaluation #2: 01/16/22 04:19 Repeat labs obtained at 02:23. Again not consistent with DKA. I went in to reassess the patient who was initially sleeping. She was arousable to touch and able to speak clearly. States that she feels she was in DKA. I informed her that her labs were not consistent with DKA and that this was likely a result of her gastroparesis. Shortly after I left the room to prepare her for discharge patient had an episode of profuse vomiting. Additional IV fluids and Zofran ordered. Will reassess again in an hour. ED Medical Decision Making - Lab Data Result diagrams: 01/15/22 20:49 01/16/22 02:23 ED Disposition Clinical Impression: Gastroparesis Disposition: 01 HOME / SELF CARE / HOMELESS Condition: Stable Instructions: Gastroparesis Additional Instructions: Return to the emergency department should you develop worsening symptoms, inability to tolerate food or liquids, high fever or any other concerns Prescriptions: HYDROcodone/APAP 5-325 [[place] 5/325] 1 each PO Q6HR PRN #10 tablet PRN Reason: Pain Promethazine [Phenergan] 25 mg RI Q6HR PRN #5 supp.rect PRN Reason: Vomiting Metoclopramide [Reglan] 10 mg PO TID #30 tab Referrals: ZACARIAS BORJAS MD [Primary Care Provider] - 3-5 Days <ANTONY MCGREGOR - Last Filed: 01/16/22 16:36> ED N/V/D HPI - General Source: patient, EMS Mode of arrival: Stretcher Limitations: Other (Patient intermittently refusing to talk) - History of Present Illness Initial comments: 36-year-old female with a past medical history of insulin-dependent diabetes and gastroparesis presents to the hospital with nausea and vomiting since this a.m. Patient initially refused to speak to EMS and provide her date of and other identifiers. She was placed in the chart as a new visit however, she has been previously seen here under the name Madonna Stubbs MRN number [id number]. Patient apparently did take her insulin this morning. Presents to the hospital actively vomiting and refusing to answer any other details of history of present illness at this time. Patient examined on EMS stretcher and meds ordered. ED Review of Systems ROS: Stated complaint: HYPERGLYCEMIA Other details as noted in HPI Comment: Unobtainable due to pts medical conditions ED Physical Exam - General Limitations: No Limitations - Other Other exam information: General: Distressed, actively vomiting Head: Atraumatic Eyes: normal appearance ENT: Moist mucous membranes Neck: Normal appearance, no midline tenderness Chest: Clear to auscultation bilaterally CV: Regular rate and rhythm Abdomen: Soft, normal bowel sounds, generalized abdominal tenderness. No rebound or guarding. Actively vomiting Back: Normal inspection Extremity: Normal inspection, full range of motion Neuro: Alert, refusing to answer questions, no focal deficits. Psych: Appropriate behavior Skin: No rash ED Course Vital Signs 01/15/22 01/16/22 17:45 06:54 Temperature 97.9 F 98 F Pulse Rate 98 H 70 Respiratory 16 18 Rate Blood Pressure 150/90 110/65 [Left] O2 Sat by Pulse 97 98 Oximetry - Reevaluation(s) Reevaluation #1: 01/15/22 23:11 Patient reexamined approximate 30 minutes ago and still would not communicate. Abdomen appears to be diffusely tender. Because of for the patient went to CAT scan but would not lie flat and Asking for pillow. She was also was soiled with feces. Ativan IV ordered to achieve partial sedation. We will add CAT scan head since it is unclear if patient is altered or refusing to comply with questions and request. 01/15/22 23:46 Repeat BMP shows improvement in glucose and anion gap with just IV fluid administration. Patient has yet to receive insulin dose as ordered several hours ago. Labs do not suggest DKA. Symptoms likely secondary to dehydration and gastroparesis. Patient did receive Ativan CAT scan results pending at this time 01/15/22 23:53 Nurse informs me that patient is intermittently speaking to her. She is following commands and able to use bedpan and roll over and expressed when she has to urinate. I was informed by soil technician they were unable to perform CT head noncontrast because she received IV contrast for the belly and forgot to do the head. Patient signed out to Dr. Pritchett to reassess. Patient is likely sleepy secondary to Benadryl and Ativan and will be further observed. ED Medical Decision Making - Lab Data Result diagrams: 01/15/22 20:49 01/16/22 02:23 Lab Results 01/15/22 01/15/22 01/15/22 Range/Units 19:47 19:47 19:47 WBC (4.5-11.0) K/mm3 RBC (3.65-5.03) M/mm3 Hgb (10.1-14.3) gm/dl Hct (30.3-42.9) % MCV (79-97) fl MCH (28-32) pg MCHC (30-34) % RDW (13.2-15.2) % Plt Count (140-440) K/mm3 Lymph % (Auto) (13.4-35.0) % Jerome % (Auto) (0.0-7.3) % Eos % (Auto) (0.0-4.3) % Baso % (Auto) (0.0-1.8) % Lymph # (Auto) (1.2-5.4) K/mm3 Jerome # (Auto) (0.0-0.8) K/mm3 Eos # (Auto) (0.0-0.4) K/mm3 Baso # (Auto) (0.0-0.1) K/mm3 Seg Neutrophils % (40.0-70.0) % Seg Neutrophils # (1.8-7.7) K/mm3 VBG pH (7.320-7.420) Sodium (137-145) mmol/L Potassium (3.6-5.0) mmol/L Chloride (98-107) mmol/L Carbon Dioxide (22-30) mmol/L Anion Gap mmol/L BUN (7-17) mg/dL Creatinine (0.6-1.2) mg/dL Estimated GFR ml/min BUN/Creatinine Ratio % Glucose (65-100) mg/dL POC Glucose (70-105) mg/dL Calcium (8.4-10.2) mg/dL Phosphorus 1.60 L (2.5-4.5) mg/dL Magnesium 1.70 (1.7-2.3) mg/dL Total Bilirubin 2.00 H (0.1-1.2) mg/dL Direct Bilirubin 0.3 H (0-0.2) mg/dL Indirect Bilirubin 1.7 mg/dL AST 26 (5-40) units/L ALT 28 (7-56) units/L Alkaline Phosphatase 79 (35-129) units/L Total Protein 7.1 (6.3-8.2) g/dL Albumin 4.8 (3.9-5) g/dL Albumin/Globulin Ratio 2.1 % Lipase 10 L (13-60) units/L HCG, Quant 0.517 (0-4) mIU/mL Urine Color (Yellow) Urine Turbidity (Clear) Urine pH (5.0-7.0) Ur Specific [place] (1.003-1.030) Urine Protein (Negative) mg/dL Urine Glucose (UA) (Negative) mg/dL Urine Ketones (Negative) mg/dL Urine Blood (Negative) Urine Nitrite (Negative) Ur Reducing Substances Urine Bilirubin (Negative) Urine Ictotest Urine Urobilinogen (<2.0) mg/dL Ur Leukocyte Esterase (Negative) Urine WBC (Auto) (0.0-6.0) /HPF Urine RBC (Auto) (0.0-6.0) /HPF Urine Mucus /HPF Urine Opiates Screen Urine Methadone Screen Ur Barbiturates Screen Ur Phencyclidine Scrn Ur Amphetamines Screen U Benzodiazepines Scrn Urine Cocaine Screen U Marijuana (THC) Screen Drugs of Abuse Note Plasma/Serum Alcohol (0-0.07) % 01/15/22 01/15/22 01/15/22 Range/Units 19:47 19:47 19:47 WBC (4.5-11.0) K/mm3 RBC (3.65-5.03) M/mm3 Hgb (10.1-14.3) gm/dl Hct (30.3-42.9) % MCV (79-97) fl MCH (28-32) pg MCHC (30-34) % RDW (13.2-15.2) % Plt Count (140-440) K/mm3 Lymph % (Auto) (13.4-35.0) % Jerome % (Auto) (0.0-7.3) % Eos % (Auto) (0.0-4.3) % Baso % (Auto) (0.0-1.8) % Lymph # (Auto) (1.2-5.4) K/mm3 Jerome # (Auto) (0.0-0.8) K/mm3 Eos # (Auto) (0.0-0.4) K/mm3 Baso # (Auto) (0.0-0.1) K/mm3 Seg Neutrophils % (40.0-70.0) % Seg Neutrophils # (1.8-7.7) K/mm3 VBG pH 7.410 (7.320-7.420) Sodium 136 L (137-145) mmol/L Potassium 3.8 (3.6-5.0) mmol/L Chloride 99.2 (98-107) mmol/L Carbon Dioxide 17 L (22-30) mmol/L Anion Gap 24 mmol/L BUN 9 (7-17) mg/dL Creatinine 0.4 L (0.6-1.2) mg/dL Estimated GFR > 60 ml/min BUN/Creatinine Ratio 23 % Glucose 387 H (65-100) mg/dL POC Glucose (70-105) mg/dL Calcium 9.9 (8.4-10.2) mg/dL Phosphorus (2.5-4.5) mg/dL Magnesium (1.7-2.3) mg/dL Total Bilirubin (0.1-1.2) mg/dL Direct Bilirubin (0-0.2) mg/dL Indirect Bilirubin mg/dL AST (5-40) units/L ALT (7-56) units/L Alkaline Phosphatase (35-129) units/L Total Protein (6.3-8.2) g/dL Albumin (3.9-5) g/dL Albumin/Globulin Ratio % Lipase (13-60) units/L HCG, Quant (0-4) mIU/mL Urine Color (Yellow) Urine Turbidity (Clear) Urine pH (5.0-7.0) Ur Specific [place] (1.003-1.030) Urine Protein (Negative) mg/dL Urine Glucose (UA) (Negative) mg/dL Urine Ketones (Negative) mg/dL Urine Blood (Negative) Urine Nitrite (Negative) Ur Reducing Substances Urine Bilirubin (Negative) Urine Ictotest Urine Urobilinogen (<2.0) mg/dL Ur Leukocyte Esterase (Negative) Urine WBC (Auto) (0.0-6.0) /HPF Urine RBC (Auto) (0.0-6.0) /HPF Urine Mucus /HPF Urine Opiates Screen Urine Methadone Screen Ur Barbiturates Screen Ur Phencyclidine Scrn Ur Amphetamines Screen U Benzodiazepines Scrn Urine Cocaine Screen U Marijuana (THC) Screen Drugs of Abuse Note Plasma/Serum Alcohol < 0.01 (0-0.07) % 01/15/22 01/15/22 01/15/22 Range/Units 20:49 21:22 22:49 WBC 5.8 (4.5-11.0) K/mm3 RBC 3.91 (3.65-5.03) M/mm3 Hgb 12.1 (10.1-14.3) gm/dl Hct 37.3 (30.3-42.9) % MCV 96 (79-97) fl MCH 31 (28-32) pg MCHC 32 (30-34) % RDW 12.7 L (13.2-15.2) % Plt Count 255 (140-440) K/mm3 Lymph % (Auto) 19.6 (13.4-35.0) % Jerome % (Auto) 6.0 (0.0-7.3) % Eos % (Auto) 0.2 (0.0-4.3) % Baso % (Auto) 0.9 (0.0-1.8) % Lymph # (Auto) 1.1 L (1.2-5.4) K/mm3 Jerome # (Auto) 0.4 (0.0-0.8) K/mm3 Eos # (Auto) 0.0 (0.0-0.4) K/mm3 Baso # (Auto) 0.1 (0.0-0.1) K/mm3 Seg Neutrophils % 73.3 H (40.0-70.0) % Seg Neutrophils # 4.3 (1.8-7.7) K/mm3 VBG pH (7.320-7.420) Sodium 137 (137-145) mmol/L Potassium 3.3 L (3.6-5.0) mmol/L Chloride 102.8 (98-107) mmol/L Carbon Dioxide 20 L (22-30) mmol/L Anion Gap 18 mmol/L BUN 8 (7-17) mg/dL Creatinine 0.4 L (0.6-1.2) mg/dL Estimated GFR > 60 ml/min BUN/Creatinine Ratio 20 % Glucose 306 H (65-100) mg/dL POC Glucose 315 H (70-105) mg/dL Calcium 9.1 (8.4-10.2) mg/dL Phosphorus (2.5-4.5) mg/dL Magnesium (1.7-2.3) mg/dL Total Bilirubin (0.1-1.2) mg/dL Direct Bilirubin (0-0.2) mg/dL Indirect Bilirubin mg/dL AST (5-40) units/L ALT (7-56) units/L Alkaline Phosphatase (35-129) units/L Total Protein (6.3-8.2) g/dL Albumin (3.9-5) g/dL Albumin/Globulin Ratio % Lipase (13-60) units/L HCG, Quant (0-4) mIU/mL Urine Color (Yellow) Urine Turbidity (Clear) Urine pH (5.0-7.0) Ur Specific [place] (1.003-1.030) Urine Protein (Negative) mg/dL Urine Glucose (UA) (Negative) mg/dL Urine Ketones (Negative) mg/dL Urine Blood (Negative) Urine Nitrite (Negative) Ur Reducing Substances Urine Bilirubin (Negative) Urine Ictotest Urine Urobilinogen (<2.0) mg/dL Ur Leukocyte Esterase (Negative) Urine WBC (Auto) (0.0-6.0) /HPF Urine RBC (Auto) (0.0-6.0) /HPF Urine Mucus /HPF Urine Opiates Screen Urine Methadone Screen Ur Barbiturates Screen Ur Phencyclidine Scrn Ur Amphetamines Screen U Benzodiazepines Scrn Urine Cocaine Screen U Marijuana (THC) Screen Drugs of Abuse Note Plasma/Serum Alcohol (0-0.07) % 01/15/22 01/15/22 Range/Units Unknown Unknown WBC (4.5-11.0) K/mm3 RBC (3.65-5.03) M/mm3 Hgb (10.1-14.3) gm/dl Hct (30.3-42.9) % MCV (79-97) fl MCH (28-32) pg MCHC (30-34) % RDW (13.2-15.2) % Plt Count (140-440) K/mm3 Lymph % (Auto) (13.4-35.0) % Jerome % (Auto) (0.0-7.3) % Eos % (Auto) (0.0-4.3) % Baso % (Auto) (0.0-1.8) % Lymph # (Auto) (1.2-5.4) K/mm3 Jerome # (Auto) (0.0-0.8) K/mm3 Eos # (Auto) (0.0-0.4) K/mm3 Baso # (Auto) (0.0-0.1) K/mm3 Seg Neutrophils % (40.0-70.0) % Seg Neutrophils # (1.8-7.7) K/mm3 VBG pH (7.320-7.420) Sodium (137-145) mmol/L Potassium (3.6-5.0) mmol/L Chloride (98-107) mmol/L Carbon Dioxide (22-30) mmol/L Anion Gap mmol/L BUN (7-17) mg/dL Creatinine (0.6-1.2) mg/dL Estimated GFR ml/min BUN/Creatinine Ratio % Glucose (65-100) mg/dL POC Glucose (70-105) mg/dL Calcium (8.4-10.2) mg/dL Phosphorus (2.5-4.5) mg/dL Magnesium (1.7-2.3) mg/dL Total Bilirubin (0.1-1.2) mg/dL Direct Bilirubin (0-0.2) mg/dL Indirect Bilirubin mg/dL AST (5-40) units/L ALT (7-56) units/L Alkaline Phosphatase (35-129) units/L Total Protein (6.3-8.2) g/dL Albumin (3.9-5) g/dL Albumin/Globulin Ratio % Lipase (13-60) units/L HCG, Quant (0-4) mIU/mL Urine Color Yellow (Yellow) Urine Turbidity Slightly cloudy (Clear) Urine pH 8.0 H (5.0-7.0) Ur Specific [place] 1.015 (1.003-1.030) Urine Protein 30 mg/dl (Negative) mg/dL Urine Glucose (UA) Trace (Negative) mg/dL Urine Ketones Trace (Negative) mg/dL Urine Blood Negative (Negative) Urine Nitrite Negative (Negative) Ur Reducing Substances Not Reportable Urine Bilirubin Negative (Negative) Urine Ictotest Not Reportable Urine Urobilinogen 2.0 (<2.0) mg/dL Ur Leukocyte Esterase Negative (Negative) Urine WBC (Auto) 1.0 (0.0-6.0) /HPF Urine RBC (Auto) < 1.0 (0.0-6.0) /HPF Urine Mucus Few /HPF Urine Opiates Screen Presumptive negative Urine Methadone Screen Presumptive negative Ur Barbiturates Screen Presumptive negative Ur Phencyclidine Scrn Presumptive negative Ur Amphetamines Screen Presumptive negative U Benzodiazepines Scrn Presumptive negative Urine Cocaine Screen Presumptive negative U Marijuana (THC) Screen Presumptive positive Drugs of Abuse Note Disclamer Plasma/Serum Alcohol (0-0.07) % - Differential Diagnosis DKA, gastroparesis Critical Care Time: No Critical care attestation.: If time is entered above; I have spent that time in minutes in the direct care of this critically ill patient, excluding procedure time. ED Disposition Is pt being admited?: No
[2022-01-15] MEDS ORDERED: INSULIN REGULAR, HUMAN 100 UNITS/1 ML IV ONE ×2 (18:21→21:23)
[2022-01-15] MEDS ORDERED: D5W/0.45% NACL/KCL 20 MEQ 20 MEQ/1,000 ML BAG IV SCH (19:00)
[2022-01-15] MEDS ORDERED: INSULIN REGULAR, HUMAN 100 UNITS in SODIUM CHLORIDE 0.9% 99 ML IV SCH (19:00)
[2022-01-15 20:26] LABS: Blood Urea Nitrogen 9 mg/dL (7-17); Calcium 9.9 mg/dL (8.4-10.2); Hemolysis Index 18
[2022-01-15 20:27] LABS: BUN/Creatinine Ratio 23
[2022-01-15 20:45] LABS: Albumin 4.8 g/dL (3.9-5); Bilirubin,Direct 0.3 mg/dL (0-0.2)
[2022-01-15 21:12] LABS: Basophils # (Auto) 0.1 K/mm3 (0.0-0.1); Basophils % (Auto) 0.9 % (0.0-1.8); Eosinophils % (Auto) 0.2 % (0.0-4.3); Hematocrit 37.3 % (30.3-42.9); Hemoglobin 12.1 gm/dl (10.1-14.3); Lymphocytes # (Auto) 1.1 K/mm3 (1.2-5.4); Lymphocytes % (Auto) 19.6 % (13.4-35.0); Mean Corpuscular HGB Conc 32 % (30-34); Mean Corpuscular Volume 96 fl (79-97); Monocytes # (Auto) 0.4 K/mm3 (0.0-0.8); Platelet Count 255 K/mm3 (140-440); Red Blood Count 3.91 M/mm3 (3.65-5.03); Red Cell Distribution Width 12.7 % (13.2-15.2)
[2022-01-15] MEDS ORDERED: SODIUM CHLORIDE 0.9% 1000 ML 1,000 ML ONE ×3 (21:54→21:55)
[2022-01-15 22:04] LABS: Amphetamine Screen,Urine PRESUMPTIVE NEGATIVE; Benzodiazepines Screen,Urine PRESUMPTIVE NEGATIVE; Cannabinoid Screen,Urine PRESUMPTIVE POSITIVE; Cocaine Screen,Urine PRESUMPTIVE NEGATIVE; Methadone Screen,Urine PRESUMPTIVE NEGATIVE; Opiate Screen,Urine PRESUMPTIVE NEGATIVE
[2022-01-15 22:11] LABS: Mucus,Urine FEW /HPF; RBC,Urine < 1.0 /HPF (0.0-6.0)
[2022-01-15 22:16] LABS: Color,Urine Yellow (Yellow)
[2022-01-15 22:17] LABS: Bilirubin,Urine Negative (Negative); Blood,Urine Negative (Negative)
[2022-01-15] MEDS ORDERED: LORazepam 2 MG/ML VIAL IV ONE (23:10)
[2022-01-15 23:24] LABS: Blood Urea Nitrogen 8 mg/dL (7-17); Calcium 9.1 mg/dL (8.4-10.2); Hemolysis Index 6
[2022-01-15 23:29] LABS: BUN/Creatinine Ratio 20
[2022-01-15] MEDS ORDERED: POTASSIUM CHLORIDE 10 MEQ 10 MEQ/100 ML BAG IV SCH (23:45)
[2022-01-15] MEDS ORDERED: INSULIN REGULAR, HUMAN 100 UNITS/1 ML ONE (23:55)
--- NOTE | 2022-01-16 00:09 | Cat Scan Report ---
CT abdomen pelvis w con INDICATION / CLINICAL INFORMATION: n,v abd pain. TECHNIQUE: Axial CT images were obtained through the abdomen and pelvis after IV contrast. All CT sc ans at this location are performed using CT dose reduction for ALARA by means of automated exposure c ontrol. COMPARISON: CT from 04/23/2020 FINDINGS: LOWER CHEST: No significant abnormality LIVER: No significant abnormality GALLBLADDER/BILIARY TREE: No significant abnormality PANCREAS: No significant abnormality SPLEEN: No significant abnormality ADRENALS: No significant abnormality RIGHT KIDNEY / URETER: No significant abnormality LEFT KIDNEY / URETER: 1.5 cm probable cyst in the medial left upper pole. No acute findings. No hydro nephrosis. URINARY BLADDER: No significant abnormality REPRODUCTIVE ORGANS: IUD in the fundal endometrium. STOMACH / BOWEL: Small and large bowel are decompressed without evidence of localized bowel inflammat ion or obstruction. Normal appendix. LYMPH NODES: No significant adenopathy. VASCULATURE: No significant abnormality. OTHER: No free air, free fluid, or focal fluid collection is identified. SKELETAL SYSTEM: No acute osseous findings. IMPRESSION: No acute findings of the abdomen or pelvis. Signer Name: Emery Dobson MD Signed: 01/16/2022 12:05 AM Workstation Name: [id number]
[2022-01-16 01:05] LABS: Blood Urea Nitrogen 8 mg/dL (7-17); Hemolysis Index 9
[2022-01-16 01:08] LABS: BUN/Creatinine Ratio 20
--- NOTE | 2022-01-16 01:53 | Cat Scan Report ---
CT HEAD WITHOUT CONTRAST INDICATION / CLINICAL INFORMATION: altered mental status. TECHNIQUE: All CT scans at this location are performed using CT dose reduction for ALARA by means of automated exposure control. COMPARISON: None available. FINDINGS: BRAIN PARENCHYMA: No acute intracranial hemorrhage. No evidence of recent infarct. No mass effect or midline shift. VENTRICULAR SYSTEM/EXTRA-AXIAL SPACES: Ventricles are normal for age. No extra-axial fluid collection . ORBITS: Normal as visualized. SKELETAL SYSTEM/SOFT TISSUES: Normal bones and soft tissues. PARANASAL SINUSES/MASTOID AIR CELLS: No significant abnormality. ADDITIONAL FINDINGS: None. IMPRESSION: 1. No acute intracranial abnormality. Signer Name: Emery Dobson MD Signed: 01/16/2022 1:49 AM Workstation Name: [id number]
[2022-01-16 02:59] LABS: Blood Urea Nitrogen 7 mg/dL (7-17); Hemolysis Index 2
[2022-01-16 03:24] LABS: BUN/Creatinine Ratio 18
[2022-01-16] MEDS ORDERED: SODIUM CHLORIDE 0.9% 1000 ML 1,000 ML IV ONE (03:36)
[2022-01-16] MEDS ORDERED: ONDANSETRON 4 MG/2 ML INJ IV ONE (03:37)
[2022-01-16 06:59] VITALS: BP 110/65
== END 2022-01-16 06:59 | disposition home or self-care (01) ==
LOC: EDSEX → MERGE 17:43 → ED 17:43
DX: K31.84 Gastroparesis (principal); R10.9 Unspecified abdominal pain
CPT/HCPCS: 36415; 70450; 74177; 80048; 80076; 80307; 81001; 82805; 82962; 83690; 83735; 84100; 84702; 85025; 96361; 96374; 96375; 96376; 99284; J1200; J2060; J2405; J2765; J7030; Q9967; 80320; G0480; J1815

== ENCOUNTER 2022-02-15 09:32 | Emergency (ER) | payer SELFPAY ==
[2022-02-15] MEDS ORDERED: ONDANSETRON 4 MG/2 ML INJ IV ONE (09:55)
[2022-02-15] MEDS ORDERED: SODIUM CHLORIDE 0.9% 1000 ML 1,000 ML IV ONE (09:56)
[2022-02-15] MEDS ORDERED: METOCLOPRAMIDE 10 MG/2 ML INJ IV ONE (09:57)
[2022-02-15] MEDS ORDERED: HALOPERIDOL LACTATE 5 MG/1 ML INJ ONE (10:10)
[2022-02-15 10:57] LABS: Basophils % (Auto) 0.9 % (0.0-1.8); Eosinophils % (Auto) 0.5 % (0.0-4.3); Hematocrit 37.5 % (30.3-42.9); Lymphocytes # (Auto) 1.4 K/mm3 (1.2-5.4); Lymphocytes % (Auto) 29.7 % (13.4-35.0); Mean Corpuscular HGB Conc 35 % (30-34); Mean Corpuscular Volume 92 fl (79-97); Monocytes # (Auto) 0.3 K/mm3 (0.0-0.8); Monocytes % (Auto) 5.9 % (0.0-7.3); Platelet Count 264 K/mm3 (140-440); Red Blood Count 4.07 M/mm3 (3.65-5.03); Red Cell Distribution Width 12.8 % (13.2-15.2)
[2022-02-15 11:05] LABS: INR 0.84 (0.87-1.13)
--- NOTE | 2022-02-15 11:15 | XRay Report ---
XR chest 1V ap INDICATION / CLINICAL INFORMATION: Chest Pain. COMPARISON: 07/11/2019 FINDINGS: SUPPORT DEVICES: None. HEART /PULMONARY VASCULATURE: No significant abnormality. LUNGS / PLEURA: No significant pulmonary or pleural abnormality. No pneumothorax. ADDITIONAL FINDINGS: No significant additional findings. IMPRESSION: 1. No acute findings. Signer Name: Emery Dobson MD Signed: 02/15/2022 11:11 AM Workstation Name: [id number]
[2022-02-15 11:39] LABS: Alanine Aminotransferase 37 units/L (7-56); Albumin 4.3 g/dL (3.9-5); Blood Urea Nitrogen 7 mg/dL (7-17); Calcium 9.3 mg/dL (8.4-10.2); Hemolysis Index 5
[2022-02-15 11:46] LABS: BUN/Creatinine Ratio 14
[2022-02-15] MEDS ORDERED: INSULIN REGULAR, HUMAN 100 UNITS/1 ML IV ONE (11:53)
[2022-02-15 12:04] LABS: C-Reactive Protein < 0.30 mg/dL (0.00-1.30)
[2022-02-15 12:08] LABS: ABG Base Excess -2.3 mmol/L (-2.0-3.0); ABG HCO3 19.5 mmol/L (20.0-26.0); ABG PCO2 26.5 mm Hg; ABG PH 7.483 pH Units (7.350-7.450); ABG PO2 115.9 mm Hg (80.0-90.0)
[2022-02-15] MEDS ORDERED: POTASSIUM CHLORIDE 10 MEQ 10 MEQ/100 ML BAG IV SCH (12:30)
[2022-02-15 12:33] LABS: ABG Methemoglobin 0.5 % (0.0-1.5)
--- NOTE | 2022-02-15 14:00 | Emergency Department Report ---
ED General Adult HPI - General Chief complaint: Hyperglycemia Stated complaint: HYPERGLYCEMIA PUI?: No Time Seen by Provider: 02/15/22 09:53 Source: patient, EMS Mode of arrival: Stretcher Limitations: No Limitations - History of Present Illness Initial comments: PT ARRIVING FROM HOME, BGL 586 AT HOME. 334 FOR EMS, N/V. RECEIVED 200ML NS EN ROUTE. REPEAT 423. 18G L HAND pt has alcohol abuse problem, her BS was 500 this morning so she took 20 units, intractable vomiting -: Gradual, hour(s) Radiation: non-radiation Severity scale (0 -10): 2 Quality: aching Consistency: constant Improves with: none Worsens with: none - Related Data Previous Rx's Medication Instructions Recorded Last Taken Type Nicotine [Habitrol] 14 mg TD QDAY #30 patch 04/04/19 04/23/20 00:00 Rx 14 Temazepam [Restoril] 15 mg PO QHS #7 capsule 04/04/19 04/23/20 00:00 Rx 15 Ondansetron [Zofran ODT TAB] 8 mg PO Q12HR #14 tab.rapdis 07/11/19 04/23/20 00:00 Rx 8 guaiFENesin/CODEINE [Robitussin AC] 5 ml PO Q6H PRN #120 ml 07/11/19 04/23/20 03:00 Rx Dicyclomine [Bentyl] 20 mg PO Q8HR PRN #14 tablet 09/17/19 04/23/20 00:00 Rx Ondansetron [Zofran ODT TAB] 4 mg PO Q8HR PRN #14 tab.rapdis 09/17/19 04/23/20 00:00 Rx 4 Insulin NPH Hum/Reg Insulin Hm 34 unit SQ QPM #2 vial 04/25/20 Unknown Rx [Novolin 70-30 100 Unit/ml Vial] Insulin NPH Hum/Reg Insulin Hm 38 units SUB-Q QAM #2 vial 04/25/20 Unknown Rx [Novolin 70-30 100 Unit/ml Vial] Metoclopramide HCl [Reglan TAB] 5 mg PO TIDAC #21 tablet 04/25/20 Unknown Rx Ondansetron [Zofran Odt] 4 mg PO Q8HR PRN #10 tab.rapdis 11/30/20 Unknown Rx HYDROcodone/APAP 5-325 [[place] 1 each PO Q6HR PRN #10 tablet 01/16/22 Unknown Rx 5/325] Metoclopramide [Reglan] 10 mg PO TID #30 tab 01/16/22 Unknown Rx Promethazine [Phenergan] 25 mg DC Q6HR PRN #5 supp.rect 01/16/22 Unknown Rx Allergies Allergy/AdvReac Type Severity Reaction Status Date / Time No Known Allergies Allergy Verified 01/19/22 14:20 ED Review of Systems ROS: Stated complaint: HYPERGLYCEMIA Other details as noted in HPI Constitutional: denies: chills, fever Eyes: denies: eye pain, eye discharge, vision change ENT: denies: ear pain, throat pain Respiratory: denies: cough, shortness of breath, wheezing Cardiovascular: denies: chest pain, palpitations Endocrine: no symptoms reported Gastrointestinal: denies: abdominal pain, nausea, diarrhea Genitourinary: denies: urgency, dysuria, discharge Musculoskeletal: denies: back pain, joint swelling, arthralgia Skin: denies: rash, lesions Neurological: denies: headache, weakness, paresthesias Psychiatric: denies: anxiety, depression Hematological/Lymphatic: denies: easy bleeding, easy bruising ED Past Medical Hx - Past Medical History Hx Congestive Heart Failure: No Hx Diabetes: Yes Hx Asthma: No Hx COPD: No - Surgical History Additional Surgical History: 3 c-sections - Social History Smoking Status: Current Every Day Smoker Substance Use Type: Alcohol - Medications Home Medications: Home Medications Medication Instructions Recorded Confirmed Last Taken Type Nicotine [Habitrol] 14 mg TD QDAY #30 patch 04/04/19 04/23/20 00:00 Rx 14 Temazepam [Restoril] 15 mg PO QHS #7 capsule 04/04/19 04/23/20 00:00 Rx 15 Ondansetron [Zofran ODT TAB] 8 mg PO Q12HR #14 tab.rapdis 07/11/19 04/23/20 00:00 Rx 8 guaiFENesin/CODEINE [Robitussin AC] 5 ml PO Q6H PRN #120 ml 07/11/19 04/23/20 03:00 Rx Dicyclomine [Bentyl] 20 mg PO Q8HR PRN #14 tablet 09/17/19 04/25/20 04/23/20 00:00 Rx Ondansetron [Zofran ODT TAB] 4 mg PO Q8HR PRN #14 tab.rapdis 09/17/19 04/23/20 00:00 Rx 4 Insulin NPH Hum/Reg Insulin Hm 34 unit SQ QPM #2 vial 04/25/20 Unknown Rx [Novolin 70-30 100 Unit/ml Vial] Insulin NPH Hum/Reg Insulin Hm 38 units SUB-Q QAM #2 vial 04/25/20 Unknown Rx [Novolin 70-30 100 Unit/ml Vial] Metoclopramide HCl [Reglan TAB] 5 mg PO TIDAC #21 tablet 04/25/20 Unknown Rx Ondansetron [Zofran Odt] 4 mg PO Q8HR PRN #10 tab.rapdis 11/30/20 Unknown Rx HYDROcodone/APAP 5-325 [[place] 1 each PO Q6HR PRN #10 tablet 01/16/22 Unknown Rx 5/325] Metoclopramide [Reglan] 10 mg PO TID #30 tab 01/16/22 Unknown Rx Promethazine [Phenergan] 25 mg DC Q6HR PRN #5 supp.rect 01/16/22 Unknown Rx ED Physical Exam - General Limitations: No Limitations General appearance: alert, anxious, in distress, other (actively vomiting) - Head Head exam: Present: atraumatic, normocephalic - Eye Eye exam: Present: normal appearance - ENT ENT exam: Present: mucous membranes moist - Neck Neck exam: Present: normal inspection - Respiratory Respiratory exam: Present: normal lung sounds bilaterally. Absent: respiratory distress - Cardiovascular Cardiovascular Exam: Present: regular rate, normal rhythm. Absent: systolic murmur, diastolic murmur, rubs, gallop - GI/Abdominal GI/Abdominal exam: Present: soft, normal bowel sounds - Extremities Exam Extremities exam: Present: normal inspection - Back Exam Back exam: Present: normal inspection - Neurological Exam Neurological exam: Present: alert, oriented X3 - Psychiatric Psychiatric exam: Present: normal affect, normal mood - Skin Skin exam: Present: warm, dry, intact, normal color. Absent: rash ED Course Vital Signs 02/15/22 09:35 Temperature 97.8 F Pulse Rate 103 H Respiratory 16 Rate Blood Pressure 162/106 [Left] O2 Sat by Pulse 99 Oximetry ED Medical Decision Making - Lab Data Result diagrams: 02/15/22 10:07 02/15/22 10:07 - EKG Data -: EKG Interpreted by Me - Radiology Data Radiology results: report reviewed, image reviewed - Medical Decision Making work up showed hyperglycemia without ketosis gap, or acidosis, fluids given insulin reglan and she imrpoved i suspect gastroapresis in her picture Critical care attestation.: If time is entered above; I have spent that time in minutes in the direct care of this critically ill patient, excluding procedure time. ED Disposition Clinical Impression: Hyperglycemia, Uncontrolled diabetes mellitus, Nausea & vomiting, Gastritis Disposition: 01 HOME / SELF CARE / HOMELESS Is pt being admited?: No Does the pt Need Aspirin: No Condition: Stable Instructions: Nausea, Adult, Vomiting, Adult, Diabetes Mellitus Type 2 in Adults (ED) Referrals: PRIMARY CARE, [Primary Care Provider] - 3-5 Days
[2022-02-15 18:26] VITALS: BP 164/94
== END 2022-02-15 18:29 | disposition home or self-care (01) ==
LOC: ED 09:32
DX: E11.65 Type 2 diabetes mellitus with hyperglycemia (principal); R11.2 Nausea with vomiting, unspecified; K29.70 Gastritis, unspecified, without bleeding; F17.200 Nicotine dependence, unspecified, uncomplicated
CPT/HCPCS: 36415; 71045; 80053; 82010; 82550; 82803; 82962; 83690; 83880; 84484; 85025; 85610; 86140; 96361; 96374; 96375; 99284; J1630; J2405; J2765; J3480; J7030; 80320; Q9967; G0480; J1815

== ENCOUNTER 2022-03-20 10:04 | Inpatient (IN) | payer SELFPAY ==
[2022-03-20] MEDS ORDERED: SODIUM CHLORIDE 0.9% 1000 ML 2,000 ML IV ONE (10:26)
[2022-03-20] MEDS ORDERED: ONDANSETRON 4 MG/2 ML INJ ONE (10:47)
[2022-03-20] MEDS ORDERED: ONDANSETRON 4 MG/2 ML INJ IV ONE (11:11)
[2022-03-20] MEDS ORDERED: PROCHLORPERAZINE EDISYLATE 10 MG/2 ML VIAL IV ONE ×2 (11:20)
[2022-03-20 11:38] LABS: Creatine Kinase MB 7.2 ng/mL (0.0-4.0)
--- NOTE | 2022-03-20 11:38 | XRay Report ---
CHEST 1 VIEW 03/20/2022 10:26 AM INDICATION / CLINICAL INFORMATION: Dyspnea. COMPARISON: 02/15/2022 FINDINGS: SUPPORT DEVICES: None. HEART / MEDIASTINUM: No significant abnormality. LUNGS / PLEURA: No significant pulmonary or pleural abnormality. No pneumothorax. ADDITIONAL FINDINGS: No significant additional findings. IMPRESSION: 1. No acute findings. Signer Name: Geronimo Mcnamara MD Signed: 03/20/2022 11:34 AM Workstation Name: [id number]
[2022-03-20 11:40] LABS: Alanine Aminotransferase 33 units/L (7-56); Albumin 4.8 g/dL (3.9-5); Blood Urea Nitrogen 11 mg/dL (7-17); Calcium 9.9 mg/dL (8.4-10.2); Hemolysis Index 63
[2022-03-20 11:45] LABS: BUN/Creatinine Ratio 22
[2022-03-20 11:55] LABS: RBC,Urine < 1.0 /HPF (0.0-6.0)
[2022-03-20 11:57] LABS: Color,Urine Straw (Yellow)
[2022-03-20 12:04] LABS: Amphetamine Screen,Urine Negative; Benzodiazepines Screen,Urine Negative; Cocaine Screen,Urine Negative; Methadone Screen,Urine Negative; Opiate Screen,Urine Negative
[2022-03-20 12:17] LABS: Cannabinoid Screen,Urine Positive
[2022-03-20] MEDS: INSULIN REGULAR, HUMAN 100 UNITS in SODIUM CHLORIDE 0.9% 99 ML IV SCH ×2 (12:26→13:37)
[2022-03-20 12:43] LABS: Blood Urea Nitrogen 10 mg/dL (7-17); Calcium 8.7 mg/dL (8.4-10.2); Hemolysis Index 8
[2022-03-20 13:01] LABS: BUN/Creatinine Ratio 20
[2022-03-20 13:53] LABS: ABG Base Excess -6.8 mmol/L (-2.0-3.0); ABG HCO3 18.1 mmol/L (20.0-26.0); ABG Methemoglobin 0.5 % (0.0-1.5); ABG Oxygen Saturation 99.2 % (95.0-99.0); ABG PH 7.343 pH Units (7.350-7.450)
[2022-03-20] MEDS ORDERED: D5W/0.45% NACL/KCL 20 MEQ 20 MEQ/1,000 ML BAG IV SCH (14:00)
[2022-03-20] MEDS ORDERED: INSULIN REGULAR, HUMAN 100 UNITS/1 ML IV ONE (14:19)
[2022-03-20 14:30] LABS: Blood Urea Nitrogen 9 mg/dL (7-17); Calcium 8.6 mg/dL (8.4-10.2); Hemolysis Index 7
[2022-03-20 14:31] LABS: BUN/Creatinine Ratio 23
--- NOTE | 2022-03-20 14:42 | Emergency Department Report ---
- General Chief complaint: Hyperglycemia Stated complaint: HIGH BLOOD SUGAR PUI?: No Time Seen by Provider: 03/20/22 10:25 Source: EMS Mode of arrival: Stretcher Limitations: No Limitations - History of Present Illness Initial comments: high blood sugar and vomiting , pt is here frequently for the same, diagnsoed with cyclic vomiting 2ry to THC , BS in 500s today , pt is actively vomiting MD Complaint: generalized weakness -: Gradual, hour(s) Consistency: constant Improves with: none Worsens with: none Associated Symptoms: nausea/vomiting. denies: denies other symptoms, chest pain, confusion - Related Data Previous Rx's Medication Instructions Recorded Last Taken Type Nicotine [Habitrol] 14 mg TD QDAY #30 patch 04/04/19 04/23/20 00:00 Rx 14 Temazepam [Restoril] 15 mg PO QHS #7 capsule 04/04/19 04/23/20 00:00 Rx 15 Ondansetron [Zofran ODT TAB] 8 mg PO Q12HR #14 tab.rapdis 07/11/19 04/23/20 00:00 Rx 8 guaiFENesin/CODEINE [Robitussin AC] 5 ml PO Q6H PRN #120 ml 07/11/19 04/23/20 03:00 Rx Dicyclomine [Bentyl] 20 mg PO Q8HR PRN #14 tablet 09/17/19 04/23/20 00:00 Rx Ondansetron [Zofran ODT TAB] 4 mg PO Q8HR PRN #14 tab.rapdis 09/17/19 04/23/20 00:00 Rx 4 Insulin NPH Hum/Reg Insulin Hm 34 unit SQ QPM #2 vial 04/25/20 Unknown Rx [Novolin 70-30 100 Unit/ml Vial] Insulin NPH Hum/Reg Insulin Hm 38 units SUB-Q QAM #2 vial 04/25/20 Unknown Rx [Novolin 70-30 100 Unit/ml Vial] Metoclopramide HCl [Reglan TAB] 5 mg PO TIDAC #21 tablet 04/25/20 Unknown Rx Ondansetron [Zofran Odt] 4 mg PO Q8HR PRN #10 tab.rapdis 11/30/20 Unknown Rx HYDROcodone/APAP 5-325 [[place] 1 each PO Q6HR PRN #10 tablet 01/16/22 Unknown Rx 5/325] Metoclopramide [Reglan] 10 mg PO TID #30 tab 01/16/22 Unknown Rx Promethazine [Phenergan] 25 mg MS Q6HR PRN #5 supp.rect 01/16/22 Unknown Rx Metoclopramide [Reglan] 10 mg PO TID #20 tab 02/15/22 Unknown Rx Allergies Allergy/AdvReac Type Severity Reaction Status Date / Time No Known Allergies Allergy Verified 03/20/22 10:17 ED Review of Systems ROS: Stated complaint: HIGH BLOOD SUGAR Other details as noted in HPI Constitutional: denies: chills, fever Eyes: denies: eye pain, eye discharge, vision change ENT: denies: ear pain, throat pain Respiratory: denies: cough, shortness of breath, wheezing Cardiovascular: denies: chest pain, palpitations Endocrine: no symptoms reported Gastrointestinal: denies: abdominal pain, nausea, diarrhea Genitourinary: denies: urgency, dysuria, discharge Musculoskeletal: denies: back pain, joint swelling, arthralgia Skin: denies: rash, lesions Neurological: denies: headache, weakness, paresthesias Psychiatric: denies: anxiety, depression Hematological/Lymphatic: denies: easy bleeding, easy bruising ED Past Medical Hx - Past Medical History Hx Congestive Heart Failure: No Hx Diabetes: Yes Hx Asthma: No Hx COPD: No - Surgical History Additional Surgical History: 3 c-sections - Social History Smoking Status: Current Every Day Smoker Substance Use Type: Alcohol - Medications Home Medications: Home Medications Medication Instructions Recorded Confirmed Last Taken Type Nicotine [Habitrol] 14 mg TD QDAY #30 patch 04/04/19 04/23/20 00:00 Rx 14 Temazepam [Restoril] 15 mg PO QHS #7 capsule 04/04/19 04/23/20 00:00 Rx 15 Ondansetron [Zofran ODT TAB] 8 mg PO Q12HR #14 tab.rapdis 07/11/19 04/23/20 00:00 Rx 8 guaiFENesin/CODEINE [Robitussin AC] 5 ml PO Q6H PRN #120 ml 07/11/19 04/23/20 03:00 Rx Dicyclomine [Bentyl] 20 mg PO Q8HR PRN #14 tablet 09/17/19 04/25/20 04/23/20 00:00 Rx Ondansetron [Zofran ODT TAB] 4 mg PO Q8HR PRN #14 tab.rapdis 09/17/19 04/23/20 00:00 Rx 4 Insulin NPH Hum/Reg Insulin Hm 34 unit SQ QPM #2 vial 04/25/20 Unknown Rx [Novolin 70-30 100 Unit/ml Vial] Insulin NPH Hum/Reg Insulin Hm 38 units SUB-Q QAM #2 vial 04/25/20 Unknown Rx [Novolin 70-30 100 Unit/ml Vial] Metoclopramide HCl [Reglan TAB] 5 mg PO TIDAC #21 tablet 04/25/20 Unknown Rx Ondansetron [Zofran Odt] 4 mg PO Q8HR PRN #10 tab.rapdis 11/30/20 Unknown Rx HYDROcodone/APAP 5-325 [[place] 1 each PO Q6HR PRN #10 tablet 01/16/22 Unknown Rx 5/325] Metoclopramide [Reglan] 10 mg PO TID #30 tab 01/16/22 Unknown Rx Promethazine [Phenergan] 25 mg MS Q6HR PRN #5 supp.rect 01/16/22 Unknown Rx Metoclopramide [Reglan] 10 mg PO TID #20 tab 02/15/22 Unknown Rx ED Physical Exam - General Limitations: No Limitations General appearance: alert, other (dry heaving) - Head Head exam: Present: atraumatic, normocephalic - Eye Eye exam: Present: normal appearance - ENT ENT exam: Present: mucous membranes dry - Neck Neck exam: Present: normal inspection - Respiratory Respiratory exam: Present: normal lung sounds bilaterally. Absent: respiratory distress - Cardiovascular Cardiovascular Exam: Present: regular rate, normal rhythm. Absent: systolic murmur, diastolic murmur, rubs, gallop - GI/Abdominal GI/Abdominal exam: Present: soft, normal bowel sounds - Extremities Exam Extremities exam: Present: normal inspection - Back Exam Back exam: Present: normal inspection - Neurological Exam Neurological exam: Present: alert, oriented X3 - Psychiatric Psychiatric exam: Present: normal affect, normal mood - Skin Skin exam: Present: warm, dry, intact, normal color. Absent: rash ED Course Vital Signs 03/20/22 03/20/22 03/20/22 10:15 10:45 11:24 Pulse Rate 94 H 77 88 Respiratory 18 18 17 Rate Blood Pressure 182/54 141/85 148/92 [Left] O2 Sat by Pulse 99 99 99 Oximetry 03/20/22 03/20/22 11:37 12:38 Pulse Rate 84 98 H Respiratory 18 18 Rate Blood Pressure 142/57 141/73 [Left] O2 Sat by Pulse 99 99 Oximetry ED Medical Decision Making - Lab Data Result diagrams: 03/20/22 13:32 - EKG Data EKG shows normal: sinus rhythm Rate: normal - Radiology Data Radiology results: report reviewed, image reviewed - Medical Decision Making reglan given with fluids insulin blous and drip CMP repeated twice , imrpoving, spoke to mom will come pick her up Critical care attestation.: If time is entered above; I have spent that time in minutes in the direct care of this critically ill patient, excluding procedure time. ED Disposition Clinical Impression: Hyperglycemia, Uncontrolled diabetes mellitus, Metabolic acidosis, Nausea & vomiting, Cyclic vomiting syndrome, Tetrahydrocannabinol (THC) use disorder, mild, abuse Disposition: 01 HOME / SELF CARE / HOMELESS Is pt being admited?: No Does the pt Need Aspirin: No Condition: Stable Instructions: Diabetes Mellitus Type 2 in Adults (ED), Nausea and Vomiting, Billy lt, Hyperglycemia, Cannabinoid Hyperemesis Syndrome
[2022-03-20] MEDS ORDERED: SODIUM CHLORIDE 0.9% 1000 ML 1,000 ML ONE (16:11)
[2022-03-20 16:14] LABS: Blood Urea Nitrogen 8 mg/dL (7-17); Calcium 8.6 mg/dL (8.4-10.2); Hemolysis Index 3
[2022-03-20 16:15] LABS: BUN/Creatinine Ratio 20
[2022-03-20] MEDS ORDERED: SODIUM CHLORIDE 0.9% 1000 ML 1,000 ML IV ONE (16:15)
[2022-03-20] MEDS ORDERED: HYDROmorphone 0.5 MG/0.5 ML INJ IV PRN (18:33)
[2022-03-20] MEDS ORDERED: MORPHINE 2 MG/1 ML INJ IV PRN (18:33)
[2022-03-20] MEDS ORDERED: ONDANSETRON 4 MG/2 ML INJ IV PRN (18:33)
[2022-03-20] MEDS ORDERED: ACETAMINOPHEN 325 MG TAB PO PRN (18:33)
--- NOTE | 2022-03-20 18:33 | History and Physical Report ---
History of Present Illness Date of examination: 03/20/22 Date of admission: 03/20/2022 Chief complaint: Persistent vomiting since yesterday History of present illness: 36-year-old -[place] female with history of gastroparesis and noncompliance with EtOH dependence and marijuana dependence comes in for persistent vomiting since yesterday. Patient has history of gastroparesis. No fever or chills. No diarrhea. [facility] Anion gap of 27. In the emergency room patient is vomiting and did not improve with IV fluids and insulin. Hence patient being admitted to ICU for insulin drip and IV fluids. Patient is a bit lethargic but responsive - Past Medical Histor --Diabetes: --Gastroparesis - Surgical History --Additional Surgical History: 3 c-sections - Social History --Smoking Status: Current Every Day Smoker --Substance Use Type: Alcohol --THC dependence -Family history --Htn Review of Systems ROS: Stated complaint: HIGH BLOOD SUGAR Other details as noted in HPI Constitutional: denies: chills, fever Eyes: denies: eye pain, eye discharge, vision change ENT: denies: ear pain, throat pain Respiratory: denies: cough, shortness of breath, wheezing Cardiovascular: denies: chest pain, palpitations Endocrine: no symptoms reported Gastrointestinal: denies: abdominal pain, nausea, diarrhea Genitourinary: denies: urgency, dysuria, discharge Musculoskeletal: denies: back pain, joint swelling, arthralgia Skin: denies: rash, lesions Neurological: denies: headache, weakness, paresthesias Psychiatric: denies: anxiety, depression Hematological/Lymphatic: denies: easy bleeding, easy bruising Medications and Allergies Allergies Allergy/AdvReac Type Severity Reaction Status Date / Time No Known Allergies Allergy Verified 03/20/22 10:17 Home Medications Medication Instructions Recorded Confirmed Last Taken Type Nicotine [Habitrol] 14 mg TD QDAY #30 patch 04/04/19 04/23/20 00:00 Rx 14 Temazepam [Restoril] 15 mg PO QHS #7 capsule 04/04/19 04/23/20 00:00 Rx 15 Ondansetron [Zofran ODT TAB] 8 mg PO Q12HR #14 tab.rapdis 07/11/19 04/23/20 00:00 Rx 8 guaiFENesin/CODEINE [Robitussin AC] 5 ml PO Q6H PRN #120 ml 07/11/19 04/23/20 03:00 Rx Dicyclomine [Bentyl] 20 mg PO Q8HR PRN #14 tablet 09/17/19 04/25/20 04/23/20 00:00 Rx Ondansetron [Zofran ODT TAB] 4 mg PO Q8HR PRN #14 tab.rapdis 09/17/19 04/23/20 00:00 Rx 4 Insulin NPH Hum/Reg Insulin Hm 34 unit SQ QPM #2 vial 04/25/20 Unknown Rx [Novolin 70-30 100 Unit/ml Vial] Insulin NPH Hum/Reg Insulin Hm 38 units SUB-Q QAM #2 vial 04/25/20 Unknown Rx [Novolin 70-30 100 Unit/ml Vial] Metoclopramide HCl [Reglan TAB] 5 mg PO TIDAC #21 tablet 04/25/20 Unknown Rx Ondansetron [Zofran Odt] 4 mg PO Q8HR PRN #10 tab.rapdis 11/30/20 Unknown Rx HYDROcodone/APAP 5-325 [[place] 1 each PO Q6HR PRN #10 tablet 01/16/22 Unknown Rx 5/325] Metoclopramide [Reglan] 10 mg PO TID #30 tab 01/16/22 Unknown Rx Promethazine [Phenergan] 25 mg UT Q6HR PRN #5 supp.rect 01/16/22 Unknown Rx Metoclopramide [Reglan] 10 mg PO TID #20 tab 02/15/22 Unknown Rx Metoclopramide [Reglan] 10 mg PO TID #14 tab 03/20/22 Unknown Rx Exam - Constitutional Vitals: Temp Pulse Resp BP Pulse Ox 64 18 154/87 99 03/20/22 17:24 03/20/22 17:24 03/20/22 17:24 03/20/22 18:01 General appearance: Present: mild distress, well-nourished - EENT Eyes: Present: PERRL ENT: hearing intact, clear oral mucosa - Neck Neck: Present: supple, normal ROM - Respiratory Respiratory effort: normal Respiratory: bilateral: CTA - Cardiovascular Heart rate: 98 Rhythm: regular Heart Sounds: Present: S1 & S2. Absent: rub, click - Extremities Extremities: no ischemia, pulses intact, pulses symmetrical, No edema Peripheral Pulses: within normal limits - Abdominal General gastrointestinal: Present: soft, tender, non-distended, normal bowel sounds Localized gastrointestinal: tender: diffuse Female genitourinary: Present: normal - Rectal Rectal Exam: deferred - Integumentary Integumentary: Present: clear, warm, dry - Musculoskeletal Musculoskeletal: gait normal, strength equal bilaterally - Psychiatric Psychiatric: appropriate mood/affect, intact judgment & insight - Neurologic Neurologic: CNII-XII intact, moves all extremities, other (Slightly lethargic) HEART Score - HEART Score Troponin: Troponin T < 0.010 ng/mL (0.00-0.029) 03/20/22 10:45 Results - Labs CBC & Chem 7: 03/21/22 04:01 03/21/22 04:01 Labs: Laboratory Last Values ABG pH 7.343 pH Units (7.350-7.450) L 03/20/22 13:40 ABG pCO2 34.0 mm Hg 03/20/22 13:40 ABG pO2 201.0 mm Hg (80.0-90.0) H 03/20/22 13:40 ABG HCO3 18.1 mmol/L (20.0-26.0) L 03/20/22 13:40 ABG O2 Saturation 99.2 % (95.0-99.0) H 03/20/22 13:40 ABG O2 Content 16.3 (0.0-44) 03/20/22 13:40 ABG Base Excess -6.8 mmol/L (-2.0-3.0) L 03/20/22 13:40 ABG Hemoglobin 11.6 gm/dl (12.0-16.0) L 03/20/22 13:40 ABG Carboxyhemoglobin 1.2 % (0.0-5.0) 03/20/22 13:40 ABG Methemoglobin 0.5 % (0.0-1.5) 03/20/22 13:40 Oxyhemoglobin 97.5 % (95.0-99.0) 03/20/22 13:40 FiO2 36 % 03/20/22 13:40 Sodium 141 mmol/L (137-145) 03/20/22 15:51 Potassium 3.7 mmol/L (3.6-5.0) 03/20/22 15:51 Chloride 106.5 mmol/L (98-107) 03/20/22 15:51 Carbon Dioxide 20 mmol/L (22-30) L 03/20/22 15:51 Anion Gap 18 mmol/L 03/20/22 15:51 BUN 8 mg/dL (7-17) 03/20/22 15:51 Creatinine 0.4 mg/dL (0.6-1.2) L 03/20/22 15:51 Estimated GFR > 60 ml/min 03/20/22 15:51 BUN/Creatinine Ratio 20 % 03/20/22 15:51 Glucose 225 mg/dL (65-100) H 03/20/22 15:51 POC Glucose 429 mg/dL (70-105) H 03/20/22 11:19 Ketones Quantitative Negative (Negative) 03/20/22 10:45 Calcium 8.6 mg/dL (8.4-10.2) 03/20/22 15:51 Phosphorus 2.00 mg/dL (2.5-4.5) L 03/20/22 12:01 Magnesium 1.70 mg/dL (1.7-2.3) 03/20/22 12:01 Total Bilirubin 1.40 mg/dL (0.1-1.2) H 03/20/22 10:45 AST 27 units/L (5-40) 03/20/22 10:45 ALT 33 units/L (7-56) 03/20/22 10:45 Alkaline Phosphatase 218 units/L (35-129) H 03/20/22 10:45 Total Creatine Kinase 127 units/L (30-135) 03/20/22 10:45 CK-MB (CK-2) 7.2 ng/mL (0.0-4.0) H 03/20/22 10:45 CK-MB (CK-2) Rel Index 5.6 (0-4) H 03/20/22 10:45 Troponin T < 0.010 ng/mL (0.00-0.029) 03/20/22 10:45 C-Reactive Protein 0.50 mg/dL (0.00-1.30) 03/20/22 10:45 NT-Pro-B Natriuret Pep 89.44 pg/mL (0-450) 03/20/22 10:45 Total Protein 7.1 g/dL (6.3-8.2) 03/20/22 10:45 Albumin 4.8 g/dL (3.9-5) 03/20/22 10:45 Albumin/Globulin Ratio 2.1 % 03/20/22 10:45 Lipase 37 units/L (13-60) 03/20/22 10:45 Urine Color Straw (Yellow) 03/20/22 11:41 Urine Turbidity Slightly cloudy (Clear) 03/20/22 11:41 Specific [place] (Man) 1.015 (1.003-1.030) 03/20/22 11:41 Ur Protein (Man) 1+ mg/dL (Negative) 03/20/22 11:41 Ur Ketones (Man) Negative (Negative) 03/20/22 11:41 Ur Nitrite (Man) Negative (Negative) 03/20/22 11:41 Ur Reducing Substances Not Reportable 03/20/22 11:41 Urine Bilirubin (Man) Negative (Negative) 03/20/22 11:41 Urine Ictotest Not Reportable 03/20/22 11:41 Leukocyte Esterase (Man) Negative (Negative) 03/20/22 11:41 Urine WBC (Auto) 1.0 /HPF (0.0-6.0) 03/20/22 11:41 Urine RBC (Auto) < 1.0 /HPF (0.0-6.0) 03/20/22 11:41 U Epithel Cells (Auto) < 1.0 /HPF (0-13.0) 03/20/22 11:41 Urine RBC (Manual) Negative (Negative) 03/20/22 11:41 Urine Opiates Screen Negative 03/20/22 11:41 Urine Methadone Screen Negative 03/20/22 11:41 Ur Barbiturates Screen Negative 03/20/22 11:41 Ur Phencyclidine Scrn Negative 03/20/22 11:41 Ur Amphetamines Screen Negative 03/20/22 11:41 U Benzodiazepines Scrn Negative 03/20/22 11:41 Urine Cocaine Screen Negative 03/20/22 11:41 U Marijuana (THC) Screen Positive 03/20/22 11:41 Drugs of Abuse Note Disclamer 03/20/22 11:41 Short CBC 03/20/22 03/21/22 Range/Units 23:18 04:01 WBC 8.8 9.0 (4.5-11.0) K/mm3 Hgb 11.5 10.9 (10.1-14.3) gm/dl Hct 34.1 32.0 (30.3-42.9) % Plt Count 238 234 (140-440) K/mm3 BMP 03/20/22 03/20/22 03/20/22 10:45 12:01 13:32 Sodium 136 L 139 141 Potassium 4.5 3.9 3.9 Chloride 98.0 103.3 106.2 Carbon Dioxide 16 L 17 L 18 L BUN 11 10 9 Creatinine 0.5 L 0.5 L 0.4 L Glucose 531 H* 411 H 326 H Calcium 9.9 8.7 8.6 03/20/22 03/20/22 03/21/22 15:51 23:18 04:01 Sodium 141 139 139 Potassium 3.7 4.0 3.6 Chloride 106.5 107.4 H 108.0 H Carbon Dioxide 20 L 17 L 18 L BUN 8 5 L 4 L Creatinine 0.4 L 0.3 L 0.3 L Glucose 225 H 200 H 164 H Calcium 8.6 8.1 L 8.0 L Cardiac Enzymes 03/20/22 Range/Units 10:45 Total Creatine Kinase 127 (30-135) units/L CK-MB (CK-2) 7.2 H (0.0-4.0) ng/mL Troponin T < 0.010 (0.00-0.029) ng/mL Liver Function 03/20/22 03/21/22 Range/Units 10:45 04:01 Total Bilirubin 1.40 H 1.00 (0.1-1.2) mg/dL AST 27 16 (5-40) units/L ALT 33 24 (7-56) units/L Alkaline Phosphatase 218 H 76 (35-129) units/L Albumin 4.8 4.1 (3.9-5) g/dL Urine 03/20/22 Range/Units 11:41 Urine Color Straw (Yellow) - Imaging and Cardiology Chest x-ray: report reviewed (No acute findings) Assessment and Plan Assessment and plan: Critical care statement The high probability OF a clinically significant sudden or life-threatening deterioration of the cardiorespiratory system and endocrine system required my full and direct attention, intervention and postoperative management. The aggregate critical care time was 40 minutes. The time is in addition to time spent performing reported procedures but includes the followin: Data review and interpretation 2: Patient assessment and monitoring of vital signs 3: Documentation 4:: Medication orders and management Advance Directives: Yes (Full code) VTE prophylaxis?: Chemical Plan of care discussed with patient/family: Yes - Patient Problems (1) DKA (diabetic ketoacidosis) Current Visit: Yes Status: Acute Qualifiers: Diabetes mellitus type: type 1 Diabetes mellitus complication detail: without coma Qualified Code(s): E10.10 - Type 1 diabetes mellitus with ketoacidosis without coma Plan to address problem: DKA protocol IV fluids IV insulin Patient's anion gap is 27 Because of IV insulin drip patient being admitted to ICU Glucose level was 531 Patient to be transitioned to basal bolus insulin regimen at the time of discharge. Diet diabetes education to be reemphasized. Patient is noncompliant. (2) Hyponatremia Current Visit: Yes Status: Acute Plan to address problem: Mild Should improve with correction of blood glucose levels (3) Gastroparesis Current Visit: Yes Status: Acute Plan to address problem: IV Reglan and IV Zofran. IV fluids. (4) Nicotine dependence Current Visit: Yes Status: Chronic Qualifiers: Nicotine product type: cigarettes Plan to address problem: Patient counseled about stopping smoking and nicotine patch was applied. Smoking cessation counseling less than 10 minutes (5) Tetrahydrocannabinol (THC) dependence Current Visit: Yes Status: Chronic Plan to address problem: Patient counseled. (6) EtOH dependence Current Visit: Yes Status: Chronic Qualifiers: Substance use status: uncomplicated Qualified Code(s): F10.20 - Alcohol dependence, uncomplicated Plan to address problem: CIWA protocol if necessary. (7) DVT prophylaxis Current Visit: Yes Status: Acute Plan to address problem: On heparin and GI prophylaxis (8) Advance care planning Current Visit: Yes Status: Acute Plan to address problem: Disease education conducted, care plan discussed, diagnosis discussed and patient acknowledged understanding with care plan. Patient is full code. +30 minutes.
[2022-03-20] MEDS ORDERED: ONDANSETRON 4 MG ODT TAB PO PRN (18:38)
[2022-03-20] MEDS ORDERED: DICYCLOMINE 20 MG TAB PO PRN (18:38)
[2022-03-20] MEDS ORDERED: guaiFENesin/CODEINE 100-10MG ORAL LIQD 5 ML PO PRN (18:38)
[2022-03-20] MEDS ORDERED: INSULIN REGULAR, HUMAN 100 UNITS in SODIUM CHLORIDE 0.9% 99 ML IV SCH (19:00)
[2022-03-20] MEDS: D5W/0.45% NACL/KCL 20 MEQ 20 MEQ/1,000 ML BAG IV SCH (21:02)
[2022-03-20] MEDS: METOCLOPRAMIDE 10 MG TAB PO SCH (21:46)
[2022-03-20 23:32] LABS: Basophils % (Auto) 0.3 % (0.0-1.8); Hematocrit 34.1 % (30.3-42.9); Hemoglobin 11.5 gm/dl (10.1-14.3); Lymphocytes # (Auto) 0.9 K/mm3 (1.2-5.4); Mean Corpuscular HGB Conc 34 % (30-34); Mean Corpuscular Volume 94 fl (79-97); Monocytes # (Auto) 0.1 K/mm3 (0.0-0.8); Monocytes % (Auto) 1.7 % (0.0-7.3); Platelet Count 238 K/mm3 (140-440); Red Blood Count 3.62 M/mm3 (3.65-5.03); Red Cell Distribution Width 13.3 % (13.2-15.2)
[2022-03-21 00:04] LABS: Blood Urea Nitrogen 5 mg/dL (7-17); Calcium 8.1 mg/dL (8.4-10.2); Hemolysis Index 45
[2022-03-21 00:10] LABS: BUN/Creatinine Ratio 17
[2022-03-21] MEDS: D5W/0.45% NACL/KCL 20 MEQ 20 MEQ/1,000 ML BAG IV SCH (04:06)
[2022-03-21 04:40] LABS: Basophils # (Auto) 0.2 K/mm3 (0.0-0.1); Basophils % (Auto) 1.8 % (0.0-1.8); Hemoglobin 10.9 gm/dl (10.1-14.3); Lymphocytes # (Auto) 0.8 K/mm3 (1.2-5.4); Lymphocytes % (Auto) 8.3 % (13.4-35.0); Mean Corpuscular HGB Conc 34 % (30-34); Mean Corpuscular Volume 93 fl (79-97); Monocytes # (Auto) 0.3 K/mm3 (0.0-0.8); Monocytes % (Auto) 3.9 % (0.0-7.3); Platelet Count 234 K/mm3 (140-440); Red Blood Count 3.45 M/mm3 (3.65-5.03); Red Cell Distribution Width 13.4 % (13.2-15.2)
[2022-03-21 04:59] LABS: Alanine Aminotransferase 24 units/L (7-56); Albumin 4.1 g/dL (3.9-5); Blood Urea Nitrogen 4 mg/dL (7-17); Hemolysis Index 3
[2022-03-21 05:02] LABS: BUN/Creatinine Ratio 13
[2022-03-21] MEDS ORDERED: DEXTROSE 50% IN WATER (25GM) 50 ML SYRINGE IV PRN (08:31)
[2022-03-21] MEDS ORDERED: ONDANSETRON 4 MG/2 ML INJ IV PRN (08:33)
[2022-03-21] MEDS: METOCLOPRAMIDE 10 MG TAB PO SCH (09:00)
[2022-03-21] MEDS ORDERED: INSULIN NPH/REGULAR 70/30 INJ SUB-Q SCH ×3 (09:00→18:00)
[2022-03-21] MEDS ORDERED: MAGNESIUM SULFATE 4 GM/100 ML BAG IV SCH (09:00)
[2022-03-21] MEDS ORDERED: POTASSIUM PHOSPHATE 30 MMOL in SODIUM CHLORIDE 0.9% 500 ML 500 ML IV SCH (09:00)
--- NOTE | 2022-03-21 09:24 | Electrocardiograph Report ---
[facility] Test Date: 2022-03-20 Test Time: 11:04:25 Pat Name: DIOGENES FERNANDEZ Department: Room: A258 Gender: F Documentation Engineer: [id number] : 1985 Requested By: RYLEY ESTRADA Order Number: [id number] Reading MD: Carlos A Hector Measurements Intervals [place] Rate: 68 P: 80 [place]: 185 QRS: 66 QRSD: 77 T: 62 QT: 418 QTc: 446 Interpretive Statements Normal Sinus Rhythm with sinus arrthymia No previous ECG available for comparison Electronically Signed On 03-21-2022 9:23:59 EDT by Carlos A Hector
[2022-03-21] MEDS ORDERED: NICOTINE 14 MG/24 HR PATCH TD SCH (10:00)
--- NOTE | 2022-03-21 10:29 | Event Note ---
Date: 03/21/22 Patient gap closed and transitioned to long acting insulin. Patient needs and would benefit extremely from Diabetic education, especially about drugs as she was using her 70/30 as sliding scale insulin. Transfer to floor as long as she tolerates PO
[2022-03-21] MEDS ORDERED: INSULIN LISPRO 100 UNIT/ML SUB-Q SCH (11:30)
--- NOTE | 2022-03-21 11:40 | Discharge Summary ---
Providers - Providers Date of Admission: 03/20/22 18:33 Date of discharge: 03/21/22 Attending physician: SIENA GUERRA MD 03/20/22 18:33 Consult to Physician [CONS] Routine Comment: Consulting Provider: SHAISTA TOMLIN Physician Instructions: Reason For Exam: dka 03/21/22 11:35 Consult to Dietitian/Nutrition [CONS] Routine Physician Instructions: Reason For Exam: Reason for Consult: Diet education Primary care physician: ZACARIAS BORJAS Hospitalization Condition: Stable Hospital course: This is a 36-year-old female with gastroparesis, noncompliance, former nicotine abuse (quit 2 years ago), etoh and marijuana dependence presented to the emergency department on 03/20 with the vomiting. In the emergency department patient's blood glucose was found 531, anion gap of 27 and the patient was admitted to the ICU on the DKA protocol with insulin drip. This morning patient has been transitioned off of insulin to long-acting insulin. Medication compliance strongly encouraged. Patient will be discharged home. Will need to follow-up with primary care physician within 1 to 2 weeks of discharge. Assessment and Plan Neuro: EtOH and Marijuana abuse, medical noncompliance -UDS positive for marijuana -Cessation of substance abuse strongly encouraged -Medical compliance strongly encouraged Respiratory: Former nicotine abuse -Per patient she quit 2 years ago GI: s/p severe vomiting, h/o gastroparesis -Resume home Reglan -Follow-up with primary care physician within 1 to 2 weeks of discharge : Hypophosphatemia, hypomagnesemia, high anion gap metabolic acidosis (resolved) -Phos 2.10, Mag 1.6 -Repleted with IV potassium phosphate and IV magnesium Endo: s/p hyperglycemia in setting of h/o DM -S/p insulin drip -Novolin 70/30 -SSI -Resume Accu-Cheks per primary care physician instructions -Continue controlled carbohydrate diet -Avoid hypoglycemia Disposition: 01 HOME / SELF CARE / HOMELESS Final Discharge Diagnosis (Prints w/discharge instructions): EtOH and Marijuana abuse, medical noncompliance, Former nicotine abuse, h/o gastroparesis, Hypophosphatemia, hypomagnesemia, high anion gap metabolic acidosis (resolved), s/p several hypoglycemia in setting of diabetic mellitus Time spent for discharge: 60 Core Measure Documentation - Palliative Care Palliative Care/ Comfort Measures: Not Applicable - Core Measures Any of the following diagnoses?: none Exam - Constitutional Vitals: Temp Pulse Resp BP Pulse Ox 97.9 F 105 H 20 127/78 98 03/21/22 07:11 03/21/22 11:00 03/21/22 11:00 03/21/22 11:00 03/21/22 11:00 General appearance: Present: no acute distress - EENT Eyes: Present: PERRL, EOM intact ENT: hearing intact, clear oral mucosa - Neck Neck: Present: normal ROM - Respiratory Respiratory effort: normal Respiratory: bilateral: CTA - Cardiovascular Rhythm: regular Heart Sounds: Present: S1 & S2. Absent: systolic murmur, diastolic murmur - Extremities Extremities: no ischemia, pulses intact, pulses symmetrical, No edema, normal temperature, normal color, Full ROM Peripheral Pulses: within normal limits - Abdominal General gastrointestinal: Present: soft, non-tender, non-distended, normal bowel sounds - Integumentary Integumentary: Present: warm, dry - Musculoskeletal Musculoskeletal: strength equal bilaterally - Psychiatric Psychiatric: cooperative - Neurologic Neurologic: CNII-XII intact, no focal deficits, moves all extremities - Allied Health Allied health notes reviewed: nursing, social work Plan Activity: advance as tolerated Diet: diabetic Special Instructions: record blood sugar diary, smoking cessation Follow up with: ZACARIAS BORJAS MD [Primary Care Provider] - 7 Days Prescriptions: Lispro Insulin [HumaLOG] See Protocol SUB-Q ACHS #1 vial Insulin NPH/Regular [NovoLIN 70/30] 5 unit SUB-Q QPMDIAB #1 vial Insulin NPH/Regular [NovoLIN 70/30] 14 unit SUB-Q QDDIAB #1 vial Metoclopramide [Reglan] 10 mg PO TID #14 tab
[2022-03-21 16:36] VITALS: BP 123/89
== END 2022-03-21 18:00 | disposition home or self-care (01) | DRG 638 ==
LOC: ED 10:04 → CC1 18:33
PROVIDERS: ADMIT Internal Medicine; ATTEND Internal Medicine
DX: E10.10 Type 1 diabetes mellitus with ketoacidosis without coma (principal); E87.1 Hypo-osmolality and hyponatremia; F17.210 Nicotine dependence, cigarettes, uncomplicated; F12.20 Cannabis dependence, uncomplicated; Z91.19 Patient's noncompliance with other medical treatment and regimen; E83.39 Other disorders of phosphorus metabolism; E83.42 Hypomagnesemia; Z82.49 Family history of ischemic heart disease and other diseases of the circulatory system
CPT/HCPCS: 36415; 71045; 80048; 80053; 80307; 81001; 82010; 82550; 82553; 82803; 82962; 83036; 83690; 83735; 83880; 84100; 84484; 85025; 86140; 93005; G0378; J3480; J7510; Q0177; Q9967; J0780; J1815; J2405; J3475; J7030; J7040

== ENCOUNTER 2022-03-23 22:53 | Emergency (ER) | payer SELFPAY ==
[2022-03-23] MEDS ORDERED: SODIUM CHLORIDE 0.9% 1000 ML 1,000 ML IV ONE (23:23)
[2022-03-24 00:09] LABS: Basophils % (Auto) 0.6 % (0.0-1.8); Eosinophils % (Auto) 0.3 % (0.0-4.3); Hemoglobin 10.5 gm/dl (10.1-14.3); Lymphocytes # (Auto) 1.7 K/mm3 (1.2-5.4); Lymphocytes % (Auto) 28.5 % (13.4-35.0); Mean Corpuscular HGB Conc 34 % (30-34); Mean Corpuscular Volume 94 fl (79-97); Monocytes # (Auto) 0.4 K/mm3 (0.0-0.8); Monocytes % (Auto) 7.1 % (0.0-7.3); Platelet Count 207 K/mm3 (140-440); Red Blood Count 3.32 M/mm3 (3.65-5.03); Red Cell Distribution Width 13.3 % (13.2-15.2)
[2022-03-24 00:36] LABS: Creatine Kinase MB 2.2 ng/mL (0.0-4.0)
[2022-03-24 00:37] LABS: Alanine Aminotransferase 21 units/L (7-56); Albumin 4.1 g/dL (3.9-5); BUN/Creatinine Ratio 18; Blood Urea Nitrogen 9 mg/dL (7-17); Calcium 8.7 mg/dL (8.4-10.2); Hemolysis Index 3
--- NOTE | 2022-03-24 01:00 | Emergency Department Report ---
ED General Adult HPI - General Chief complaint: Hyperglycemia Stated complaint: HYPERGLYCEMIA,SYNCOPE PUI?: No Time Seen by Provider: 03/23/22 23:19 Source: EMS Mode of arrival: Stretcher Limitations: No Limitations - History of Present Illness Initial comments: PT WAS RECENTLY DISCHARGED FROM PSYCHIATRIC ON SUNDAY WITH DKA, NEWLY DIAGNOSED TYPE 2 DIABETIC, LAST BGL - 597, GCS - 14, PT TOOK 8 UNITS OF NOVOLOG PRIOR TO EMS ARRIVAL, STATES SHE HAD A NEAR SYNCOPAL EPISDOE AT WORK THIS EVENING, 12 LEAD WAS SINUS TACH WITH EMS -: Gradual Radiation: non-radiation Consistency: intermittent Improves with: none Worsens with: none Associated Symptoms: denies: denies other symptoms, confusion, chest pain, cough Treatments Prior to Arrival: none - Related Data Previous Rx's Medication Instructions Recorded Last Taken Type Dicyclomine [Bentyl] 20 mg PO Q8HR PRN #14 tablet 09/17/19 04/23/20 00:00 Rx Metoclopramide [Reglan TAB] 10 mg PO TID #30 tab 01/16/22 Unknown Rx Metoclopramide [Reglan] 10 mg PO TID #14 tab 03/20/22 Unknown Rx Acetaminophen [Acetaminophen TAB] 650 mg PO Q4H PRN tablet 03/21/22 Unknown Rx Insulin NPH/Regular [NovoLIN 70/30] 5 unit SUB-Q QPMDIAB #1 vial 03/21/22 Unknown Rx Insulin NPH/Regular [NovoLIN 70/30] 14 unit SUB-Q QDDIAB #1 vial 03/21/22 Unknown Rx Lispro Insulin [HumaLOG] See Protocol SUB-Q ACHS #1 vial 03/21/22 Unknown Rx Allergies Allergy/AdvReac Type Severity Reaction Status Date / Time No Known Allergies Allergy Verified 03/20/22 10:17 ED Review of Systems ROS: Stated complaint: HYPERGLYCEMIA,SYNCOPE Other details as noted in HPI Constitutional: denies: chills, fever Eyes: denies: eye pain, eye discharge, vision change ENT: denies: ear pain, throat pain Respiratory: denies: cough, shortness of breath, wheezing Cardiovascular: denies: chest pain, palpitations Endocrine: no symptoms reported Gastrointestinal: denies: abdominal pain, nausea, diarrhea Genitourinary: denies: urgency, dysuria, discharge Musculoskeletal: denies: back pain, joint swelling, arthralgia Skin: denies: rash, lesions Neurological: denies: headache, weakness, paresthesias Psychiatric: denies: anxiety, depression Hematological/Lymphatic: denies: easy bleeding, easy bruising ED Past Medical Hx - Past Medical History Previous Medical History?: Yes Hx Congestive Heart Failure: No Hx Diabetes: Yes Hx Asthma: No Hx COPD: No - Surgical History Past Surgical History?: Yes Additional Surgical History: 3 c-sections - Social History Smoking Status: Former Smoker Substance Use Type: Alcohol - Medications Home Medications: Home Medications Medication Instructions Recorded Confirmed Last Taken Type Dicyclomine [Bentyl] 20 mg PO Q8HR PRN #14 tablet 09/17/19 04/25/20 04/23/20 00:00 Rx Metoclopramide [Reglan TAB] 10 mg PO TID #30 tab 01/16/22 Unknown Rx Metoclopramide [Reglan] 10 mg PO TID #14 tab 03/20/22 Unknown Rx Acetaminophen [Acetaminophen TAB] 650 mg PO Q4H PRN tablet 03/21/22 Unknown Rx Insulin NPH/Regular [NovoLIN 70/30] 5 unit SUB-Q QPMDIAB #1 vial 03/21/22 Unknown Rx Insulin NPH/Regular [NovoLIN 70/30] 14 unit SUB-Q QDDIAB #1 vial 03/21/22 Unknown Rx Lispro Insulin [HumaLOG] See Protocol SUB-Q ACHS #1 vial 03/21/22 Unknown Rx ED Physical Exam - General Limitations: No Limitations General appearance: alert, in no apparent distress - Head Head exam: Present: atraumatic, normocephalic - Eye Eye exam: Present: normal appearance - ENT ENT exam: Present: mucous membranes moist - Neck Neck exam: Present: normal inspection - Respiratory Respiratory exam: Present: normal lung sounds bilaterally. Absent: respiratory distress - Cardiovascular Cardiovascular Exam: Present: regular rate, normal rhythm. Absent: systolic murmur, diastolic murmur, rubs, gallop - GI/Abdominal GI/Abdominal exam: Present: soft, normal bowel sounds - Extremities Exam Extremities exam: Present: normal inspection - Back Exam Back exam: Present: normal inspection - Neurological Exam Neurological exam: Present: alert, oriented X3 - Psychiatric Psychiatric exam: Present: normal affect, normal mood - Skin Skin exam: Present: warm, dry, intact, normal color. Absent: rash ED Course Vital Signs 09/08/22 22:57 Temperature 98.1 F Pulse Rate 103 H Respiratory 18 Rate Blood Pressure 110/78 O2 Sat by Pulse 98 Oximetry ED Medical Decision Making - Lab Data Result diagrams: 03/23/22 23:51 03/23/22 23:51 - Medical Decision Making fluids given BS is 348 , no ketosis no gap no acidosis Critical care attestation.: If time is entered above; I have spent that time in minutes in the direct care of this critically ill patient, excluding procedure time. ED Disposition Clinical Impression: Hyperglycemia Disposition: 01 HOME / SELF CARE / HOMELESS Is pt being admited?: No Does the pt Need Aspirin: No Condition: Stable Instructions: Hyperglycemia Referrals: ZACARIAS BORJAS MD [Primary Care Provider] - 3-5 Days
[2022-03-24 02:51] VITALS: BP 129/74
== END 2022-03-24 02:51 | disposition home or self-care (01) ==
LOC: ED 22:53
DX: E11.65 Type 2 diabetes mellitus with hyperglycemia (principal); Z87.891 Personal history of nicotine dependence; F10.20 Alcohol dependence, uncomplicated
CPT/HCPCS: 36415; 80053; 82010; 82550; 82553; 84484; 85025; 96360; 99283; J7030; 80320; G0480